=== PATIENT | female | born 1940 | race Caucasian/White ===

== ENCOUNTER 2023-08-12 09:37 | Inpatient (IN) | payer OTHER, SELFPAY ==
[2023-08-12] VITALS (11 sets, daily range): BP systolic 95–120; BP diastolic 51–85; BMI 28.0
[2023-08-12 05:21] LABS: % Basophils 0.3 % (0-2); % Eosinophils 0.6 % (0-6); % Immature Granulocytes 0.4 % (0-0.5); % Lymphocytes 7.9 % (20.5-51.1); % Monocytes 5.4 % (1.7-9.3); % Neutrophils 85.4 % (42.2-75.2); Absolute Lymphocytes 0.6 10^3/uL (1.2-3.4); Absolute Monocytes 0.4 10^3/uL (0.1-0.6); Hematocrit 39.5 % (37.0-47.0); Hemoglobin 13.2 g/dL (12.0-16.0); Mean Corp Hgb Conc. 33.4 g/dL (33.0-37.0); Mean Corpuscular Hgb 29.5 pg (27.0-31.0); Mean Corpuscular Volume 88.4 fL (81.0-99.0); Mean Platelet Volume 10.6 fL (7.4-10.4); Nucleated Red Blood Cells % 0 %; Platelet Count 197 10^3/uL (130-400); Red Blood Cell Count 4.47 10^6/uL (4.20-5.40)
[2023-08-12 05:33] LABS: ALT (SGPT) 15 U/L (0-35); AST (SGOT) 23 U/L (14-36); Albumin 3.2 g/dl (3.5-5.0); Alkaline Phosphatase 61 U/L (38-126); Blood Urea Nitrogen 14 mg/dl (7-17); Calcium 8.9 mg/dl (8.4-10.2); Carbon Dioxide 35 mmol/L (22-30); Chloride 97 mmol/L (98-107); Glucose 101 mg/dl (70-99); Lipase 63 U/L (23-300); Sodium 134 mmol/L (135-145); Total Protein 6.4 g/dl (6.3-8.2); eGFR > 60.00
--- NOTE | 2023-08-12 06:23 | ED.GENMED ---
History of Present Illness
General
Chief Complaint: Abdominal Pain
Time Seen by Provider: 08/12/23 06:23
Travel History
Have you had any contact with someone who has COVID-19?: No
Do you have any symptoms of coronavirus? Fever > 100 degrees, chills, cough, shortness of breath, sore throat, loss of taste or smell, muscle aches, or headache?: No
History of Present Illness
History of Present Illness:
HPI: Patient presents due to abdominal pain over the last 18 hours associated with nausea. She currently has no appetite. This feels similar to the time that she was admitted here with a Crohn's exacerbation. She is known to GI at [facility]. She chronically has loose stool. Her abdominal pain is diffuse. She has had no fevers.
EXAM:
GENERAL: Patient appears uncomfortable
HEENT: Moist oral mucosa
CARDIOVASCULAR: No murmurs, normal heart rate, regular rhythm, No chest wall tenderness
PULMONARY: No respiratory distress, breath sounds are clear and equal
ABDOMEN: Soft with no peritoneal signs, moderate diffuse tenderness
NEUROLOGIC: Good strength all extremities, no coordination deficits
PSYCHIATRIC: Appropriate mental status, normal insight and judgement
EXTREMITIES: Nontender, no edema, moves all extremities equally
SKIN: No rash, no lesions
TIME OF INITIAL ENCOUNTER: 6:30 AM
NUMBER AND COMPLEXITY OF PROBLEMS ADDRESSED AT THE ENCOUNTER
� Chronic conditions affecting care: A-fib, high blood pressure, hyperlipidemia, has had bowel obstruction, Crohn's disease, GERD
� Acute Exacerbation and/or Progression of Chronic Illness: Likely acute exacerbation of Crohn's disease
� Differential Diagnosis includes: Exacerbation of Crohn's disease, bowel obstruction, IBS, diverticulitis
AMOUNT AND/OR COMPLEXITY OF DATA TO BE REVIEWED AND ANALYZED
� I performed an independent evaluation of and my interpretation is:
EKG:
CT: I personally reviewed CT imaging and agree with radiologist interpretation of SBO
X-rays:
Laboratory Studies: White count is normal at 7.0, hemoglobin normal, bicarb noted to be elevated 35 otherwise chemistries relatively unremarkable
Other:
� Review of other/old records: The patient was seen here last October with CHF and was admitted here last September with abdominal pain�discharge summary suggest that this was related to an acute Crohn's flare
� Clinical information was obtained by an independent historian: Spoke to the daughter at bedside; I also spoke to granddaughter over the phone
� Prescriptions/Medications Considered but not given:
� Further testing considered but not performed:
RISK OF COMPLICATIONS AND/OR MORBIDITY OR MORTALITY OF PATIENT MANAGEMENT
� Social determinants of health affecting care: Lives at home
� Discussion with other providers: Notified general surgery; hospitalist for admission at about 9 AM, Dr. Wood
� Escalation of care including admission/observation vs risk of discharge considered: The patient appeared very uncomfortable on arrival, will give narcotic analgesia and obtain CT imaging. Labs are unremarkable. SBO was found
on CT. Patient refuses NG tube citing prior altered anatomy. Will hold off on NG tube placement as she has not been vomiting here. She was given IV fluids.
Past History
Past History
ED Past Medical History: Arrthythmia, CVA and Other (Crohn's disease)
ED Past Surgical History: Orthopedic and Other (Nose, left hip replacement left breast surgery)
Social History
Tobacco: Non-smoker
Alcohol: None
Drug: None
Personal:
Living: with family
Employment: Retired
Family History
Family History: Other (Noncontributory)
Phy Exam
Physical Exam
Physical Exam:
See HPI
Course
Orders/Labs/Results
Orders:
Orders
08/12/23 04:57
IV Insert/Care/Rem.- Treatment PRN
Urinalysis Reflex To Culture Urgent
Date Specimen was Collected: 08/12/23
Time Specimen was Collected: 04:57
03/18/24 05:03
C-Reactive Protein Urgent
Comment: ADD ON
Complete Blood Count/With Diff Urgent
Comprehensive Metabolic Panel Urgent
Lipase Urgent
08/12/23 06:26
Add On- LAB Urgent
Tests Added?: cRP
08/12/23 06:29
CT Abd/pelvis W Iv Cont Urgent
Comment:
Reason For Exam: diffuse abd pain h/o crohn's cannot davide po
08/12/23 06:30
0.9% Sodium Chloride 500 ml [Nss] 500 ml IV BOLUS
HYDROmorphone [Dilaudid] 0.5 mg IV NOW STA
Ondansetron Injectable [Zofran] 4 mg IV NOW STA
Abnormal Lab Results
08/12/23
05:03
MPV 10.6 H fL
(7.4-10.4)
Absolute Lymphs (auto) 0.6 L 10^3/uL
(1.2-3.4)
Neutrophils % 85.4 H %
(42.2-75.2)
Lymphocytes % 7.9 L %
(20.5-51.1)
Sodium 134 L mmol/L
(135-145)
Chloride 97 L mmol/L
(98-107)
Carbon Dioxide 35 H mmol/L
(22-30)
Creatinine 0.5 L mg/dL
(0.6-1.0)
Glucose 101 H mg/dl
(70-99)
Albumin 3.2 L g/dl
(3.5-5.0)
08/12/23 05:03
08/12/23 05:03
Vital Signs
Initial and Last Documented VS:
Initial Vital Signs
Pulse Resp BP Pulse Ox
108 24 120/85 94
08/12/23 04:15 08/12/23 04:15 08/12/23 04:15 08/12/23 04:15
Last Documented Vital Signs
Temp Pulse Resp BP Pulse Ox
97.8 F 108 24 105/62 100
08/12/23 07:28 08/12/23 04:15 08/12/23 04:15 08/12/23 08:00 08/12/23 08:30
*Critical Care Note
Total Time (30-74mins, 75-104mins- exclusive of procedures): Not Applicable
ED Attending Note
-
Portions of this chart may have been created with voice recognition software.� Occasional wrong word or��sound alike� substitutions may have occurred due to the inherent limitations of voice recognition software.
Discharge Plan
Departure
Patient Disposition: Admit
Date of Disposition: 08/12/23
Time of Disposition: 08:53
Presentation/result/management discussed w/ accepting MD/DO: Hospitalist
Discharge Problem:
Small bowel obstruction
Prescriptions:
No Action
pantoprazole 40 MG tablet,delayed release (DR/EC)
40 mg PO DAILY
multivitamin with folic acid [Tab-A-Varinder] 1 TABLET tablet
1 tab PO DAILY
Prolia 60 MG/ML syringe
60 mg SC [id number]
atorvastatin 40 mg Tablet
40 mg PO HS
furosemide [Lasix] 20 mg Tablet
20 mg PO DAILYPRN PRN (Reason: fluid )
Eliquis 5 mg Tablet
5 mg PO BID
metoprolol succinate 50 MG tablet extended release 24 hr
50 mg PO DAILY
alprazolam 1 mg tablet
1 mg PO HS
omega-3 acid ethyl esters 1 gram capsule
1 g PO DAILY
Visbiome 112.5 billion cell Capsule
1 cap PO DAILY
Entyvio 300 mg Recon Soln
300 mg IV Q4W
Referrals:
Johan Cunningham DO [Family Provider] -
Interventions
Interventions:
*Risk Screen - Suicide Last Done: 08/12/23 05:39
*Neglect/Abuse Screening Last Done: 08/12/23 05:39
*ED COVID-19 Vaccine History Last Done: 08/12/23 05:39
VS-Htrxxj-Cddzoweufk Assessment Last Done: 08/12/23 05:09
[2023-08-12] MEDS: NSS 500 IV (06:38)
[2023-08-12] MEDS: ZOFRAN 4 MG IV (06:40)
[2023-08-12] MEDS: DILAUDID 0.5 MG IV ×3 (06:40→12:55)
--- NOTE | 2023-08-12 09:18 | HPS.HSE ---
Family Physician
-
Family Physician: Johan Cunningham
Chief Complaint
-
Abdominal pain for 1 day
History of Present Illness
History taken from the patient and ER physician. 83 years old female with history of Crohn's disease presented with abdominal pain and for around 1 day duration. Patient reported she had bowel movement yesterday. She tells me she has not passed
gas today. In the emergency room, she did not have leukocytosis or fever. Scan of the abdomen pelvis showed distal small bowel obstruction with transition point. Patient reported nausea but no vomiting. Patient takes Skyrizi for Crohn's disease
treatment.
Medical History
Past Medical History
Past Medical History: Reports Other ( Paroxysmal atrial fibrillation, Crohn's disease, normocytic anemia, diverticulosis, history of breast cancer, skin cancer, hyperlipidemia, GERD.)
Past Surgical History: Reports Other (No recent major surgery)
Social History
Tobacco: Former Smoker
Alcohol: Occasional
Drug: None
Family History
Family History: Other (Grandson with IBD. Mother of bladder cancer.)
Allergies / Home Medications
Allergies reflects when Allergies were last updated in [employer].
Home Medications with original date entered in [employer]
Allergy/Medication List:
Allergies
Allergy/AdvReac Type Severity Reaction Status Date / Time
No Known Allergies Allergy Verified 08/12/23 04:18
Home Medications
multivitamin with folic acid 400 mcg tablet (Tab-A-Varinder) 1 tab PO DAILY Supplement 03/13/20
pantoprazole 40 mg tablet,delayed release 40 mg PO DAILY Gastrointestinal issue 03/13/20
alprazolam 1 mg tablet 1 mg PO HS Mental Health/Anxiety 09/05/22
apixaban 5 mg tablet (Eliquis) 5 mg PO BID Blood clot prevention/tx 09/05/22
atorvastatin 40 mg tablet 40 mg PO HS High cholesterol 09/05/22
metoprolol succinate 50 mg tablet,extended release 24 hr 50 mg PO HS Blood pressure 09/05/22
omega-3 acid ethyl esters 1 gram capsule 1 g PO BID Supplement 09/05/22
cyanocobalamin (vitamin B-12) 1,000 mcg tablet (Vitamin B-12) 1,000 mcg PO DAILY Supplement 08/12/23
ergocalciferol (vitamin D2) 1,250 mcg (50,000 unit) capsule 1,250 mcg PO FR Supplement 08/12/23
furosemide 40 mg tablet 40 mg PO DAILYPRN PRN foot swelling 08/12/23
risankizumab-rzaa 360 mg/2.4 mL (150 mg/mL) subcut wearable injector (Skyrizi) 2.4 mg SC MONTHLY Crohn's disease 08/12/23
Review of Systems
-
History Source: Patient
A 12 point ROS was completed and negative except as noted: Yes
Constitutional: Denies Fever or Chills
EENT: Denies Sore Throat
Respiratory: Denies Cough
Cardiac: Denies Chest Pain
Abdomen/GI: Reports Abdominal Pain and Nausea
: Denies Dysuria
Musculoskeletal: Denies Joint Pain
Skin: Denies Itching
Neurological: Denies Numbness
Endocrine: Denies Temp Intolerance
Hematologic/Lymphatic: Denies Bruising
Psych: Denies Panic Disorder
Physical Exam
Vital Signs
Vital Signs
Temp Pulse Resp BP Pulse Ox
97.8 F 108 24 105/62 100
08/12/23 07:28 08/12/23 04:15 08/12/23 04:15 08/12/23 08:00 08/12/23 08:30
Physical Exam
General: No Apparent Distress and Comfortable
HEENT: Moist mucous membranes and Atraumatic
Respiratory: Clear
Cardiac: S1/S2
GI: Soft, Tender (left side) and Distended
Genito-urinary: No costovertebral tender
Musculoskeletal: No Clubbing, No Cyanosis and No Edema
Skin: Warm
Neuro: Oriented; No Slurred Speech, Facial Droop or Tremors
Psych: Calm
Laboratory Results
-
08/12/23 05:03
08/12/23 05:03
Laboratory Results
Total Bilirubin 1.0 mg/dl (0.2-1.3) 08/12/23 05:03
AST 23 U/L (14-36) 08/12/23 05:03
ALT 15 U/L (0-35) 08/12/23 05:03
Alkaline Phosphatase 61 U/L (38-126) 08/12/23 05:03
Lipase 63 U/L (23-300) 08/12/23 05:03
Impression/Plan
-
Patient is an 83y F with PMH significant for A-Fib and Crohn's Disease who presents to ED complaining of abdominal pain.
# Small bowel obstruction
History of Crohn's Disease
Admit the patient to the hospital.
Start the patient on bowel rest regimen with IV fluid, n.p.o., IV PPI, IV pain medicine, IV nausea medicine
�- CT scan shows Distal small bowel obstruction with transition point in the anterior right para midline lower abdomen related to long segment terminal ileal loop of bowel wall thickening extending to the ileocecal junction.
Follow-up with surgery recommendation
Appreciate surgery help
#Paroxysmal atrial fibrillation
Heart rate is stable. Patient denies palpitation or chest pain
Will get EKG as baseline
She is NPO. Will hold Eliquis.
Monitor on telemetry.
The patient on IV metoprolol
�- prior diagnosis of CVA -
#Anxiety / Depression
Mood is cooperative
# Hyponatremia, monitor. Repeat BMP. Continue with IV fluid
#DVT Prophylaxis:�Subcu heparin
Code Status:� Full
Total time spent to see the patient, examine the patient on the floor, review data and lab results, discuss treatment plan with the patient, nursing staff and ER doctor around 75 minutes
[2023-08-12 09:44] LABS: Urine Albumin Trace (Neg - Trace); Urine Bilirubin Negative (Negative); Urine Character Clear (Clear); Urine Color Yellow; Urine Glucose Negative (Negative); Urine Ketone Negative (Negative); Urine Leukocyte Trace (Negative); Urine Nitrite Negative (Negative); Urine Occult Blood Negative (Negative); Urine Urobilinogen Negative (Neg - 1+)
[2023-08-12 09:56] LABS: Urine Red Blood Cell 0-2 /HPF (0-2)
[2023-08-12] MEDS: D5/0.9% SODIUM CHLORIDE 1000 IV (10:44)
--- NOTE | 2023-08-12 14:08 | CON.GS ---
Addendum entered and electronically signed by Oral Gil MD 08/12/23 15:55:
I saw and examined the patient independently.
The Patternmaker Grader's note was reviewed and I agree with the note, assessment and plan except where noted below.
Comment: This is an 83-year-old female with a known large hiatal hernia and Crohn's disease with periodic admissions for small bowel obstruction secondary to flare and a long segment stricture that has to date been managed nonoperatively. She is
also on Eliquis for paroxysmal A-fib her last dose was 08/11/2023 PM. Abdominal exam fairly benign, mildly distended. CT scan reviewed significant terminal ileal stricture spanning over 10 cm. On review of previous CT scans this appears to be
fairly chronic. Of note patient is not interested in surgery, though family states that if needed they would move forward with that.
No acute general surgery intervention warranted at this time.
Small bowel obstruction secondary to active Crohn's flare.
Recommend GI consult for management of IBD flare.
General surgery will continue to follow but hopefully this can be managed nonoperatively. Will defer to GI regarding diet advancement but would keep n.p.o. for now given distention and nausea.
I spent roughly 65 minutes in total for the care of this patient today including direct patient care and counseling, reviewing labs, imaging, coordination of care, as well as documentation.
Original Note:
Consultation
-
Date/Time Consultation Requested: 08/12/23 1234
Requesting Provider: Patrick
Reason for Consultation: sbo
Medical History
-
Chief Complaint: Abdominal pain
History of Present Illness:
This is an 83 yo female with a h/o large hiatal hernia (evaluated by Dr. Christianson in the past and being followed nonoperatively), CVA, Breast CA, PAF on Eliquis (LD 08/11/23 in the evening) and Crohn's for which she takes Skyrizi and follows with
Do as an OP. Her last Crohn's flare requiring hospitalization was about one year ago with terminal ileal involvement at that time. She presented through this ED today as she developed abdominal pain about 36 hours ago and has been unable to pass
stool or flatus since onset of pain. She denies active nausea or vomiting. Pain is improved with analgesics but still with right sided tenderness and abdominal distention on exam.
Past Medical History
Past Medical History: Arrhythmias (PAF on Eliquis (LD evening of 08/10)), Cancer (Skin tx MOHs, Breast tx with lumpectomy and XRT), CVA, GERD (known large hiatal hernia), HTN, Hypercholesterolemia and Other (Crohn's of large and small bowel on
skyrizi, anemia)
Past Surgical History: Orthopedic (L THR) and Other (left lumpectomy, MOHs)
Social History
Tobacco: Former Smoker
Alcohol: Occasional
Family History
Family History: Other (Crohn's)
Allergies / Home Medications
Allergy/AdvReac Type Severity Reaction Status Date / Time
No Known Allergies Allergy Verified 08/12/23 04:18
Medication Instructions Recorded Confirmed Type
multivitamin with folic acid 400 1 tab PO DAILY Supplement 03/13/20 08/12/23 History
mcg tablet (Tab-A-Varinder)
pantoprazole 40 mg tablet,delayed 40 mg PO DAILY Gastrointestinal 03/13/20 08/12/23 History
release issue
alprazolam 1 mg tablet 1 mg PO HS Mental Health/Anxiety 09/05/22 08/12/23 History
apixaban 5 mg tablet (Eliquis) 5 mg PO BID Blood clot 09/05/22 08/12/23 History
prevention/tx
atorvastatin 40 mg tablet 40 mg PO HS High cholesterol 09/05/22 08/12/23 History
metoprolol succinate 50 mg 50 mg PO HS Blood pressure 09/05/22 08/12/23 History
tablet,extended release 24 hr
omega-3 acid ethyl esters 1 gram 1 g PO BID Supplement 09/05/22 08/12/23 History
capsule
cyanocobalamin (vitamin B-12) 1,000 mcg PO DAILY Supplement 08/12/23 08/12/23 History
1,000 mcg tablet (Vitamin B-12)
ergocalciferol (vitamin D2) 1,250 1,250 mcg PO FR Supplement 08/12/23 08/12/23 History
mcg (50,000 unit) capsule
furosemide 40 mg tablet 40 mg PO DAILYPRN PRN foot swelling 08/12/23 08/12/23 History
risankizumab-rzaa 360 mg/2.4 mL 2.4 mg SC MONTHLY Crohn's disease 08/12/23 08/12/23 History
(150 mg/mL) subcut wearable
injector (Skyrizi)
Review of Systems
-
Unable to obtain full review of systems at this time due to: Language Barrier (Family notes patient's primary language is Amharic. She was able to answer questions/converse in Uzbek. Family assisted with history.)
History Source: Patient and Family
All other systems: Negative unless noted
A 10 point review of systems was completed, and was negative except as per HPI.
Physical Exam
Vital Signs
Temp Pulse Resp BP Pulse Ox
97.3 F 93 16 117/72 95
08/12/23 13:04 08/12/23 13:04 08/12/23 13:04 08/12/23 13:04 08/12/23 13:17
08/11/23 08/12/23 08/13/23
06:59 06:59 06:59
Actual Weight 70 kg 69.485 kg
Body Mass Index (BMI) 28.0
Lab Results
08/12/23 05:03
08/12/23 05:03
WBC 7.0 10^3/uL (4.8-10.8) 08/12/23 05:03
Hgb 13.2 g/dL (12.0-16.0) 08/12/23 05:03
Hct 39.5 % (37.0-47.0) 08/12/23 05:03
Plt Count 197 10^3/uL (130-400) 08/12/23 05:03
Abs Immat Gran (auto) 0.0 10^3/uL (0-0.05) 08/12/23 05:03
Neutrophils % 85.4 % (42.2-75.2) H 08/12/23 05:03
Physical Exam
General: Well Developed and No Apparent Distress
HEENT: Negative Moist Mucous Membranes
Respiratory: Non Labored Respirations
GI: Soft, Tender (right side) and Distended
Neuro: Awake, Alert and AO x 3
Psych: Calm
Data Reviewed
-
CT Scan: Image Personally Visualized and interpreted, Report Reviewed by me, Discussed with Physician, Discussed with Patient and Discussed with Family
Labs: Labs Reviewed by me, Discussed with Physician, Discussed with Patient and Discussed with Family
Old Records: Reviewed
Assessment / Plan
-
This is an 83 yo female with a h/o large hiatal hernia (managed nonoperatively), CVA, Breast CA, PAF on Eliquis (LD 08/11/23 in the evening) and Crohn's for which she takes Skyrizi and follows with Dr. Baig as an OP. She presented through this ED today
as she developed abdominal pain about 36 hours ago and has been unable to pass stool or flatus since onset of pain. She denies active nausea or vomiting. CT imaging reviewed with small bowel obstruction with transition point near terminal ileum
where there is a long segment of bowel wall that is thickened/strictured, suspect secondary to Crohn's flare.
--Discussed with Hospitalist, Dr. Nguyen, will consult GI to follow for medical management of Crohn's
--Hold Eliquis (LD 08/10 in the evening)
--No plans for emergent surgery today, will follow with medical management/bowel rest at this time
--- NOTE | 2023-08-12 15:22 | CON.GI ---
Addendum entered and electronically signed by Doc Rodriguez MD 08/12/23 16:08:
I saw and examined the patient.
The ASSOCIATE FINANCIAL REPRESENTATIVE or PA's note was reviewed and I agree with the note.
Comment: 83yo female with history of Crohn's disease currently on Skyrizi every 8 weeks presents with abd pain, nausea and no BMs. She usually has diarrhea that does not resolve, but weeks before her next Skyrizi dose has abd pain. She has failed
Stelara and Entyvio in the past. Her last colonoscopy in 2019 showed normal colon and small bowel. CT this admission shows long 60cm segement of wall thickening in the distal ileum extending to IC valve with proximal SB dilation.
REC:
NPO
Will start IV steroids, solumedrol 40mg IV daily, and abx zosyn
Hopefully responds to medical therapy
Surgery following if refractory to meds
Will follow
NGT if vomiting
Original Note:
Consultation
-
Date/Time Consultation Requested: 08/10/23 1407
Date/Time Consultation Performed: 08/12/23 1430
Requesting Provider: TREASURE Avila
Performing Provider: Dr. Rodriguez/TREASURE Falcon
Reason for Consultation: crohns disease /bowel obstruction
Medical History
Chief Complaint / HPI
Chief Complaint: abdominal pain
History of Present Illness:
83 yo female with a PMH significant for longstanding small/large bowel Crohn's who has failed Sterlara and Entyvio who was started on Skyrizi in September 2022 who has a hx small bowel obstruction, GERD, large paraesophageal hernia, chronic abdominal
pain, paroxysmal atrial fibrillation on Eliquis, CVA, hyperlipidemia, hypertension, iron deficiency anemia, history of breast cancer, who presented to the emergency room with complaints of worsening abdominal pain and no BM since 12 pm on 08/11/23
where she usually has 10-12 daily. The patient's daughter and granddaughter assisted with translation as she is primarily French speaking although does speak some Kazakh. Patient's granddaughter states that she is currently on maintenance dose
Skyrizi every 8 weeks. States that the patient usually feels well the first 4 to 5 weeks and then afterwards has abdominal pain and cramping. She states that she always has at least 10-12 loose bowel movements daily. This has never changed. It
has always been abdominal discomfort that has been her main complaint. The patient spends a couple months out of the year in [place] she returned back in February earlier this year. She states that the patient is due for her next dose of Skyrizi on
August 24. And that she been having intermittent abdominal discomfort for the past 2 weeks. She states that yesterday she ate breakfast and lunch and then she abruptly stopped having bowel movements around noon. She had nausea however did not have
any vomiting. She tried to induce vomiting without any success. She denies any fevers, chills, melena, hematochezia, dysphagia or odynophagia. No early satiety or unintentional weight loss. She has had no sick contacts, no recent travel. She
did have a recent antibiotic for a UTI a couple weeks back. They believe this was Cipro.WBC 7.0, hemoglobin 13.2, hematocrit 39.5, platelets 197, sodium 134, potassium 4.0, chloride 97, CO2 35, BUN 14, creatinine 0.5, glucose 101, total bilirubin
1.0, AST 23, ALT 15, alk phos 61, CRP 8.50, lipase 63. CT of the abdomen pelvis with IV contrast shows distal small bowel obstruction with transition point in the anterior right paramidline lower abdomen related to long segment of terminal ileal
loop of bowel wall thickening extending to the ileocecal junction.
Past Medical History
Past Medical History: Arrhythmias (atrial fibrillation on eliquis), Cancer (breast cancer s/p lumpectomy and XRT), CVA, GERD (large hiatal hernia), HTN, Hypercholesterolemia and Other (Crohn's disease of large/small bowel on entyvio, Iron deficiency
anemia)
Past Surgical History: Orthopedic (left total hip replacement december 2021 s/p fall) and Other (left lumpectomy, Mohs procedure)
Social History
Tobacco: Former Smoker
Alcohol: None
Drug: None
Living: Alone
Family History
Family History: Reviewed & Not Pertinent
Allergies / Home Medications
Allergy/AdvReac Type Severity Reaction Status Date / Time
No Known Allergies Allergy Verified 08/12/23 04:18
Medication Instructions Recorded
multivitamin with folic acid 400 1 tab PO DAILY Supplement 03/13/20
mcg tablet (Tab-A-Varinder)
pantoprazole 40 mg tablet,delayed 40 mg PO DAILY Gastrointestinal 03/13/20
release issue
alprazolam 1 mg tablet 1 mg PO HS Mental Health/Anxiety 09/05/22
apixaban 5 mg tablet (Eliquis) 5 mg PO BID Blood clot 09/05/22
prevention/tx
atorvastatin 40 mg tablet 40 mg PO HS High cholesterol 09/05/22
metoprolol succinate 50 mg 50 mg PO HS Blood pressure 09/05/22
tablet,extended release 24 hr
omega-3 acid ethyl esters 1 gram 1 g PO BID Supplement 09/05/22
capsule
cyanocobalamin (vitamin B-12) 1,000 mcg PO DAILY Supplement 08/12/23
1,000 mcg tablet (Vitamin B-12)
ergocalciferol (vitamin D2) 1,250 1,250 mcg PO FR Supplement 08/12/23
mcg (50,000 unit) capsule
furosemide 40 mg tablet 40 mg PO DAILYPRN PRN foot swelling 08/12/23
risankizumab-rzaa 360 mg/2.4 mL 2.4 mg SC MONTHLY Crohn's disease 08/12/23
(150 mg/mL) subcut wearable
injector (Skyrizi)
Review of Systems
-
All other systems: A 12 pt ROS was Negative except as stated above in HPI
Vital Signs
Temp Pulse Resp BP Pulse Ox
97.3 F 93 16 117/72 95
08/12/23 13:04 08/12/23 13:04 08/12/23 13:04 08/12/23 13:04 08/12/23 13:17
Physical Exam
Exam
General: No Apparent Distress
HEENT: Anicteric
Respiratory: Clear (anterior)
Cardiac: Regular Rhythm
GI: Soft, Non Distended, Normal Bowel Sounds and Tender (mild lower abd)
Skin: Warm and Dry
Psych: Calm
Results
WBC 7.0 10^3/uL (4.8-10.8) 08/12/23 05:03
Hgb 13.2 g/dL (12.0-16.0) 08/12/23 05:03
Hct 39.5 % (37.0-47.0) 08/12/23 05:03
MCV 88.4 fL (81.0-99.0) 08/12/23 05:03
Plt Count 197 10^3/uL (130-400) 08/12/23 05:03
Absolute Neuts (auto) 6.0 10^3/uL (1.4-6.5) 08/12/23 05:03
Sodium 134 mmol/L (135-145) L 08/12/23 05:03
Potassium 4.0 mmol/L (3.5-5.1) 08/12/23 05:03
Chloride 97 mmol/L (98-107) L 08/12/23 05:03
Carbon Dioxide 35 mmol/L (22-30) H 08/12/23 05:03
BUN 14 mg/dl (7-17) 08/12/23 05:03
Creatinine 0.5 mg/dL (0.6-1.0) L 08/12/23 05:03
Calcium 8.9 mg/dl (8.4-10.2) 08/12/23 05:03
Total Bilirubin 1.0 mg/dl (0.2-1.3) 08/12/23 05:03
AST 23 U/L (14-36) 08/12/23 05:03
ALT 15 U/L (0-35) 08/12/23 05:03
Alkaline Phosphatase 61 U/L (38-126) 08/12/23 05:03
Lipase 63 U/L (23-300) 08/12/23 05:03
Diagnostic Image Results:
CT Abd/Pelvis with IV contrast:
1. Distal small bowel obstruction with transition point in the anterior right para midline lower abdomen related to long segment terminal ileal loop of bowel wall thickening extending to the ileocecal junction.
11/08/21 MR enterography: IMPRESSION: Since the recent CT, the small bowel obstruction has resolved. There are multiple thick-walled, hyperenhancing small bowel loops in the lower anterior abdomen bilaterally. Findings worrisome for active Crohn's
disease. This has worsened compared with the previous MRI. Inflammation of these bowel loops is likely responsible for the prior obstruction that was shown by the CT. Redemonstration of mesenteric inflammation/scarring and mild mesenteric
adenopathy. Small amount of ascites. Cholelithiasis. Fat and fluid-containing right inguinal hernia. Multiple uterine fibroids. Large paraesophageal hernia. This is incompletely imaged on this exam. Probable hemangioma in the right hepatic lobe.
This is stable dating back to 02/28/2021. Follow-up MRI abdomen in 6 months recommended to reevaluate this finding.
Prior GI Procedures:
EGD:� 03/14/2020, Dr. Baig: Normal esophagus. Erythematous mucosa in the antrum. 6 cm hiatal hernia. Normal duodenal bulb, first portion of the duodenum and second portion of the duodenum. No specimens collected.
Colonoscopy:� 03/15/2020, Dr. Baig: The examined portion of the ileum was normal. Biopsied. Diverticulosis in the sigmoid colon and in the descending colon. Non-bleeding internal hemorrhoids. Four biopsies were obtained in the rectum, in the sigmoid
colon, in the descending colon, in the transverse colon, in the ascending colon and in the cecum. Random bx negative.
Assessment / Plan
-
83 yo female with a PMH significant for longstanding small/large bowel Crohn's who has failed Sterlara and Entyvio who was started on Skyrizi in September 2022 who has a hx small bowel obstruction, GERD, large paraesophageal hernia, chronic abdominal
pain, paroxysmal atrial fibrillation on Eliquis, CVA, hyperlipidemia, hypertension, iron deficiency anemia, history of breast cancer, who presented to the emergency room with complaints of worsening abdominal pain and no BM since 12 pm on 08/11/23
where she usually has 10-12 daily. WBC 7.0, hemoglobin 13.2, hematocrit 39.5, platelets 197, sodium 134, potassium 4.0, chloride 97, CO2 35, BUN 14, creatinine 0.5, glucose 101, total bilirubin 1.0, AST 23, ALT 15, alk phos 61, CRP 8.50, lipase 63.
CT of the abdomen pelvis with IV contrast shows distal small bowel obstruction with transition point in the anterior right paramidline lower abdomen related to long segment of terminal ileal loop of bowel wall thickening extending to the ileocecal
junction.
Impression:
Distal SBO
Crohns disease
Plan:
-Start Zosyn 3.375 mg q 6 hr
-Start IV Solumedrol 40 mg IV
-Continue Pantoprazole
-NPO
-IVF
-Surgery following
-
-
Thank you for consultation and allowing me to participate in the patient's care. Please call the regional psychiatric director GI physician during the after hours with any questions or concerns.
[2023-08-12] MEDS: ZOSYN 50 IV ×2 (15:30→21:29)
[2023-08-12] MEDS: SOLU-MEDROL PF 40 MG IV (15:30)
[2023-08-12] MEDS: HEPARIN 5000 UNITS SC (21:27)
[2023-08-13] VITALS (7 sets, daily range): BP systolic 95–135; BP diastolic 56–80; BMI 28.0
[2023-08-13] MEDS: D5/0.9% SODIUM CHLORIDE 1000 IV ×2 (02:19→14:55)
[2023-08-13] MEDS: ZOSYN 50 IV ×4 (05:09→22:53)
--- NOTE | 2023-08-13 07:15 | PTCARENOTE ---
c/o Lt shoulder pain extending to Lt axilla @ 0640. Monitor shows SR 60's. 109/65 POX 100% on 2L.Did not want pain med. States that pain is currently improved.
[2023-08-13] MEDS: SOLU-MEDROL PF 20 MG IV ×2 (08:59→16:01)
[2023-08-13] MEDS: PROTONIX IV 40 MG IV (09:00)
[2023-08-13] MEDS: NSS (PRESERVATIVE FREE) 10 ML IV (09:00)
--- NOTE | 2023-08-13 09:00 | W.PN.HOSP.TC ---
Today's Communication/Plan
-
.
Assessment / Plan
Assessment / Plan
Physical Exam
General: No Apparent Distress and Comfortable
HEENT: Moist mucous membranes and Atraumatic
Respiratory: Clear
Cardiac: S1/S2
GI: Soft, non Tender.
Genito-urinary: No costovertebral tender
Musculoskeletal: No Clubbing, No Cyanosis and No Edema
Skin: Warm
Neuro: Oriented; No Slurred Speech, Facial Droop or Tremors
Psych: Calm
Patient is an 83y F with PMH significant for A-Fib and Crohn's Disease who presents to ED complaining of abdominal pain.
# Small bowel obstruction likely due to stricture/ inflammation from Crohn's Disease
she is better today. Had BM( normal looking/loose), passing gas. No abd pain over night. No nausea.
Can advance to liquid
c/w IV Steroid, IV ABx, IV PPI, IV pain medicine, IV nausea medicine
�- CT scan shows Distal small bowel obstruction with transition point in the anterior right para midline lower abdomen related to long segment terminal ileal loop of bowel wall thickening extending to the ileocecal junction.
Appreciate surgery & GI help
#Paroxysmal atrial fibrillation
Heart rate is stable.� Patient denies palpitation or chest pain
She seems to improve with medical TX, we can restart Eliquis if she continues to improve and less likely to need surgical intervention.
Monitor on telemetry.
The patient on IV metoprolol, can change to oral TX.
�- prior diagnosis of CVA -
#Anxiety / Depression
Mood is cooperative
# Hyponatremia, monitor.� Repeat BMP in am .� Continue with IV fluid
#DVT Prophylaxis:�Subcu heparin
Code Status:� Full
�Total time spent to see the patient, examine the patient on the floor, review data and lab results, discuss treatment plan with the patient, nursing staff around 55 minutes
Anticipated Discharge: 24 - 48 hours
Subjective/Interval History
-
Date of Service: August 13, 2023
She passed gas and BM
No abd pain
Wants to eat, denies nausea
Objective Data
-
Vital Signs:
Vital Signs
Temp Pulse Resp BP Pulse Ox
97.6 F 68 18 109/65 100
08/13/23 07:00 08/13/23 07:00 08/13/23 07:00 08/13/23 07:00 08/13/23 07:00
I&O
08/12/23 08/13/23 08/14/23
06:59 06:59 06:59
Intake Total 980 / 980
Balance 980 / 980
[2023-08-13] MEDS: HEPARIN 5000 UNITS SC ×2 (09:01→20:07)
--- NOTE | 2023-08-13 11:00 | W.PN.GI.CBS2 ---
Addendum entered and electronically signed by Goyo Hackett MD 08/13/23 18:47:
I saw and examined the patient.
The WIND UP OPERATOR or PA's note was reviewed and I agree with the note.
Comment: 83-year-old female past medical history of longstanding small large bowel Crohn's who failed Stelara and Entyvio and been on Skyrizi since September 2022 overall doing well until came in with a small bowel obstruction. Improving with steroids
and antibiotics. Will start clear liquid diet as having bowel movements. Can advance diet tomorrow to low residue if continues to do well for possible discharge.
When she is discharged on oral meds, I would do prednisone 40 x 1 week, 30 x 1 week, 20 x 1 week, 10 x 1 week, 5 x 1 week. Patient to take vitamin D and calcium with prednisone [id number]. Additionally, can do a 7-day course (total
antibiotic course) of Levaquin and Flagyl. Upon discharge, she will need close follow-up with Dr. Ramirez regarding her medications. I discussed with her son at bedside. He prefers that her Skyrizi interval is increased. We discussed that this is
off label use of there is 1 study of 12 patients it does show improvement. We discussed there are other options for biologic such as anti-TNF's, Rinvoq although typically need to fail anti-TNF . Courtney s/w Dr. Baig to alert her of patient's
hospitalization and msg sent to front facer to schedule close outpatient follow up.
Original Note:
Today's Communication / Plan
-
Continue current plan
Assessment / Plan
-
83 yo female with a PMH significant for longstanding small/large bowel Crohn's who has failed Sterlara and Entyvio who was started on Skyrizi in September 2022 who has a hx small bowel obstruction, GERD, large paraesophageal hernia, chronic abdominal
pain, paroxysmal atrial fibrillation on Eliquis, CVA, hyperlipidemia, hypertension, iron deficiency anemia, history of breast cancer, who presented to the emergency room with complaints of worsening abdominal pain and no BM since 12 pm on 08/11/23
where she usually has 10-12 daily. WBC 7.0, hemoglobin 13.2, hematocrit 39.5, platelets 197, sodium 134, potassium 4.0, chloride 97, CO2 35, BUN 14, creatinine 0.5, glucose 101, total bilirubin 1.0, AST 23, ALT 15, alk phos 61, CRP 8.50, lipase 63.
CT of the abdomen pelvis with IV contrast shows distal small bowel obstruction with transition point in the anterior right paramidline lower abdomen related to long segment of terminal ileal loop of bowel wall thickening extending to the ileocecal
junction.
Impression:
Distal SBO
Crohns disease
Plan:
-Continue Zosyn 3.375 mg q 6 hr for now
-Continue Solumedrol 20 mg IV every 8 hours
-Continue Pantoprazole
-NPO until more movement with bowel movements and flatus
-IVF
-Surgery following
Subjective
Subjective
Date of Service: August 13, 2023
Patient had small loose bowel movement brown in color this morning. Patient showed me a picture which confirms. Passed small amount of flatus as well this morning. Patient states she feels less bloated and less abdominal discomfort.
Objective
Data Reviewed
Laboratory Data:
Laboratory Results
08/12/23 05:03
08/12/23 05:03
Laboratory Results
Total Bilirubin 1.0 mg/dl (0.2-1.3) 08/12/23 05:03
AST 23 U/L (14-36) 08/12/23 05:03
ALT 15 U/L (0-35) 08/12/23 05:03
Alkaline Phosphatase 61 U/L (38-126) 08/12/23 05:03
Lipase 63 U/L (23-300) 08/12/23 05:03
Vital Signs and I&O:
Vital Signs
Temp Pulse Resp BP Pulse Ox
97.6 F 68 18 109/65 100
08/13/23 07:00 08/13/23 07:00 08/13/23 07:00 08/13/23 07:00 08/13/23 07:00
I&O
08/12/23 08/13/23 08/14/23
06:59 06:59 06:59
Intake Total 980 / 980
Balance 980 / 980
Physical Exam
Physical Exam
HEENT: Anicteric
Cardiology: Normal Sinus Rhythm
Pulmonary: Clear
GI: Soft, Distended (Mildly distended, less than yesterday, soft), Non Tender and Normal Bowel Sounds
Neuro: Non Focal
--- NOTE | 2023-08-13 15:15 | W.PN.GS2 ---
Addendum entered and electronically signed by Jonny Christianson MD 08/13/23 17:08:
Patient seen and examined independently.
Feels improved, less abdominal pain. No nausea or vomiting. Passing loose stools and flatus. No fevers.
Gen: NAD
Abd: soft, mild tenderness and distension, non-peritoneal
Patient is an 83 yo F p/w SBO secondary to stricturing Crohn's
Clinical improvement. Patient does not wish to proceed with surgical intervention. Defer management to GI.
-- No plans for surgical intervention given non-operative improvement and patients wishes
-- Medical management of Crohn's and diet per GI
-- Call with any questions or concerns
Original Note:
Today's Communication / Plan
-
- Continue non-operative management
- Defer to GI to advance diet
Assessment / Plan
-
83 year old female with small bowel obstruction secondary to crohn's disease exacerbation.
- Improvement of symptoms with evidence of return of bowel function
- Defer to GI to advance diet
- IV steroids, PPI, abx
- Antiemetic and pain control PRN
- Marked improvement without surgical intervention. Will continue to follow
- Heparin for DVT prophylaxis
Subjective Data
-
Date of Service: August 13, 2023
Pt feels better today. Nausea resolved, abdominal pain improved. Loose, non-bloody bowel movement today similar to her usual bowel habits, passing flatus. Pt is NPO, appetite has returned and patient requests food.
Objective Data
-
Intake and Output
08/12/23 08/13/23 08/14/23
06:59 06:59 06:59
Intake Total 980 / 980
Balance 980 / 980
Intake:
IV fluids (Total) 880 / 880
IV piggybacks 100 / 100
Other:
Number of approximated SMALL 1
amounts of urine
Number of approximated MODERATE 3
amounts of urine
Vital Signs
Temp Pulse Resp BP Pulse Ox
98 F 69 18 124/63 93
08/13/23 11:00 08/13/23 11:00 08/13/23 11:00 08/13/23 11:00 08/13/23 11:00
Lab Results
08/12/23 05:03
08/12/23 05:03
Calcium 8.9 mg/dl (8.4-10.2) 08/12/23 05:03
Total Bilirubin 1.0 mg/dl (0.2-1.3) 08/12/23 05:03
AST 23 U/L (14-36) 08/12/23 05:03
ALT 15 U/L (0-35) 08/12/23 05:03
Alkaline Phosphatase 61 U/L (38-126) 08/12/23 05:03
Total Protein 6.4 g/dl (6.3-8.2) 08/12/23 05:03
Albumin 3.2 g/dl (3.5-5.0) L 08/12/23 05:03
Physical Exam
-
General: Well-appearing, in no acute distress
Heart: Regular rate and rhythm, S1-S2 normal
Lungs: Clear to auscultation bilaterally
Abdomen: Normal bowel sounds in all quadrants, mild tympany, mild distention, soft, tender to deep palpation, no guarding or rebound
Extremities: Bilateral LE 1+ edema
--- NOTE | 2023-08-13 16:10 | CM ---
CM following re: d/c planning
Chart reviewed
CM met with the patient at bedside; IA completed
Pt resides alone in a 1st floor apartment with no JILL there is elevator
TOWEL SORTER patient reports independence at baseline
Pt reports no previous SNF/VN hx however she does have a walker for use as needed
Pt has prescription coverage and [facility]
Pt PCP-Johan Cunningham
Per PT eval patient has no skilled needs
CM will continue to monitor patient progress and assist with any needs at d/c as indicated
PLAN; d/c home no needs anticipated
[2023-08-14] MEDS: SOLU-MEDROL PF 20 MG IV ×2 (00:07→09:01)
[2023-08-14] MEDS: MELATONIN 5 MG PO (00:33)
[2023-08-14] MEDS: D5/0.9% SODIUM CHLORIDE 1000 IV (03:38)
[2023-08-14] MEDS: ZOSYN 50 IV ×2 (03:39→09:02)
[2023-08-14 03:50] VITALS: BP 118/63
[2023-08-14 06:00] VITALS: BMI 28.5
[2023-08-14 07:00] VITALS: BP 122/57
[2023-08-14 08:04] LABS: Hematocrit 36.7 % (37.0-47.0); Hemoglobin 11.7 g/dL (12.0-16.0); Mean Corp Hgb Conc. 31.9 g/dL (33.0-37.0); Mean Corpuscular Hgb 29.5 pg (27.0-31.0); Mean Corpuscular Volume 92.4 fL (81.0-99.0); Mean Platelet Volume 11.3 fL (7.4-10.4); Platelet Count 201 10^3/uL (130-400); Red Blood Cell Count 3.97 10^6/uL (4.20-5.40); Red Cell Dist. Width 13.2 % (11.5-14.5); White Blood Cell Count 3.3 10^3/uL (4.8-10.8)
[2023-08-14 08:08] LABS: Blood Urea Nitrogen 10 mg/dl (7-17); Calcium 8.8 mg/dl (8.4-10.2); Carbon Dioxide 33 mmol/L (22-30); Chloride 99 mmol/L (98-107); Estimated Creatinine Clearance 63 ml/min; Glucose 121 mg/dl (70-99); Potassium 3.5 mmol/L (3.5-5.1); Sodium 138 mmol/L (135-145); eGFR > 60.00
[2023-08-14] MEDS: HEPARIN 5000 UNITS SC (09:00)
[2023-08-14] MEDS: NSS (PRESERVATIVE FREE) 10 ML IV (09:01)
[2023-08-14] MEDS: PROTONIX IV 40 MG IV (09:01)
--- NOTE | 2023-08-14 09:22 | W.PN.GI.CBS2 ---
Addendum entered and electronically signed by Goyo Hackett MD 08/14/23 12:10:
I saw and examined the patient.
The TUTOR or PA's note was reviewed and I agree with the note.
Comment: 83-year-old female past medical history of longstanding small large bowel Crohn's who failed Stelara and Entyvio and been on Skyrizi since September 2022 overall doing well until came in with a small bowel obstruction.� Improving with steroids
and antibiotics.� Patient states doing better today. Will advance to low residue diet. C/o palpitations I d/w hospitalist.
When she is discharged on oral meds, I would do prednisone 40 x 1 week, 30 x 1 week, 20 x 1 week, 10 x 1 week, 5 x 1 week.� Patient to take vitamin D and calcium with prednisone [id number].� Additionally, can do a 7-day course (total
antibiotic course) of Levaquin and Flagyl.� Upon discharge, she will need close follow-up with Dr. Baig regarding her medications.� I discussed with her granddaughter on the phone. Close follow up has been scheduled 08/29 at [address] Baig. I d/w
Dr. Baig as well.
On d/w Dr. Nguyen likely discharge today.
Original Note:
Today's Communication / Plan
-
Advance diet
Assessment / Plan
-
83 yo female with a PMH significant for longstanding small/large bowel Crohn's who has failed Sterlara and Entyvio who was started on Skyrizi in September 2022 who has a hx small bowel obstruction, GERD, large paraesophageal hernia, chronic abdominal
pain, paroxysmal atrial fibrillation on Eliquis, CVA, hyperlipidemia, hypertension, iron deficiency anemia, history of breast cancer, who presented to the emergency room with complaints of worsening abdominal pain and no BM since 12 pm on 08/11/23
where she usually has 10-12 daily. WBC 7.0, hemoglobin 13.2, hematocrit 39.5, platelets 197, sodium 134, potassium 4.0, chloride 97, CO2 35, BUN 14, creatinine 0.5, glucose 101, total bilirubin 1.0, AST 23, ALT 15, alk phos 61, CRP 8.50, lipase 63.
CT of the abdomen pelvis with IV contrast shows distal small bowel obstruction with transition point in the anterior right paramidline lower abdomen related to long segment of terminal ileal loop of bowel wall thickening extending to the ileocecal
junction.
Impression:
Distal SBO
Crohns disease
Plan:
-Continue Zosyn 3.375 mg q 6 hr for now
-Continue Solumedrol 20 mg IV every 8 hours
-Continue Pantoprazole
-Advance to full liquid for lunch, if tolerates then low residue.
-Outpatient follow up appt with Dr. Baig arranged for 08/30/23 at 7:30
When she is discharged on oral meds, I would do prednisone 40 x 1 week, 30 x 1 week, 20 x 1 week, 10 x 1 week, 5 x 1 week.� Patient to take vitamin D and calcium with prednisone [id number].� Additionally, can do a 7-day course (total
antibiotic course) of Levaquin and Flagyl.� Upon discharge, she will need close follow-up with Dr. Baig regarding her medications.� I discussed with her son at bedside.� He prefers that her Skyrizi interval is increased.� We discussed that this is off
label use of there is 1 study of 12 patients it does show improvement.� We discussed there are other options for biologic such as anti-TNF's, Rinvoq although typically need to fail anti-TNF
Subjective
Subjective
Date of Service: August 14, 2023
Patient states that she had 3 bowel movements yesterday and 1 this morning. She tolerated clear liquid diet last evening and had a coffee this morning for breakfast. She felt that the coffee was enough for her and did not proceed to any other
liquids. She feels as if she will be able to have full liquids for lunch. She denies any abdominal pain. She is passing flatus.
Objective
Data Reviewed
Laboratory Data:
Laboratory Results
08/14/23 07:01
03/20/24 07:01
Laboratory Results
Total Bilirubin 1.0 mg/dl (0.2-1.3) 08/12/23 05:03
AST 23 U/L (14-36) 08/12/23 05:03
ALT 15 U/L (0-35) 08/12/23 05:03
Alkaline Phosphatase 61 U/L (38-126) 08/12/23 05:03
Lipase 63 U/L (23-300) 08/12/23 05:03
Vital Signs and I&O:
Vital Signs
Temp Pulse Resp BP Pulse Ox
97.6 F 82 18 122/57 94
08/14/23 07:00 08/14/23 07:00 08/14/23 07:00 08/14/23 07:00 08/14/23 07:00
I&O
08/13/23 08/14/23 08/15/23
06:59 06:59 06:59
Intake Total 980 / 980 1460 / 1460
Balance 980 / 980 1460 / 1460
Physical Exam
Physical Exam
HEENT: Anicteric
Cardiology: Normal Sinus Rhythm
Pulmonary: Clear
GI: Soft, Non Distended, Non Tender and Normal Bowel Sounds
Neuro: Non Focal
--- NOTE | 2023-08-14 10:23 | W.PN.HOSP.TC ---
Addendum entered and electronically signed by Kristyn Nguyen MD 08/14/23 13:48:
Addendum
Patient seen again. No abdominal pain after low residue diet. She insisted on going home.
I called her son and discussed discharge instructions. Advised regarding potential side effects of Flagyl and Levaquin. Given Compazine prescription for nausea as needed.
Discussed with director case management
Total discharge time spent to see the patient, examine the patient on the floor, review data and lab results, discuss discharge plan with the patient, nursing staff around 65 minutes
Original Note:
Today's Communication/Plan
-
Patient is asking to go home , hopefully she can stay another night
likely dc in am after advancing diet
Start Eliquis
c/w IV Abx and IV steroid for now
Assessment / Plan
Assessment / Plan
Physical Exam
General: No Apparent Distress and Comfortable
HEENT: Moist mucous membranes and Atraumatic
Respiratory: Clear
Cardiac: S1/S2
GI: Soft, non Tender.
Genito-urinary: No costovertebral tender
Musculoskeletal: No Clubbing, No Cyanosis and No Edema
Skin: Warm
Neuro: Oriented; No Slurred Speech, Facial Droop or Tremors
Psych: Calm
Patient is an 83y F with PMH significant for A-Fib and Crohn's Disease who presents to ED complaining of abdominal pain.
# Small bowel obstruction likely due to stricture/ inflammation from Crohn's Disease
she is better today. Pt denies abd pain, wants to go home.
She tolerated clear liquids, we can advance slowly
c/w IV Steroid, IV ABx, IV PPI, IV pain medicine, IV nausea medicine
�- CT scan shows Distal small bowel obstruction with transition point in the anterior right para midline lower abdomen related to long segment terminal ileal loop of bowel wall thickening extending to the ileocecal junction.
Appreciate surgery & GI help
#Paroxysmal atrial fibrillation
Heart rate is stable.� Patient denies palpitation or chest pain
She seems to improve with medical TX, will start Eliquis
change to oral BB
�- prior diagnosis of CVA -
#Anxiety / Depression
Mood is cooperative
# Hyponatremia, resolved with IVF.
#DVT Prophylaxis: dc �Subcu heparin while back on Eliquis.
Code Status:� Full
�Total time spent to see the patient, examine the patient on the floor, review data and lab results, discuss treatment plan with the patient, nursing staff around 55 minutes
Anticipated Discharge: Within 24 hours
Subjective/Interval History
-
Date of Service: August 14, 2023
She wants to go home
Denies pain or nausea
Objective Data
-
Labs:
Laboratory Results
08/14/23
07:01
WBC 3.3 L
Hgb 11.7 L
Hct 36.7 L
Plt Count 201
Sodium 138
Potassium 3.5
Chloride 99
Carbon Dioxide 33 H
BUN 10
Creatinine 0.6
Glucose 121 H
Calcium 8.8
Vital Signs:
Vital Signs
Temp Pulse Resp BP Pulse Ox
97.6 F 82 18 122/57 94
08/14/23 07:00 08/14/23 07:00 08/14/23 07:00 08/14/23 07:00 08/14/23 07:00
I&O
08/13/23 08/14/23 08/15/23
06:59 06:59 06:59
Intake Total 980 / 980 1460 / 1460
Balance 980 / 980 1460 / 1460
[2023-08-14] MEDS: ELIQUIS 5 MG PO (10:54)
[2023-08-14] MEDS: TOPROL XL 50 MG PO (10:54)
--- NOTE | 2023-08-14 13:42 | W.DCSUMMARY ---
Discharge Summary
Discharge Data
Date of Admission: 08/12/23
Date of Discharge: 08/14/23
-
Pending Results: No
Hospital Course
83 years old female presented with abdominal pain. Patient had history of longstanding Crohn's disease. She did not have leukocytosis or fever. She had nausea. Scan of the abdomen and pelvis showed distal small bowel obstruction with transition
point in the anterior right para midline lower abdomen related to long segment terminal ileal loop of bowel wall thickening extending to the ileocecal junction. Patient was evaluated by surgery and gastroenterology doctors. Obstruction was likely
related to Crohn's disease flare-up. Patient received intravenous steroids and intravenous antibiotics. Patient started to improve with resolution of abdominal pain. Diet was advanced slowly. Patient expressed her wishes to go home and continue
modified diet at home. Patient also expressed her wishes to not pursue surgical option if needed. Patient did not have fevers. She started to have her regular normal bowel movements which were loose frequent stools. Patient was on biologic
treatment with Skyrizi. Gastroenterology doctor recommended prolonged course of tapering prednisone at home. She was given prescription for antibiotic including Flagyl and Levaquin to finish the course at home. Potential side effects of Flagyl
and Levaquin were discussed with the patient and her family. She verbalized understanding. Patient remained hemodynamically stable and was discharged in a stable condition.
Discharge Plan
-
Patient Disposition: Home with Home Care
Discharge Diagnosis/Procedures: Small bowel obstruction. Improving with steroids and antibiotics. History of longstanding small large bowel Crohn's.
You were seen by gastroenterology and surgery doctors. You had bowel rest and diet advanced to slowly. You started to feel better and you wanted to go home. Please follow with diet recommendation and follow-up with your primary shoe parts caser
for further management.
You will need to finish the course of steroids. Finish the course of antibiotic. Recommendation to use Levaquin which is a quinolone antibiotic One of Levaquin side effects include tendinitis. If you start to have joint pain/muscle pain, you will
need to stop taking Levaquin and call your primary care doctor or shoe parts caser.
Flagyl can cause nausea.
Condition: Fair
Diet: Low Residue
Referrals:
Elva Baig MD [Active] - 08/30/23 7:30 am (Please call to reschedule if you can not keep this appointment. If your insurance requires a referral please contact your primary care physician prior to your appointment. )
Johan Cunningham DO [Family Provider] - in one to two weeks
Prescriptions:
New
metronidazole 500 mg tablet
500 mg PO TID Qty: 12 0RF
levofloxacin 750 mg tablet
750 mg PO DAILY Qty: 4 0RF
prednisone 10 mg tablet
40 mg PO DAILY Qty: 74 0RF
Rx Instructions:
40 mg daily X 1 wk,30 mg daily X 1 wk, then 20 mg daily for 1 wk, 10 mg daily X 1 wk, 5 mg daily X1 week.
prochlorperazine maleate [Compazine] 10 mg tablet
10 mg PO Q8H PRN (Reason: nausea and vomiting) Qty: 10 0RF
Continued
pantoprazole 40 MG tablet,delayed release (DR/EC)
40 mg PO DAILY
multivitamin with folic acid [Tab-A-Varinder] 1 TABLET tablet
1 tab PO DAILY
atorvastatin 40 mg Tablet
40 mg PO HS
Eliquis 5 mg Tablet
5 mg PO BID
metoprolol succinate 50 MG tablet extended release 24 hr
50 mg PO HS
alprazolam 1 mg tablet
1 mg PO HS
omega-3 acid ethyl esters 1 gram capsule
1 g PO BID
furosemide 40 mg tablet
40 mg PO DAILYPRN PRN (Reason: foot swelling)
cyanocobalamin (vitamin B-12) [Vitamin B-12] 1,000 mcg Tablet
1,000 mcg PO DAILY
ergocalciferol (vitamin D2) 1,250 mcg (50,000 unit) capsule
1,250 mcg PO FR
Skyrizi 360 mg/2.4 mL (150 mg/mL) wearable injector
2.4 mg SC MONTHLY
Discharge Orders:
Discharge Patient (As Directed); Ordered 08/14/23
Ordered By: Kristyn Nguyen
[2023-08-14 13:43] VITALS: BP 130/80
--- NOTE | 2023-08-14 14:33 | CM ---
CM reviewed chart and noted dc order
Bedside meeting with pt- no dc needs noted
IMM completed verbally- copy provided
Son will transport home
Discharge Disposition- home, no needs
== END 2023-08-14 14:24 | disposition home or self-care (01) | DRG 386 ==
LOC: 4 EAST ACU 09:37
PROVIDERS: Student in an Organized Health Care Education/Training Program; ADMITTING PHYSICIAN Internal Medicine; CONSULT PHYSICIAN Specialist; CONSULT PHYSICIAN Surgery; EMERGENCY PHYSICIAN Emergency Medicine; FAMILY PHYSICIAN Family Medicine
DX: K50.112 Crohn's disease of large intestine with intestinal obstruction (principal); E87.1 Hypo-osmolality and hyponatremia; Z87.891 Personal history of nicotine dependence; I48.0 Paroxysmal atrial fibrillation; Z86.73 Personal history of transient ischemic attack (TIA), and cerebral infarction without residual deficits; F32.A Depression, unspecified; F41.9 Anxiety disorder, unspecified; Z79.01 Long term (current) use of anticoagulants; K44.9 Diaphragmatic hernia without obstruction or gangrene
CPT/HCPCS: 74177; 80048; 80053; 81003; 81015; 83690; 85025; 85027; 86140; 93005; 96361; 96374; 96375; 99285; Q9967

== ENCOUNTER → 2023-09-26 14:14 | Outpatient (REF) | payer OTHER, SELFPAY ==
[2023-09-26 08:45] LABS: % Basophils 0.5 % (0-2); % Eosinophils 0.5 % (0-6); % Immature Granulocytes 0.3 % (0-0.5); % Lymphocytes 20.4 % (20.5-51.1); % Monocytes 6.9 % (1.7-9.3); % Neutrophils 71.4 % (42.2-75.2); Absolute Lymphocytes 0.8 10^3/uL (1.2-3.4); Absolute Monocytes 0.3 10^3/uL (0.1-0.6); Absolute Neutrophils 2.8 10^3/uL (1.4-6.5); Hematocrit 34.7 % (37.0-47.0); Hemoglobin 10.8 g/dL (12.0-16.0); Mean Corp Hgb Conc. 31.1 g/dL (33.0-37.0); Mean Corpuscular Hgb 28.7 pg (27.0-31.0); Mean Corpuscular Volume 92.3 fL (81.0-99.0); Mean Platelet Volume 10.5 fL (7.4-10.4); Platelet Count 265 10^3/uL (130-400); Red Blood Cell Count 3.76 10^6/uL (4.20-5.40); Red Cell Dist. Width 14.6 % (11.5-14.5); White Blood Cell Count 3.9 10^3/uL (4.8-10.8)
== END ==
LOC: OIDL 14:14
PROVIDERS: ATTENDING PHYSICIAN Internal Medicine Hematology & Oncology
DX: D50.0 Iron deficiency anemia secondary to blood loss (chronic) (principal)
CPT/HCPCS: 85025

== ENCOUNTER → 2023-09-30 13:47 | Outpatient (REF) | payer OTHER, SELFPAY ==
[2023-09-30 09:35] LABS: % Basophils 0.6 % (0-2); % Eosinophils 0.8 % (0-6); % Immature Granulocytes 0.3 % (0-0.5); % Lymphocytes 23.3 % (20.5-51.1); % Monocytes 7.3 % (1.7-9.3); % Neutrophils 67.7 % (42.2-75.2); Absolute Lymphocytes 0.8 10^3/uL (1.2-3.4); Absolute Monocytes 0.3 10^3/uL (0.1-0.6); Absolute Neutrophils 2.4 10^3/uL (1.4-6.5); Hematocrit 32.3 % (37.0-47.0); Hemoglobin 10.3 g/dL (12.0-16.0); Mean Corp Hgb Conc. 31.9 g/dL (33.0-37.0); Mean Corpuscular Hgb 29.3 pg (27.0-31.0); Mean Platelet Volume 11.5 fL (7.4-10.4); Nucleated Red Blood Cells % 0 %; Platelet Count 261 10^3/uL (130-400); Red Blood Cell Count 3.51 10^6/uL (4.20-5.40); Red Cell Dist. Width 14.9 % (11.5-14.5); White Blood Cell Count 3.6 10^3/uL (4.8-10.8)
== END ==
LOC: OIDL 13:47
PROVIDERS: ATTENDING PHYSICIAN Internal Medicine Hematology & Oncology
DX: D50.0 Iron deficiency anemia secondary to blood loss (chronic) (principal)
CPT/HCPCS: 85025

== ENCOUNTER → 2023-10-10 08:44 | Outpatient (REF) | payer OTHER, SELFPAY ==
[2023-10-10 08:57] LABS: % Basophils 0.7 % (0-2); % Immature Granulocytes 0.2 % (0-0.5); % Lymphocytes 23.7 % (20.5-51.1); % Neutrophils 68.4 % (42.2-75.2); Absolute Monocytes 0.2 10^3/uL (0.1-0.6); Absolute Neutrophils 2.7 10^3/uL (1.4-6.5); Hematocrit 36.6 % (37.0-47.0); Hemoglobin 11.4 g/dL (12.0-16.0); Mean Corp Hgb Conc. 31.1 g/dL (33.0-37.0); Mean Corpuscular Hgb 29.5 pg (27.0-31.0); Mean Corpuscular Volume 94.8 fL (81.0-99.0); Mean Platelet Volume 11.3 fL (7.4-10.4); Platelet Count 194 10^3/uL (130-400); Red Blood Cell Count 3.86 10^6/uL (4.20-5.40); Red Cell Dist. Width 15.4 % (11.5-14.5)
== END ==
LOC: OIDL 08:44
PROVIDERS: ATTENDING PHYSICIAN Internal Medicine Hematology & Oncology
DX: D50.0 Iron deficiency anemia secondary to blood loss (chronic) (principal)
CPT/HCPCS: 85025

== ENCOUNTER → 2023-10-18 13:26 | Outpatient (REF) | payer OTHER, SELFPAY ==
[2023-10-18 09:21] LABS: % Basophils 0.6 % (0-2); % Eosinophils 1.4 % (0-6); % Immature Granulocytes 0.3 % (0-0.5); % Lymphocytes 23.2 % (20.5-51.1); % Monocytes 6.7 % (1.7-9.3); % Neutrophils 67.8 % (42.2-75.2); Absolute Eosinophils 0.1 10^3/uL (0-0.7); Absolute Lymphocytes 0.8 10^3/uL (1.2-3.4); Absolute Monocytes 0.2 10^3/uL (0.1-0.6); Absolute Neutrophils 2.4 10^3/uL (1.4-6.5); Hematocrit 37.8 % (37.0-47.0); Hemoglobin 11.8 g/dL (12.0-16.0); Mean Corp Hgb Conc. 31.2 g/dL (33.0-37.0); Mean Corpuscular Hgb 29.3 pg (27.0-31.0); Mean Corpuscular Volume 93.8 fL (81.0-99.0); Mean Platelet Volume 11.8 fL (7.4-10.4); Nucleated Red Blood Cells % 0 %; Platelet Count 170 10^3/uL (130-400); Red Blood Cell Count 4.03 10^6/uL (4.20-5.40); Red Cell Dist. Width 14.9 % (11.5-14.5); White Blood Cell Count 3.6 10^3/uL (4.8-10.8)
== END ==
LOC: OIDL 13:26
PROVIDERS: ATTENDING PHYSICIAN Internal Medicine Hematology & Oncology
DX: D50.0 Iron deficiency anemia secondary to blood loss (chronic) (principal)
CPT/HCPCS: 85025

== ENCOUNTER 2024-02-22 16:51 | Emergency (ER) | payer OTHER, SELFPAY ==
[2024-02-22 16:55] VITALS: BP 130/82
--- NOTE | 2024-02-22 18:24 | ED.MUSCINJ ---
HPI-Injury
General
Chief Complaint: Extremity Pain (non-traumatic)
Source: patient
Exam Limitations: none
Time Seen by Provider: 02/22/24 18:12
History of Present Illness-Injury
Initial Injury comments:
83-year-old female presents with 2 weeks worth of progressively worsening right knee pain. The pain is along the medial aspect of the knee and is giving her trouble bearing weight. No known injury. She takes Eliquis. She uses a walker typically
but has been able to walk secondary to the pain. No other complaints at this time. No fever
Past History
Past History
ED Past Medical History: Arrthythmia, CVA and Other (Crohn's disease)
ED Past Surgical History: Orthopedic and Other (Nose, left hip replacement left breast surgery)
Social History
Tobacco: Non-smoker
Alcohol: None
Drug: None
Personal:
Living: with family
Employment: Retired
Family History
Family History: Other (Noncontributory)
Phy Exam
Physical Exam
Physical Exam:
General: Well-appearing female in no acute respiratory distress
HEENT: Normocephalic musculoskeletal exam:
Right knee without obvious effusion. There is tenderness along the medial aspect of the knee she has flexion to 90 degrees and is able to fully extend the knee. Posterior joint line is nontender
Extremities: No cyanosis or edema
Vascular: 2+ dorsalis pedis pulse bilateral feet
Injury Course
Orders/Labs/Results
Orders:
Orders
02/22/24 18:24
CR Knee- Right 4 Or More View* Urgent
Comment:
Reason For Exam: knee pain
02/22/24 19:44
Acetaminophen [Tylenol] 1,000 mg PO NOW STA
02/22/24 19:58
Oxycodone [Roxicodone] 5 mg PO NOW STA
MDM/Problems Addressed
Differential Diagnosis Includes:
X-rays of the right knee will be ordered to evaluate source of pain consider degenerative change versus fracture which is unlikely given no injury. Do not suspect septic arthritis with lack of fever or skin change
*Critical Care Note
Total Time (30-74mins, 75-104mins- exclusive of procedures): Not Applicable
Update Note
Update Note:
X-ray of the knee demonstrates arthritis in the knee with a moderate effusion. Clinically no signs of septic arthritis. Patient is on Eliquis and cannot tolerate or should not take NSAIDs. She refused Tylenol as it does not help. Offered her
knee immobilizer which states was too limiting. We applied an Lamont bandage and will prescribe a short supply of pain medicine and refer her to orthopedics.
ED Attending Note
-
Portions of this chart may have been created with voice recognition software.� Occasional wrong word or��sound alike� substitutions may have occurred due to the inherent limitations of voice recognition software.
Discharge Plan
Departure
Patient Disposition: Home (Routine Discharge)
Date of Disposition: 02/22/24
Time of Disposition: 20:36
Patient with high blood pressure during this ER visit?: No
Discharge Problem:
DJD (degenerative joint disease)
Instructions: Muscle and Bone Pain (DC)
Prescriptions:
New
oxycodone 5 mg tablet
5 mg PO Q8H PRN (Reason: Pain) Qty: 10 0RF
No Action
pantoprazole 40 MG tablet,delayed release (DR/EC)
40 mg PO DAILY
multivitamin with folic acid [Tab-A-Varinder] 1 TABLET tablet
1 tab PO DAILY
atorvastatin 40 mg Tablet
40 mg PO HS
Eliquis 5 mg Tablet
5 mg PO BID
metoprolol succinate 50 MG tablet extended release 24 hr
50 mg PO HS
alprazolam 1 mg tablet
1 mg PO HS
omega-3 acid ethyl esters 1 gram capsule
1 g PO BID
furosemide 40 mg tablet
40 mg PO DAILYPRN PRN (Reason: foot swelling)
cyanocobalamin (vitamin B-12) [Vitamin B-12] 1,000 mcg Tablet
1,000 mcg PO DAILY
ergocalciferol (vitamin D2) 1,250 mcg (50,000 unit) capsule
1,250 mcg PO FR
Skyrizi 360 mg/2.4 mL (150 mg/mL) wearable injector
2.4 mg SC MONTHLY
metronidazole 500 mg tablet
500 mg PO TID Qty: 12 0RF
levofloxacin 750 mg tablet
750 mg PO DAILY Qty: 4 0RF
prednisone 10 mg tablet
40 mg PO DAILY Qty: 74 0RF
Rx Instructions:
40 mg daily X 1 wk,30 mg daily X 1 wk, then 20 mg daily for 1 wk, 10 mg daily X 1 wk, 5 mg daily X1 week.
prochlorperazine maleate [Compazine] 10 mg tablet
10 mg PO Q8H PRN (Reason: nausea and vomiting) Qty: 10 0RF
Referrals:
Jonny Briscoe MD [Active] -
Activity Restrictions/Additional Instructions:
Use Lamont bandage for support. Take pain medicine as needed for severe pain. Follow-up with orthopedics
Interventions
Interventions:
*General Assessment Last Done: 02/22/24 16:55
*Neglect/Abuse Screening Last Done: 02/22/24 16:55
*ED COVID-19 Vaccine History Last Done: 02/22/24 16:55
ED-Musculoskeletal Assessment Last Done: 02/22/24 19:42
ED-Peripheral Vascular Assessment Last Done: 02/22/24 19:42
ED-Skin Assessment Last Done: 02/22/24 19:42
Discharge Date and Time
Print Language: ROMANIAN
[2024-02-22 19:39] VITALS: BMI 31.1
[2024-02-22 19:40] VITALS: BP 137/89
[2024-02-22] MEDS: ROXICODONE PO (20:09)
[2024-02-22] MEDS: ROXICODONE 5 MG PO (20:42)
== END 2024-02-22 20:36 | disposition home or self-care (01) ==
LOC: EMR 16:51
PROVIDERS: EMERGENCY PHYSICIAN Physician Assistant
DX: M25.561 Pain in right knee (principal); M25.461 Effusion, right knee; M17.11 Unilateral primary osteoarthritis, right knee; K50.90 Crohn's disease, unspecified, without complications; Z79.01 Long term (current) use of anticoagulants; Z96.642 Presence of left artificial hip joint; Z86.73 Personal history of transient ischemic attack (TIA), and cerebral infarction without residual deficits
CPT/HCPCS: 99283; 73564

== ENCOUNTER → 2024-04-21 07:07 | Outpatient (REF) | payer OTHER, SELFPAY | LOC: HWRCS 07:07 | PROVIDERS: ATTENDING PHYSICIAN Physician Assistant; FAMILY PHYSICIAN Family Medicine | DX: I48.0 Paroxysmal atrial fibrillation (principal); R60.0 Localized edema; Q21.12 Patent foramen ovale; R06.01 Orthopnea | CPT/HCPCS: 93306 ==

== ENCOUNTER 2024-10-08 12:59 | Inpatient (IN) | payer OTHER, SELFPAY ==
[2024-10-08] VITALS (10 sets, daily range): BP systolic 94–119; BP diastolic 51–74; BMI 28.9; BMI 29.2
[2024-10-08 08:33] LABS: % Basophils 0.3 % (0-2); % Eosinophils 1.5 % (0-6); % Immature Granulocytes 0.3 % (0-0.5); % Lymphocytes 9.1 % (20.5-51.1); % Monocytes 5.9 % (1.7-9.3); % Neutrophils 82.9 % (42.2-75.2); Absolute Eosinophils 0.1 10^3/uL (0-0.7); Absolute Lymphocytes 0.6 10^3/uL (1.2-3.4); Absolute Monocytes 0.4 10^3/uL (0.1-0.6); Absolute Neutrophils 5.6 10^3/uL (1.4-6.5); Hematocrit 37.8 % (37.0-47.0); Mean Corp Hgb Conc. 31.7 g/dL (33.0-37.0); Mean Corpuscular Hgb 28.2 pg (27.0-31.0); Mean Corpuscular Volume 88.9 fL (81.0-99.0); Mean Platelet Volume 10.2 fL (7.4-10.4); Nucleated Red Blood Cells % 0 %; Platelet Count 364 10^3/uL (130-400); Red Blood Cell Count 4.25 10^6/uL (4.20-5.40); White Blood Cell Count 6.7 10^3/uL (4.8-10.8)
[2024-10-08 08:48] LABS: ALT (SGPT) 11 U/L (0-35); AST (SGOT) 16 U/L (14-36); Albumin 2.8 g/dl (3.5-5.0); Alkaline Phosphatase 85 U/L (38-126); Blood Urea Nitrogen 20 mg/dl (7-17); Carbon Dioxide 34 mmol/L (22-30); Chloride 99 mmol/L (98-107); Estimated Creatinine Clearance 53 ml/min; Glucose 115 mg/dl (70-99); Potassium 3.9 mmol/L (3.5-5.1); Sodium 135 mmol/L (135-145); Total Bilirubin 0.5 mg/dl (0.2-1.3); Total Protein 6.6 g/dl (6.3-8.2); eGFR > 60.00
[2024-10-08 08:59] LABS: NT-proBNP 1390 pg/ml; Troponin I < 0.012 ng/ml
--- NOTE | 2024-10-08 09:37 | ED.GENMED ---
History of Present Illness
General
Chief Complaint: Swelling
Source: patient and family (son)
Time Seen by Provider: 10/08/24 08:23
History of Present Illness
History of Present Illness:
84-year-old female presents the emergency complaining of peripheral edema. Patient has been experiencing leg edema over the past 4 to 5 days. She does have a history of this for which she takes Lasix as on an as-needed basis. She has been
hospitalized before for edema. Patient has been taking her Lasix for the past 4 days without improvement. She does not feel like she is urinating the way she should with taking the Lasix. She denies any real shortness of breath but her ability to
ambulate is affected by the severe discomfort in her legs. No fever, chills, nausea or vomiting. Patient does take Eliquis.
Past History
Past History
ED Past Medical History: Arrthythmia, CVA and Other (Crohn's disease)
ED Past Surgical History: Orthopedic and Other (Nose, left hip replacement left breast surgery)
Social History
Tobacco: Non-smoker
Alcohol: None
Drug: None
Personal:
Living: with family
Employment: Retired
Family History
Family History: Other (Noncontributory)
Phy Exam
Physical Exam
Physical Exam:
General: Awake, Alert, Oriented X3. No acute distress. Appears stated age
Vitals: unremarkable
Head: Atraumatic
Eyes: Pupils equal, EOMI
Throat: Airway intact, no exudates
Neck: Trachea midline
Lungs: Decreased breath sounds right lower lung, few crackles bilaterally
Heart: Regular rate, no murmurs
Abd: Soft, Nontender, No pulsatile mass
Neuro: Nonfocal
Skin: Warm, dry, no rash
Extremities: pulses equal b/l, 3+ edema
Scores
Heart Failure Risk
Heart Failure Risk Score: Yes
History of Stroke or TIA: Yes
History of intubation for respiratory distress: No
Heart rate on ED arrival >/= 110: Yes
SaO2 <90% on arrival on room air: No
HR >/=110 during 3min walk test (or too ill to perform test): Yes
ECG has acute ischemic changes: No
Urea >/=12mmol/L (BUN 33.6mg/dL): No
Serum CO2>/=35mmol/L: No
Troponin I or T elevated to HI Level (0.4mg/dL): No
NT-proBNP >/=5,000ng/L (5,000pg/ml): No
HF Risk Score: 3
Admission Status: HIGH RISK 15.9% Consider SNF treatment or admission to hospital
Course
Orders/Labs/Results
Orders:
Orders
10/08/24 08:21
Electrocardiogram (*1) Urgent
Reason for Study: Shortness of Breath
10/08/24 08:22
Complete Blood Count/With Diff Urgent
Comprehensive Metabolic Panel Urgent
NT-proBNP Urgent
Troponin I Urgent
10/08/24 09:35
Furosemide [Lasix] 40 mg IV NOW STA
CR Chest - 2 Views Urgent
Comment:
Reason For Exam: sob, edema
10/08/24 10:52
CARDIOLOGY CONSULT Routine
Consulting Provider: Deshawn Escalante
Was physician already notified: Yes
Reason for consult: CHF Exac
10/08/24 12:42
Admit/Transfer Patient As Directed
Co-Sign Provider:
Level of Care: Inpatient admission
Assign to:: Telemetry
Physician / Group: josé miguel
Diagnosis: chf exacerbation
Reason for Telemetry: Pulmonary Edema
Date to Stop Telemetry: 10/11/24
Time to Stop Telemetry: 11:00
Reason for Hospitalization: chf exacerbation
Expected length of stay greater than two midnights?: Yes
ELOS- Estimated Length of Stay in days: 2
I certify the patient meets the requirements for IP care: Yes
PRN Pain Medication Management As Directed
May give lesser potent ordered pain med per pt: Yes
preference::
Protocol:: Medication orders for pain may be administered in a
manner that supports deferring to patient preference
when the pt is:
- Requesting an ordered lesser potent pain medication.
Least to most potent pain medications are defined
as: acetaminophen < NSAID < tramadol < opioids
(morphine, oxycodone, hydromorphone).
- Requesting a lesser dose of the same medication IF
ORDERED.
- Requesting a less intrusive route of administration
if both routes are prescribed by the provider (PO <
IV).
10/08/24 12:43
Code Status As Directed
Resuscitation Status: Full Code
10/08/24 12:46
Venous Doppler Lwr Ext Bilat [US Periph Venous LOWER Ext Mele] Urgent
Comment:
Reason For Exam: leg swelling pain
10/08/24 Dinner
Cholesterol Lowering
At Your Request: Limited Participation
Cholesterol Lowering: Sodium, 2 Gram
10/08/24 15:08
Activity As Directed
Activity Level: As Tolerated
Intake/ Output As Directed
Frequency: q12h
Vital Signs As Directed
Frequency: Other
Additional Instructions:: Q12 or per unit guidelines if more frequent.
Weight As Directed
Frequency: Daily
Type of Scale: Standing Scale
Comment: Daily morning weight. If unable to stand, use balanced bed scale.
Weight As Directed
Frequency: Once
Type of Scale: Standing Scale
Comment: Upon Admission. If unable to stand, use balanced bed scale.
Pulse Ox/cont/shift [RESP] Routine
Quantity: 1
Special Instructions: Daily pulse oximetry at rest. If greater than 92% at rest also obtain pulse oximetry
while ambulating as tolerated.
DX Deep Vein Thrombosis Video Routine
10/08/24 20:00
Apixaban [Eliquis] 5 mg PO BID
Heparin 5,000 units SC Q12
omega-3 acid ethyl esters 2 grams PO BID
10/08/24 22:00
Alprazolam [Xanax] 1 mg PO HS
Metoprolol Xl [Toprol Xl] 50 mg PO HS
10/09/24 06:00
Basic Metabolic Panel IN AM
Complete Blood Count/No Diff IN AM
10/09/24 08:00
Atorvastatin [Lipitor] 40 mg PO DAILY
Cyanocobalamin [Vitamin B-12] 1,000 mcg PO DAILY
Ergocalciferol [Drisdol (Vitamin D2)] 50,000 units PO FR
Furosemide [Lasix] 40 mg IV DAILY
Multivitamin [Theragran] 1 tablet PO DAILY
Pantoprazole [Protonix] 40 mg PO DAILY
10/10/24 06:00
Basic Metabolic Panel IN AM
10/11/24 06:00
Basic Metabolic Panel IN AM
10/11/24 11:00
DC Protocol for Telemetry ONCE
Abnormal Lab Results
10/08/24
08:22
MCHC 31.7 L g/dL
(33.0-37.0)
RDW 15.0 H %
(11.5-14.5)
Absolute Lymphs (auto) 0.6 L 10^3/uL
(1.2-3.4)
Neutrophils % 82.9 H %
(42.2-75.2)
Lymphocytes % 9.1 L %
(20.5-51.1)
Carbon Dioxide 34 H mmol/L
(22-30)
BUN 20 H mg/dl
(7-17)
Glucose 115 H mg/dl
(70-99)
Albumin 2.8 L g/dl
(3.5-5.0)
10/08/24 08:22
10/08/24 08:22
Vital Signs
Initial and Last Documented VS:
Initial Vital Signs
Temp Pulse Resp BP Pulse Ox
98.8 F 114 20 116/74 93
10/08/24 08:04 10/08/24 08:04 10/08/24 08:04 10/08/24 08:04 10/08/24 08:04
Last Documented Vital Signs
Temp Pulse Resp BP Pulse Ox
98.8 F 115 37 94/63 92
10/08/24 08:04 10/08/24 14:30 10/08/24 14:30 10/08/24 14:27 10/08/24 13:30
MDM/Problems Addressed
Differential Diagnosis Includes:
Venous stasis, congestive heart failure, peripheral edema
MDM/Problems Addressed:
Patient presents with significant lower extremity edema. She appears to be fluid overloaded. Her white count, hemoglobin and platelet count are normal. Renal function is unremarkable. Chest x-ray does not show pulmonary edema. Given the extent
of her fluid retention I believe the patient will require hospitalization for IV diuresis. I discussed the patient's presentation with Dr. Barrett. Based upon office records her weight appears to be up by about 10 pounds.
*Radiology
Radiology exam reviewed: preliminary read by ED provider (No pulmonary edema or other acute pulmonary finding noted on my review of the x-ray. Patient does have a hiatal hernia.)
*Pulse Oximetry
Patient hypoxic: no
*EKG
Interpretation: abnormal
Heart Rate: 114
Rate: tachycardiac
Rhythm: sinus tachycardia
[place]: normal axis
Interval: normal interval
QRS Pattern: normal QRS
Ischemia: non-specific ST changes
*Surgical Services Manager Interpretation
Rate: tachycardiac
Interpretation: abnormal
Heart Rate: 114
Rhythm: sinus tachycardia
*Critical Care Note
Total Time (30-74mins, 75-104mins- exclusive of procedures): Not Applicable
Data Reviewed
Review of Other/Old Records Reveals: Testing (previous echo 04/21/24...LVH, EF 55-60)
ED Attending Note
-
Portions of this chart may have been created with voice recognition software.� Occasional wrong word or��sound alike� substitutions may have occurred due to the inherent limitations of voice recognition software.
Discharge Plan
Departure
Patient Disposition: Admit
Date of Disposition: 10/08/24
Time of Disposition: 10:34
Admit to: Med/Surg
Presentation/result/management discussed w/ accepting MD/DO: Hospitalist
Condition: Fair
Discharge Problem:
CHF (congestive heart failure)
Interventions
Interventions:
*Risk Screen - Suicide Last Done: 10/08/24 08:04
*General Assessment Last Done: 10/08/24 08:04
*Neglect/Abuse Screening Last Done: 10/08/24 08:59
*ED- Fall Risk Assessment Last Done: 10/08/24 15:12
*ED COVID-19 Vaccine History Last Done: 10/08/24 08:15
*Nursing Disposition Last Done: 10/08/24 15:12
ED- Cardiac Assessment Last Done: 10/08/24 08:53
ED- Pulmonary Assessment Last Done: 10/08/24 08:53
ED-Skin Assessment Last Done: 10/08/24 08:53
Discharge Date and Time
Discharge Date/Time: 10/08/24 15:00
[2024-10-08] MEDS: LASIX 40 MG IV ×2 (10:29→17:39)
--- NOTE | 2024-10-08 12:45 | HPS.HSE ---
Family Physician
-
Family Physician: Maris Hernandez, DO
Chief Complaint
-
leg swelling
History of Present Illness
84-year-old female past medical history of paroxysmal atrial fibrillation on Eliquis, Crohn's disease, normocytic anemia, diverticulosis, breast cancer, skin cancer, hyperlipidemia, GERD, presenting with lower extremity edema for the past 4 to 5
days. She does not feel she is urinating adequately. She denies shortness of breath. Denies chest pain. She is having decreased ambulation due to discomfort in her legs. No fevers or chills or nausea or vomiting. No weight gain. She has been
taking Lasix 40 mg intermittently for the past few days.
She does not smoke or drink alcohol.
Medical History
Past Medical History
Past Medical History: Reports Other (paroxysmal atrial fibrillation on Eliquis, Crohn's disease, normocytic anemia, diverticulosis, breast cancer, skin cancer, hyperlipidemia, GERD)
Past Surgical History: Reports Other (Orthopedic and Other (Nose, left hip replacement left breast surgery))
Social History
Tobacco: Non-smoker
Alcohol: None
Drug: None
Family History
Family History: Not pertinent
Allergies / Home Medications
Allergies reflects when Allergies were last updated in Answer.To.
Home Medications with original date entered in Answer.To
Allergy/Medication List:
Allergies
Allergy/AdvReac Type Severity Reaction Status Date / Time
No Known Allergies Allergy Verified 10/08/24 08:07
Home Medications
multivitamin with folic acid 400 mcg tablet (Tab-A-Varinder) 1 tab PO DAILY Supplement 03/13/20
pantoprazole 40 mg tablet,delayed release 40 mg PO DAILY Gastrointestinal issue 03/13/20
alprazolam 1 mg tablet 1 mg PO HS Mental Health/Anxiety 09/05/22
apixaban 5 mg tablet (Eliquis) 5 mg PO BID Blood clot prevention/tx 09/05/22
atorvastatin 40 mg tablet 40 mg PO DAILY High cholesterol 09/05/22
metoprolol succinate 50 mg tablet,extended release 24 hr 50 mg PO HS Blood pressure 09/05/22
omega-3 acid ethyl esters 1 gram capsule 2 g PO BID Supplement 09/05/22
cyanocobalamin (vitamin B-12) 1,000 mcg tablet (Vitamin B-12) 1,000 mcg PO DAILY Supplement 08/12/23
ergocalciferol (vitamin D2) 1,250 mcg (50,000 unit) capsule 1,250 mcg PO FR Supplement 08/12/23
furosemide 40 mg tablet 40 mg PO DAILYPRN PRN foot swelling 08/12/23
risankizumab-rzaa 360 mg/2.4 mL (150 mg/mL) subcut wearable injector (Skyrizi) 360 mg SC Q6W Crohn's disease 08/12/23
denosumab 60 mg/mL subcutaneous syringe (Prolia) 60 mg SC [id number] 10/08/24
Review of Systems
-
History Source: Patient
A 12 point ROS was completed and negative except as noted: Yes
Constitutional: Reports No Symptoms
EENT: Reports No Symptoms
Respiratory: Reports See HPI
Cardiac: Reports See HPI
Abdomen/GI: Reports No Symptoms
: Reports No Symptoms
Musculoskeletal: Reports No Symptoms
Skin: Reports No Symptoms
Neurological: Reports No Symptoms
Endocrine: Reports No Symptoms
Hematologic/Lymphatic: Reports No Symptoms
Psych: Reports No Symptoms
Physical Exam
Vital Signs
Vital Signs
Temp Pulse Resp BP Pulse Ox
98.8 F 106 20 103/69 97
10/08/24 08:04 10/08/24 10:29 10/08/24 08:30 10/08/24 10:29 10/08/24 08:53
Physical Exam
General: Well Developed, Well Nourished and No Apparent Distress
HEENT: NormoCephalic, Moist mucous membranes and Atraumatic
Respiratory: Clear
Cardiac: S1/S2, Regular Rhythm and Peripheral Edema; No Murmur or Rub
GI: Soft, Non Tender, Non Distended and Normal Bowel Sounds; No Organomegaly
Rectal: Deferred by Provider
Musculoskeletal: No Clubbing, No Cyanosis and No Edema
Skin: No Rash
Neuro: Nonfocal/grossly intact
Laboratory Results
-
10/08/24 08:22
10/08/24 08:22
Laboratory Results
Total Bilirubin 0.5 mg/dl (0.2-1.3) 10/08/24 08:22
AST 16 U/L (14-36) 10/08/24 08:22
ALT 11 U/L (0-35) 10/08/24 08:22
Alkaline Phosphatase 85 U/L (38-126) 10/08/24 08:22
Troponin I < 0.012 ng/ml 10/08/24 08:22
Data Reviewed
-
Lab Data: Labs Reviewed by me
Old Records: Reviewed
Impression/Plan
-
IMPRESSION:
PLAN:
# Bilateral lower extremity wound secondary to acute CHF exacerbation
-EKG shows sinus tachycardia with PACs
- Check I's and O's, daily weights
- Chest x-ray shows large hiatal hernia seen previously, left basilar atelectasis,
- Cardiac BNP 1400
-Recent echo in March showed LVH, EF 55 to 60%
- 40 IV Lasix daily
-Check venous ultrasound to rule out DVT
- Cardiology consulted
Paroxysmal atrial fibrillation
- Continue Eliquis
- Continue metoprolol
Crohn's disease
- On Skyrizi
Normocytic anemia
- Hemoglobin stable
History of diverticulosis
Breast cancer
Skin cancer
Hyperlipidemia
- Continue statin
GERD
- Continue Protonix
Hiatal hernia
Anxiety
- Continue alprazolam
Full code
DVT prophylaxis�heparin
Cardiac diet
--- NOTE | 2024-10-08 14:02 | CON.CAR ---
Addendum entered and electronically signed by Emily Tirado DO 10/08/24 18:29:
I saw and examined the patient.
The [facility] note was reviewed and I agree with the note.
Comment: Patient was seen and examined with daughter at bedside; son was present over the phone to provide additional information. Madina is a 84-year-old female who presented to [facility] ED directly from the airport after she arrived
following a 12-hour flight from [place] reporting worsening lower extremity edema over the preceding week. Patient had been in [place] with family and admits to consuming salt rich foods. Patient does have chronic lower extremity edema which
markedly increased bilaterally over the last week. She does not take diuretics on a regular basis but does use Lasix as needed. She started Lasix 40 mg once daily 4 days ago with no significant improvement. She does also report bilateral leg
pain; no falls or injuries. She denies chest pain or pressure. She denies shortness of breath, dizziness syncope or near syncope. She has had no GI or respiratory illnesses. She denies interruption of Eliquis anticoagulation. A lower extremity
Doppler showed no evidence of right lower extremity DVT however she did not allow her left lower extremity to be imaged. Chest x-ray showed a large hiatal hernia with atelectasis with lungs otherwise clear. Twelve-lead EKG was sinus tachycardia
with PACs; telemetry also sinus tachycardia with PACs. Pertinent lab work: BUN and creatinine 20/0.7. Sodium 135, potassium 3.9, LFTs within normal limits. Cardiac troponin less than 0.012. proBNP 1390. Hemoglobin 12. WBC 6.7, platelets
364,000. She received Lasix 40 mg IV in the ER at 930 and received another 40 mg IV dose at 1643.
General: Awake alert and oriented x 3 with no acute respiratory distress on room air
Heart: Regular, Tachycardic, positive S1/S2, 2/6 SM
Lungs: Bronchovesicular breath sounds decreased on the left but clear
Abd: Obese, mildly distended. Positive bowel sound
Ext: +++ edema from feet to thighs bilaterally with mild pretibial erythema and calf pain left greater than right
Plan:
Acute heart failure with preserved ejection fraction with significant bilateral lower extremity edema following prolonged international flight from [place] in addition to dietary salt indiscretion
-Lower extremity Doppler negative for right lower extremity DVT however she declined having left leg imaged. Although she is on Eliquis which she states was uninterrupted preceding this admission given recent prolonged international flight and calf
pain we will check a D-dimer.If D-dimer is positive, we will proceed with CTA of the chest and encourage imaging of left lower extremity
-Continue Eliquis anticoagulation
-No chest pain suggestive of angina with undetectable troponin
-IV Lasix 40 mg twice daily
-I/O, daily weights. Will discuss with nursing placement of a purewick catheter given limited mobility
-Will add B/L LE tubigrips in AM if patient can tolerate.
-Repeat echocardiogram; EF was 55% by last echo 04/21/24
-Optimize goal-directed medical therapy as able
History of paroxysmal atrial fibrillation currently sinus tachycardia with PACs
-Outpatient dose of Toprol XL 50 mg HS has been continued.
-Continue Eliquis anticoagulation
-Check TSH
Original Note:
Consultation
Consultation Request
Date/Time Consultation Requested: 10/08/24
Date/Time Consultation Performed: 10/08/24
Requesting Provider: Dr. Lagunas
Performing Provider: Dr. Tirado
Reason for Consultation: Acute HF
Medical History
-
History of Present Illness:
Patient comes to the ER today with increased LE edema and is being admitted with acute HF and cardiology has been consulted. Patient reports at least 2 weeks of increased LE edema. Patient takes Lasix 40 mg daily PRN weight gain or edema and took
Lasix at home for 5 days in a row without improvement in edema. Patient denies orthopnea, but has LANE. No chest pain. Patient has a h/o orthopnea and edema, but says this is the worst edema she has had. No recent changes.
PMH:
Paroxysmal Afib
Chronic Eliquis OAC
h/o CVA by MRI in [place] 2021
Hyperlipidemia
Crohn's disease
Anemia
Past Medical History
Past Medical History: Other (in HPI)
Past Surgical History: Gynecological (lumpectomy) and Orthopedic
Social History
Tobacco: Former Smoker
Alcohol: None
Drug: None
Living: With Family
Family History
Family History: Cancer
Allergies / Home Medications
Allergy/AdvReac Type Severity Reaction Status Date / Time
No Known Allergies Allergy Verified 10/08/24 08:07
�Medication �Instructions �Recorded �Confirmed �Type
multivitamin with folic acid 400 1 tab PO DAILY Supplement 03/13/20 10/08/24 History
mcg tablet (Tab-A-Varinder)
pantoprazole 40 mg tablet,delayed 40 mg PO DAILY Gastrointestinal 03/13/20 10/08/24 History
release issue
alprazolam 1 mg tablet 1 mg PO HS Mental Health/Anxiety 09/05/22 10/08/24 History
apixaban 5 mg tablet (Eliquis) 5 mg PO BID Blood clot 09/05/22 10/08/24 History
prevention/tx
atorvastatin 40 mg tablet 40 mg PO DAILY High cholesterol 09/05/22 10/08/24 History
metoprolol succinate 50 mg 50 mg PO HS Blood pressure 09/05/22 10/08/24 History
tablet,extended release 24 hr
omega-3 acid ethyl esters 1 gram 2 g PO BID Supplement 09/05/22 10/08/24 History
capsule
cyanocobalamin (vitamin B-12) 1,000 mcg PO DAILY Supplement 08/12/23 10/08/24 History
1,000 mcg tablet (Vitamin B-12)
ergocalciferol (vitamin D2) 1,250 1,250 mcg PO FR Supplement 08/12/23 10/08/24 History
mcg (50,000 unit) capsule
furosemide 40 mg tablet 40 mg PO DAILYPRN PRN foot swelling 08/12/23 10/08/24 History
risankizumab-rzaa 360 mg/2.4 mL 360 mg SC Q6W Crohn's disease 08/12/23 10/08/24 History
(150 mg/mL) subcut wearable
injector (Skyrizi)
denosumab 60 mg/mL subcutaneous 60 mg SC [id number] 10/08/24 10/08/24 History
syringe (Prolia)
Review of Systems
-
History Source: Patient and Family (son sitting bedside and helping with HPI)
All other systems: Negative unless noted
Physical Exam
Vital Signs
Temp Pulse Resp BP Pulse Ox
98.8 F 108 23 106/69 79
10/08/24 08:04 10/08/24 12:15 10/08/24 12:15 10/08/24 12:00 10/08/24 11:32
GEN: NAD. AAOx3
HEENT: EOMI, MMM
LUNGS: RA. CTA B/L, no wheeze
CV: Sinus tachycardia on tele. Reg, S1/S2, no murmur
ABD: soft, BS+, NT, ND
EXT: +3 B/L LE edema, tender to touch, erythema
NEURO: Gross non-focal
SKIN: No rash
Lab Results
10/08/24 08:22
10/08/24 08:22
Troponin I < 0.012 ng/ml 10/08/24 08:22
Kak-M-Onzqlumceiq Pept 1390 pg/ml 10/08/24 08:22
Impression / Plan
-
PCP: Dr. Johan Cunningham
Card: Dr. Erica Barrett
Impression:
Admitted with acute HF 10/08/24
Acute HFpEF
B/L LE edema
Paroxysmal Afib
Chronic Eliquis OAC
h/o CVA by MRI in [place] 2021
Hyperlipidemia
Crohn's disease
Anemia
Echo 04/21/24: EF 55-60%, mild MR, thickened aortic valve leaflets with normal excursion
Plan:
-Patient comes to the ER today with increased LE edema and is being admitted with acute HF and cardiology has been consulted. Patient reports at least 2 weeks of increased LE edema. Patient takes Lasix 40 mg daily PRN weight gain or edema and took
Lasix at home for 5 days in a row without improvement in edema. Patient denies orthopnea, but has LANE. No chest pain. Patient has a h/o orthopnea and edema, but says this is the worst edema she has had. No recent changes.
-ECG looks like sinus tachycardia, but patient has a h/o paroxysmal Afib. Will review with cardiology attending, might also be Atach.
-Patient with increased LE edema, weight gain and pro-BNP 1390 which is her highest level ever. Will manage as acute HFpEF.
-Increase Lasix to 40 mg IV BID.
-Will add B/L LE tubigrips in AM if patient can tolerate.
-Check echo, EF was 55% by last echo 04/21/24.
-Outpatient dose of Toprol XL 50 mg HS has been continued.
-Will try adding losartan 25 mg daily in AM, follow BP due to intermittent hypotension.
-Consider adding spironolactone pending labs and BP.
-Will not add SGLT-2 inhibitor with h/o Crohn's disease and intermittent diarrhea.
-Troponin undetectable and no chest pain.
--- NOTE | 2024-10-08 15:15 | PTCARENOTE ---
Received pt from the ED at this time, pt AAOx3, tenderness of bilateral legs with edema, weak pedal pulses, Sinus Tach (low 100s) on telemetry. Oriented pt and daughter to , call bautista, using collection container for urinary output with IV Lasix,
fall risk, pressure ulcer prevention etc- both verbalized understanding, call bautista within reach.
[2024-10-08] MEDS: FLUSH (NSS) 2 FLUSH IV (17:39)
[2024-10-08 18:35] LABS: D-Dimer 0.72 ug/mlFEU (0.00-0.50)
[2024-10-08] MEDS: ELIQUIS 5 MG PO (21:16)
[2024-10-08] MEDS: XANAX 1 MG PO (21:26)
[2024-10-08] MEDS: TOPROL XL 25 MG PO (21:46)
[2024-10-09] VITALS (7 sets, daily range): BP systolic 91–114; BP diastolic 57–74; PULSE 121–122; O2SAT 93–94; BMI 27.7
--- NOTE | 2024-10-09 06:31 | W.PN.UPDATE ---
Update Note
Progress Note Update
2100 pt due for 50mg metoprolol po. BP on soft side but also tachy 100-teens. Will try 1/2 dose tonight to avoid hypotension.
[2024-10-09 07:55] LABS: TSH Reflex To Free T4 2.86 uIU/ml (0.47-4.68)
--- NOTE | 2024-10-09 08:41 | W.PN.CARDCBS ---
Addendum entered and electronically signed by Emily Tirado DO 10/09/24 10:40:
I saw and examined the patient.
The Supervisory Historian's note was reviewed and I agree with the note.
Comment: Patient was seen and examined with multiple family members at bedside including a grandson who just completed medical school. Overall she had an uneventful night and is still complaining leg pain. No chest pain or shortness of breath.
She denies tachycardia.
General: Awake alert and oriented x 3 with no acute respiratory distress on room air
Heart: Regular, Tachycardic, positive S1/S2, 2/6 SM
Lungs: Bronchovesicular breath sounds decreased on the left but clear
Abd: Obese, mildly distended. Positive bowel sound
Ext: ++ edema, improved
Plan:
Acute heart failure with preserved ejection fraction with significant bilateral lower extremity edema following prolonged international flight from [place] in addition to dietary salt indiscretion
-Initial proBNP 1390
-Lower extremity Doppler negative for right lower extremity DVT however she declined having left leg imaged.
- D-dimer mildly increased at 0.72. Family stated today that they believe she has missed some Eliquis dosing in the preceding weeks. I discussed with patient and family reattempting left lower extremity duplex however she has declined. Given
recent prolonged flight and questionable compliance of Eliquis with presentation will check CTA, PE study
-Continue Eliquis anticoagulation for now at 5 mg twice daily
-No chest pain suggestive of angina with undetectable troponin
-She is still volume overloaded however volume status is starting to improve�continue IV Lasix 40 mg twice daily
-I/O, daily weights.
-Keep K greater than 4, mag greater than 2. Agree with magnesium supplementation.
-Repeat echocardiogram today completed and will be reviewed; EF was 55% by last echo 04/21/24
-Optimize goal-directed medical therapy as able
History of paroxysmal atrial fibrillation currently sinus tachycardia with PACs
-Outpatient dose of Toprol XL 50 mg nightly; titration will be limited by lower blood pressure trends
-Continue Eliquis anticoagulation
-TSH 2.86
Borderline blood pressures which appear to be chronic and asymptomatic
-Monitor blood pressure trends closely.
PT/OT
Will follow with you
Hyperglycemia with hemoglobin A1c 5%
Original Note:
Today's Communication / Plan
-
Continue IV lasix 40mg BID
CT chest PE study
Follow HR on current dose of Toprol
Impression / Plan
-
PCP: Dr. Johan Cunningham
Card: Dr. Erica Barrett
Impression:
Admitted with acute HF 10/08/24
Acute HFpEF
B/L LE edema
Paroxysmal Afib
Chronic Eliquis OAC
h/o CVA by MRI in [place] 2021
Hyperlipidemia
Crohn's disease
Anemia
Echo 04/21/2024: EF 55-60%, mild MR, thickened aortic valve leaflets with normal excursion
Echo 10/09/2024: Study pending
Plan:
-Presented with increased LE edema. Admitted with acute HF exacerbation.
-Diuresing with IV lasix 40mg BID.
-Weight down 8lbs overnight if accurate, down to 151 lbs on 10/09.
-Creat stable at 0.7. Continue daily weights, I&Os.
-Prior echo from 03/2024 noted preserved EF with mild MR as noted above. Will repeat today.
-Continue Toprol 50mg daily. BP remains on lower side, so holding off on INGRID/ARB/aldosterone antagonist.
-No SGLT2 inhibitor due to h/o Crohn's disease and intermittent diarrhea
-Troponin undetectable. No chest pain.
-She has h/o paroxysmal atrial fibrillation. Sinus tach on tele w/ PACs.
-HR remains somewhat elevated on current dose of Toprol. Uptitration limited by hypotension.
-Continue Eliquis for anticoagulation
-TSH 2.86. K 3.8 w/ mag 1.6. Agree w/ repletion.
-LE US negative for DVT of RLE, however patient declined L sided imaging. D-dimer elevated slightly at 0.72. Will check CT PE study given recent prolonged flight and question of compliance w/ Eliquis.
HPI: Patient comes to the ER today with increased LE edema and is being admitted with acute HF and cardiology has been consulted. Patient reports at least 2 weeks of increased LE edema. Patient takes Lasix 40 mg daily PRN weight gain or edema and
took Lasix at home for 5 days in a row without improvement in edema. Patient denies orthopnea, but has LANE. No chest pain. Patient has a h/o orthopnea and edema, but says this is the worst edema she has had. No recent changes.
Progress Note - Wet [employer]isher [employer]
Subjective
Date of Service: October 09, 2024
Objective
Labs:
10/09/24 07:46
Labs
Hgb 12.0 g/dL (12.0-16.0) 10/08/24 08:22
Hct 37.8 % (37.0-47.0) 10/08/24 08:22
Plt Count 364 10^3/uL (130-400) 10/08/24 08:22
Sodium Cancelled 10/09/24 07:46
Potassium Cancelled 10/09/24 07:46
BUN Cancelled 10/09/24 07:46
Creatinine Cancelled 10/09/24 07:46
Glucose Cancelled 10/09/24 07:46
Troponins
10/08/24
08:22
Troponin I < 0.012
Vital Signs and I&O:
Vital Signs
Temp Pulse Resp BP Pulse Ox
97.5 F 100 20 91/58 92
10/09/24 07:55 10/09/24 07:55 10/09/24 07:55 10/09/24 07:55 10/09/24 07:55
Vital Signs
Temp Pulse Resp BP Pulse Ox
97.5 F 100 20 91/58 92
10/09/24 07:55 10/09/24 07:55 10/09/24 07:55 10/09/24 07:55 10/09/24 07:55
Intake & Output
10/07/24 10/08/24 10/09/24 10/10/24
06:59 06:59 06:59 06:59
Output Total 400 / 400 455 / 455
Balance -400 / -400 -455 / -455
--- NOTE | 2024-10-09 08:54 | W.PN.HOSP.TC ---
Today's Communication/Plan
-
IV Lasix
Low SBP ( seems chronic)
Mg Oxide
KCl
Assessment / Plan
Assessment / Plan
Physical Exam
General: No Apparent Distress
HEENT: NormoCephalic, Moist mucous membranes and Atraumatic
Respiratory: Limited, no wheezes
Cardiac: S1/S2
GI: Soft, Non Tender, Non Distended and Normal Bowel Sounds; No Organomegaly
Rectal: No bleeding
Musculoskeletal: b/l ++ Edema
Neuro: Nonfocal/grossly intact
Psych: calm
A/P:
# Acute heart failure with preserved ejection fraction with significant bilateral lower extremity edema following prolonged international flight in addition to dietary salt indiscretion
-EKG shows sinus tachycardia with PACs
- Check I's and O's, daily weights
- Chest x-ray shows large hiatal hernia seen previously, left basilar atelectasis,
- Cardiac BNP 1400
-Recent echo in March showed LVH, EF 55 to 60%
- 40 IV Lasix daily to BID
Add Oral KCl
- Cardiology consulted, input appreciated
# hypomagnesemia
Replace
# Hypotension
From reviewing prior admissions. SBP runs low
Paroxysmal atrial fibrillation
- Continue Eliquis
- Continue metoprolol
Crohn's disease
- On Skyrizi
Normocytic anemia
- Hemoglobin stable
History of diverticulosis
Breast cancer
Skin cancer
Hyperlipidemia
- Continue statin
GERD
- Continue Protonix
Hiatal hernia
Anxiety
- Continue alprazolam
Full code
DVT prophylaxis�Eliquis
Cardiac diet
Total time spent to see the patient, examine the patient, review data and lab results, discuss treatment plan with patient, nursing staff around 55 minutes
Anticipated Discharge: > 48 hours
Subjective/Interval History
-
Date of Service: October 09, 2024
Feels better
Less sob
No chest pain
Objective Data
-
Labs:
Laboratory Results
10/09/24 10/09/24 10/09/24
06:32 06:32 06:32
WBC Pending
Hgb Pending
Hct Pending
Plt Count Pending
Sodium Cancelled Pending
Potassium Cancelled Pending
Chloride Cancelled
Carbon Dioxide
BUN
Creatinine
Glucose
Calcium
10/09/24 10/09/24 10/09/24
06:32 06:32 06:32
WBC
Hgb
Hct
Plt Count
Sodium
Potassium
Chloride Pending
Carbon Dioxide Cancelled Pending
BUN Cancelled Pending
Creatinine Cancelled
Glucose
Calcium
10/09/24 10/09/24 10/09/24
06:32 06:32 06:32
WBC
Hgb
Hct
Plt Count
Sodium
Potassium
Chloride
Carbon Dioxide
BUN
Creatinine Pending
Glucose Cancelled Pending
Calcium Cancelled Pending
10/09/24 10/09/24
07:43 07:46
WBC
Hgb
Hct
Plt Count
Sodium Cancelled Cancelled
Potassium Cancelled Cancelled
Chloride Cancelled Cancelled
Carbon Dioxide Cancelled Cancelled
BUN Cancelled Cancelled
Creatinine Cancelled Cancelled
Glucose Cancelled Cancelled
Calcium Cancelled Cancelled
Vital Signs:
Vital Signs
Temp Pulse Resp BP Pulse Ox
97.5 F 100 20 91/58 92
10/09/24 07:55 10/09/24 07:55 10/09/24 07:55 10/09/24 07:55 10/09/24 07:55
I&O
10/08/24 10/09/24 10/10/24
06:59 06:59 06:59
Output Total 400 / 400 455 / 455
Balance -400 / -400 -455 / -455
[2024-10-09 09:40] LABS: Blood Urea Nitrogen 22 mg/dl (7-17); Calcium 8.9 mg/dl (8.4-10.2); Carbon Dioxide 29 mmol/L (22-30); Chloride 101 mmol/L (98-107); Estimated Creatinine Clearance 52 ml/min; Glucose 101 mg/dl (70-99); Magnesium 1.6 mg/dl (1.6-2.3); Potassium 3.8 mmol/L (3.5-5.1); Sodium 135 mmol/L (135-145); eGFR > 60.00
[2024-10-09] MEDS: LASIX IV (10:01)
[2024-10-09] MEDS: LIPITOR 40 MG PO (10:02)
[2024-10-09] MEDS: ELIQUIS 5 MG PO ×2 (10:02→20:52)
[2024-10-09] MEDS: PROTONIX 40 MG PO (10:02)
[2024-10-09 10:25] LABS: Hematocrit 34.2 % (37.0-47.0); Mean Corp Hgb Conc. 32.2 g/dL (33.0-37.0); Mean Corpuscular Hgb 28.1 pg (27.0-31.0); Mean Corpuscular Volume 87.5 fL (81.0-99.0); Platelet Count 304 10^3/uL (130-400); Red Blood Cell Count 3.91 10^6/uL (4.20-5.40); Red Cell Dist. Width 15.2 % (11.5-14.5); White Blood Cell Count 4.4 10^3/uL (4.8-10.8)
--- NOTE | 2024-10-09 14:21 | CM ---
Spoke with patient bedside with her son Jose simms.
BRENDAN compelted.
Patient llives alone in a 1 story home with no steps to enter.
Patient does need assistance with stairs.
patient ambulates with a Rollator since her hip surgery.
Patient has private care givers 5 days a week M-F 8 hours per day per son, he could not recall name of agency.
Patient went to outpatient therapy after surgery.
Patient interested in VN when she goes home so maybe she can stop using rollator.
Patient also requested home oxygen for bedtime only, TT to MD.
Per patient she is currently not on oxygen, but had it on last night to sleep and feels she needs it.
PT/OT kerri (P)
PCP: Dr Hernandez
Pharmacy: [facility]
Plan: home with possible oxygen needs and VN (agreeable to [facility])
[2024-10-09] MEDS: LASIX 40 MG IV (15:02)
[2024-10-09] MEDS: KCL 20 MEQ PO (20:52)
[2024-10-09] MEDS: XANAX 1 MG PO (20:52)
[2024-10-09] MEDS: MAGNESIUM OXIDE 500 MG PO (20:52)
[2024-10-09] MEDS: TOPROL XL 50 MG PO (20:53)
[2024-10-10 03:30] VITALS: BP 86/55
[2024-10-10 06:00] VITALS: BMI 27.7
[2024-10-10 07:23] VITALS: BP 94/64
[2024-10-10] MEDS: LASIX 40 MG IV ×2 (08:20→15:40)
[2024-10-10] MEDS: ELIQUIS 5 MG PO ×2 (08:21→21:38)
[2024-10-10] MEDS: KCL 20 MEQ PO ×2 (08:21→21:38)
[2024-10-10] MEDS: PROTONIX 40 MG PO (08:21)
[2024-10-10] MEDS: MAGNESIUM OXIDE 500 MG PO ×2 (08:21→21:38)
[2024-10-10] MEDS: LIPITOR 40 MG PO (08:22)
[2024-10-10 08:59] LABS: Blood Urea Nitrogen 20 mg/dl (7-17); Calcium 9.1 mg/dl (8.4-10.2); Chloride 96 mmol/L (98-107); Estimated Creatinine Clearance 61 ml/min; Glucose 81 mg/dl (70-99); Potassium 4.5 mmol/L (3.5-5.1); Sodium 138 mmol/L (135-145); eGFR > 60.00
[2024-10-10 09:10] LABS: Carbon Dioxide 36 mmol/L (22-30)
--- NOTE | 2024-10-10 09:13 | W.PN.HOSP.TC ---
Today's Communication/Plan
-
Continue IV Lasix. Added midodrine. Follow-up with cardiology recommendations
Assessment / Plan
Assessment / Plan
Physical Exam
General: No Apparent Distress
HEENT: Normocephalic, Moist mucous membranes and Atraumatic
Respiratory: Limited, no wheezes
Cardiac: S1/S2
GI: Soft, Non Tender, Non Distended and Normal Bowel Sounds; No Organomegaly
Rectal: No bleeding
Musculoskeletal: b/l less Edema
Neuro: Nonfocal/grossly intact
Psych: calm
A/P:
# Acute heart failure with preserved ejection fraction with significant bilateral lower extremity edema following prolonged international flight in addition to dietary salt indiscretion. Also treated with IV antibiotic for 2 days hospital stay
broad for presumed pneumonia.
-EKG shows sinus tachycardia with PACs
-
c/ w IV Lasix 40 mg BID
Started on Midodrine, will give one time dose now as 2.5 mg
- Echo 10/09/24 showed LVEF 60 to 65%, normal RV. Mild TR, estimated PAP 42 to 45 mmHg.
Add prophylactic oral KCl
-Normal TSH
- Cardiology consulted, input appreciated
# Hypoxia only during sleep. Could be persistent or temporarily because of CHF.
# hypomagnesemia
Replaced
# Hypotension
From reviewing prior admissions. SBP runs low
Paroxysmal atrial fibrillation
- Continue Eliquis
- Continue metoprolol
Crohn's disease
- On Skyrizi
Normocytic anemia
- Hemoglobin stable
History of diverticulosis
Breast cancer
Skin cancer
Hyperlipidemia
- Continue statin
GERD
- Continue Protonix
Hiatal hernia
Anxiety
- Continue alprazolam
Full code
DVT prophylaxis�Eliquis
Cardiac diet
Total time spent to see the patient, examine the patient, review data and lab results, discuss treatment plan with patient, nursing staff around 55 minutes
Anticipated Discharge: Within 24 hours
Subjective/Interval History
-
Date of Service: October 10, 2024
No chest pain
No sob
She wants to go home
Objective Data
-
Labs:
Laboratory Results
10/10/24
07:22
Sodium 138
Potassium 4.5
Chloride 96 L
Carbon Dioxide 36 H
BUN 20 H
Creatinine 0.6
Glucose 81
Calcium 9.1
Vital Signs:
Vital Signs
Temp Pulse Resp BP Pulse Ox
97.6 F 112 18 94/64 97
10/10/24 07:23 10/10/24 08:20 10/10/24 07:23 10/10/24 08:20 10/10/24 07:23
I&O
10/09/24 10/10/24 10/11/24
06:59 06:59 06:59
Intake Total 1080 / 1080
Output Total 400 / 400 1005 / 1005
Balance -400 / -400 75 / 75
[2024-10-10] MEDS: ProAmatine 2.5 MG PO ×3 (10:10→18:07)
[2024-10-10 11:26] VITALS: BP 104/65
[2024-10-10 15:10] VITALS: BP 110/65
--- NOTE | 2024-10-10 18:03 | W.PN.CARDCBS ---
Today's Communication / Plan
-
Add midodrine to support blood pressure and allow further diuresis
Change Toprol succinate to 25 mg twice daily
Continue IV Lasix
Impression / Plan
-
PCP: Dr. Johan Cunningham
Card: Dr. Erica Barrett
Impression:
Admitted with acute HF 10/08/24
Acute HFpEF
B/L LE edema
Paroxysmal Afib
Chronic Eliquis OAC
h/o CVA by MRI in [place] 2021
Hyperlipidemia
Crohn's disease
Anemia
Echo 04/21/2024: EF 55-60%, mild MR, thickened aortic valve leaflets with normal excursion
Echo 10/09/2024: Study pending
Plan:
Acute heart failure with preserved ejection fraction with significant bilateral lower extremity edema following prolonged international flight from [place] in addition to dietary salt indiscretion
-Initial proBNP 1390
-Lower extremity Doppler negative for right lower extremity DVT however she declined having left leg imaged.
-CTA Chest negative for PE
-UA with trace albumin July 2023
-Continue Eliquis anticoagulation for now at 5 mg twice daily
-No chest pain suggestive of angina with undetectable troponin
-She is still volume overloaded however volume status�Up titration of Lasix limited by lower blood pressure trends
-Tubigrip stockings
-I/O, daily weights.
-Keep K greater than 4, mag greater than 2. Agree with magnesium supplementation.
-Repeat echocardiogram today completed and will be reviewed; EF was 55% by last echo 04/21/24
-Optimize goal-directed medical therapy as able
History of paroxysmal atrial fibrillation currently sinus tachycardia with PACs
-Toprol-XL changed from 50 mg nightly due to low blood pressure trends in the morning to 25 mg twice daily.
-Per family, patient may not reliably take medications at home
-Continue Eliquis anticoagulation
-TSH 2.86
Suspect sleep apnea and recommend outpatient testing. Hypoxia during sleep; O2 supplementation
Borderline blood pressures which appear to be chronic and asymptomatic
-Monitor blood pressure trends closely.
-Metoprolol succinate changed from 50 mg nightly to 25 mg twice daily
-Will add midodrine with the hopes of being able to increase diuresis
Hyperglycemia with hemoglobin A1c 5%
Will follow with you
Discussed with son over the phone in patient's room
HPI: Patient comes to the ER today with increased LE edema and is being admitted with acute HF and cardiology has been consulted. Patient reports at least 2 weeks of increased LE edema. Patient takes Lasix 40 mg daily PRN weight gain or edema and
took Lasix at home for 5 days in a row without improvement in edema. Patient denies orthopnea, but has LANE. No chest pain. Patient has a h/o orthopnea and edema, but says this is the worst edema she has had. No recent changes.
Progress Note - Laryngologist
Subjective
Date of Service: October 10, 2024
Seen and examined sitting out of bed to chair. No new complaint
Objective
Labs:
10/09/24 06:32
10/10/24 07:22
Labs
Hgb 11.0 g/dL (12.0-16.0) L 10/09/24 06:32
Hct 34.2 % (37.0-47.0) L 10/09/24 06:32
Plt Count 304 10^3/uL (130-400) 10/09/24 06:32
Sodium 138 mmol/L (135-145) 10/10/24 07:22
Potassium 4.5 mmol/L (3.5-5.1) 10/10/24 07:22
BUN 20 mg/dl (7-17) H 10/10/24 07:22
Creatinine 0.6 mg/dL (0.6-1.0) 10/10/24 07:22
Glucose 81 mg/dl (70-99) 10/10/24 07:22
Troponins
10/08/24
08:22
Troponin I < 0.012
Vital Signs and I&O:
Vital Signs
Temp Pulse Resp BP Pulse Ox
97.1 F 101 18 110/65 96
10/10/24 15:10 10/10/24 15:10 10/10/24 15:10 10/10/24 15:44 10/10/24 17:17
Vital Signs
Temp Pulse Resp BP Pulse Ox
97.1 F 101 18 110/65 96
10/10/24 15:10 10/10/24 15:10 10/10/24 15:10 10/10/24 15:44 10/10/24 17:17
Intake & Output
10/08/24 10/09/24 10/10/24 10/11/24
06:59 06:59 06:59 06:59
Intake Total 1080 / 1080
Output Total 400 / 400 1005 / 1005
Balance -400 / -400 75 / 75
Physical Exam
Physical Exam
General: Awake alert and oriented x 3, nc O2
Heart: Regular, Tachycardic, positive S1/S2, 2/6 SM
Lungs: Bronchovesicular breath sounds decreased on the left but clear
Abd: Obese, mildly distended. Positive bowel sound
Ext: ++ edema
[2024-10-10 19:47] VITALS: BP 121/79
[2024-10-10] MEDS: XANAX 1 MG PO (21:38)
[2024-10-10 23:14] VITALS: BP 99/61
[2024-10-11 03:31] VITALS: BP 96/55
[2024-10-11 06:00] VITALS: BMI 27.3
[2024-10-11 07:45] VITALS: BP 107/64
[2024-10-11] MEDS: KCL 20 MEQ PO ×2 (08:25→20:05)
[2024-10-11] MEDS: ELIQUIS 5 MG PO ×2 (08:25→20:05)
[2024-10-11] MEDS: LASIX 60 MG IV ×2 (08:25→16:35)
[2024-10-11] MEDS: TOPROL XL 25 MG PO ×2 (08:27→20:05)
[2024-10-11] MEDS: ProAmatine 2.5 MG PO (08:27)
[2024-10-11] MEDS: MAGNESIUM OXIDE 500 MG PO ×2 (08:27→20:05)
[2024-10-11] MEDS: PROTONIX 40 MG PO (08:27)
[2024-10-11] MEDS: LIPITOR 40 MG PO (08:27)
[2024-10-11 08:38] LABS: Blood Urea Nitrogen 23 mg/dl (7-17); Calcium 8.4 mg/dl (8.4-10.2); Carbon Dioxide 39 mmol/L (22-30); Chloride 94 mmol/L (98-107); Estimated Creatinine Clearance 52 ml/min; Glucose 75 mg/dl (70-99); Potassium 4.7 mmol/L (3.5-5.1); Sodium 136 mmol/L (135-145); eGFR > 60.00
[2024-10-11] MEDS: REFRESH EYE DROPS (PF) 1 DROPS OPHTH ×4 (10:22→20:05)
[2024-10-11 11:36] VITALS: BP 98/61
[2024-10-11] MEDS: ProAmatine PO (13:19)
[2024-10-11 13:21] LABS: Magnesium 1.6 mg/dl (1.6-2.3)
[2024-10-11] MEDS: ProAmatine 5 MG PO ×2 (13:22→17:26)
[2024-10-11] MEDS: ZADITOR 1 DROP OPHTH ×2 (14:47→21:52)
--- NOTE | 2024-10-11 15:00 | PTCARENOTE ---
Per MD, concern for pink eye so patient should be moved to private room. Pt placed on contact precautions and transferred to room 430 with all belongings. Report given to YESI Biswas.
--- NOTE | 2024-10-11 15:02 | W.PN.CARDCBS ---
Today's Communication / Plan
-
Continue diuresis efforts
Increase midodrine to 5 mg 3 times daily to allow further diuresis
O2 supplementation
Impression / Plan
-
PCP: Dr. Johan Cunningham
Card: Dr. Erica Barrett
Impression:
Admitted with acute HF 10/08/24
Acute HFpEF
B/L LE edema
Paroxysmal Afib
Chronic Eliquis OAC
h/o CVA by MRI in [place] 2021
Hyperlipidemia
Crohn's disease
Anemia
Echo 04/21/2024: EF 55-60%, mild MR, thickened aortic valve leaflets with normal excursion
Echo 10/09/2024: Study pending
Plan:
Acute heart failure with preserved ejection fraction with significant bilateral lower extremity edema following prolonged international flight from [place] in addition to dietary salt indiscretion
-Initial proBNP 1390
-Lower extremity Doppler negative for right lower extremity DVT however she declined having left leg imaged.
-CTA Chest negative for PE
-UA with trace albumin July 2023
-No chest pain suggestive of angina with undetectable troponin
-She is still volume overloaded however With titration of diuretics limited by lower blood pressures
-Lasix increased to 60 mg IV twice daily on 10/10/2024. If blood pressure this afternoon is acceptable we will add metolazone 2.5 mg prior to evening dose.
-Tubigrip stockings to be placed by nursing
-I/O, daily weights.
-Keep K greater than 4, mag greater than 2. replete as needed
-Optimize goal-directed medical therapy as able
History of paroxysmal atrial fibrillation currently sinus tachycardia with PACs
-Toprol-XL changed from 50 mg nightly due to low blood pressure trends in the morning to 25 mg twice daily.
-Per family, patient may not reliably take medications at home
-Continue Eliquis anticoagulation
-TSH 2.86
Suspect sleep apnea and recommend outpatient testing. Hypoxia during sleep; O2 supplementation
Borderline blood pressures which appear to be chronic and asymptomatic
-Monitor blood pressure trends closely.
-Metoprolol succinate changed from 50 mg nightly to 25 mg twice daily
-Will add midodrine with the hopes of being able to increase diuresis
Large hiatal hernia/intrathoracic stomach. Portion of colon and pancreas extend through the hiatal hernia into the lower hemithorax. Compressive atelectasis adjacent to hiatal hernia.� Family aware
Right lobe thyroid nodule noted on CT imaging�TSH within normal limits. Family aware
Hyperglycemia with hemoglobin A1c 5%
Will follow with you
PT eval on Saturday
Discussed with son over the phone in patient's room
HPI: Patient comes to the ER today with increased LE edema and is being admitted with acute HF and cardiology has been consulted. Patient reports at least 2 weeks of increased LE edema. Patient takes Lasix 40 mg daily PRN weight gain or edema and
took Lasix at home for 5 days in a row without improvement in edema. Patient denies orthopnea, but has LANE. No chest pain. Patient has a h/o orthopnea and edema, but says this is the worst edema she has had. No recent changes.
Progress Note - Yoga Coordinator
Subjective
Date of Service: October 11, 2024
Seen and examined with family at bedside. Slow improvement with continued lower extremity edema above baseline
Objective
Labs:
10/09/24 06:32
10/11/24 06:53
Labs
Hgb 11.0 g/dL (12.0-16.0) L 10/09/24 06:32
Hct 34.2 % (37.0-47.0) L 10/09/24 06:32
Plt Count 304 10^3/uL (130-400) 10/09/24 06:32
Sodium 136 mmol/L (135-145) 10/11/24 06:53
Potassium 4.7 mmol/L (3.5-5.1) 10/11/24 06:53
BUN 23 mg/dl (7-17) H 10/11/24 06:53
Creatinine 0.7 mg/dL (0.6-1.0) 10/11/24 06:53
Glucose 75 mg/dl (70-99) 10/11/24 06:53
Vital Signs and I&O:
Vital Signs
Temp Pulse Resp BP Pulse Ox
97.8 F 114 18 98/61 94
10/11/24 11:36 10/11/24 11:36 10/11/24 11:36 10/11/24 11:36 10/11/24 11:36
Vital Signs
Temp Pulse Resp BP Pulse Ox
97.8 F 114 18 98/61 94
10/11/24 11:36 10/11/24 11:36 10/11/24 11:36 10/11/24 11:36 10/11/24 11:36
Intake & Output
10/09/24 10/10/24 10/11/24 10/12/24
06:59 06:59 06:59 06:59
Intake Total 1080 / 1080 400 / 400 480 / 480
Output Total 400 / 400 1005 / 1005 1450 / 1450 500 / 500
Balance -400 / -400 75 / 75 -1050 / -1050 -20 / -20
Physical Exam
Physical Exam
General: Awake alert and oriented x 3, nc O2
Heart: Regular, Tachycardic, positive S1/S2, 2/6 SM
Lungs: Bronchovesicular breath sounds decreased on the left but clear
Abd: Obese, mildly distended. Positive bowel sound
Ext: ++ edema
[2024-10-11 15:32] VITALS: BP 111/67
[2024-10-11] MEDS: MAGNESIUM SULFATE 50 IV (15:34)
[2024-10-11] MEDS: ZAROXOLYN 2.5 MG PO (15:55)
--- NOTE | 2024-10-11 16:45 | PTCARENOTE ---
Patient unable to tolerate IV magnesium, complaining of pain at IV site even while running at a slower rate. No pain when IV is flushed. Provider made aware, OK to d/c infusion. MD to increase frequency of PO Mg. 8.5ml infused before d/c.
[2024-10-11 19:00] VITALS: BP 98/64
[2024-10-11] MEDS: XANAX 1 MG PO (21:51)
[2024-10-11 22:55] VITALS: BP 96/64
[2024-10-11] MEDS: REFRESH EYE DROPS (PF) OPHTH (23:48)
[2024-10-12 03:00] VITALS: BP 97/53
[2024-10-12] MEDS: REFRESH EYE DROPS (PF) OPHTH ×4 (04:03→16:19)
[2024-10-12 05:19] VITALS: BMI 27.6
[2024-10-12 07:00] VITALS: BP 110/61
[2024-10-12] MEDS: PROTONIX 40 MG PO (08:16)
[2024-10-12] MEDS: ELIQUIS 5 MG PO ×2 (08:16→19:39)
[2024-10-12] MEDS: KCL 20 MEQ PO ×2 (08:16→19:39)
[2024-10-12] MEDS: MAGNESIUM OXIDE 500 MG PO ×2 (08:16→19:39)
[2024-10-12] MEDS: LIPITOR 40 MG PO (08:16)
[2024-10-12] MEDS: ZADITOR 1 DROP OPHTH ×2 (08:17→19:40)
[2024-10-12] MEDS: TOPROL XL 25 MG PO (08:21)
[2024-10-12] MEDS: LASIX 60 MG IV ×2 (08:22→16:20)
[2024-10-12] MEDS: ProAmatine 5 MG PO ×3 (08:22→17:38)
[2024-10-12 10:01] LABS: % Basophils 0.6 % (0-2); % Eosinophils 1.6 % (0-6); % Immature Granulocytes 0.4 % (0-0.5); % Lymphocytes 13.4 % (20.5-51.1); % Monocytes 7.1 % (1.7-9.3); % Neutrophils 76.9 % (42.2-75.2); Absolute Eosinophils 0.1 10^3/uL (0-0.7); Absolute Lymphocytes 0.7 10^3/uL (1.2-3.4); Absolute Monocytes 0.4 10^3/uL (0.1-0.6); Absolute Neutrophils 3.9 10^3/uL (1.4-6.5); Hematocrit 38.3 % (37.0-47.0); Hemoglobin 11.7 g/dL (12.0-16.0); Mean Corp Hgb Conc. 30.5 g/dL (33.0-37.0); Mean Corpuscular Volume 91.6 fL (81.0-99.0); Mean Platelet Volume 10.1 fL (7.4-10.4); Nucleated Red Blood Cells % 0 %; Platelet Count 354 10^3/uL (130-400); Red Blood Cell Count 4.18 10^6/uL (4.20-5.40); Red Cell Dist. Width 14.6 % (11.5-14.5); White Blood Cell Count 5.1 10^3/uL (4.8-10.8)
[2024-10-12 10:08] LABS: Blood Urea Nitrogen 28 mg/dl (7-17); Calcium 8.9 mg/dl (8.4-10.2); Chloride 86 mmol/L (98-107); Estimated Creatinine Clearance 37 ml/min; Glucose 130 mg/dl (70-99); Potassium 4.2 mmol/L (3.5-5.1); Sodium 134 mmol/L (135-145); eGFR 54.87
[2024-10-12 10:30] LABS: Carbon Dioxide 44 mmol/L (22-30)
--- NOTE | 2024-10-12 10:50 | W.PN.CARDCBS ---
Addendum entered and electronically signed by Eliecer Barrett MD 10/12/24 17:28:
During this hospital stay she has demonstrated persistent tachycardia.
Sinus tachycardia and occasional PACs by ECG.
She is asymptomatic at rest and with ambulation in her room.
TSH normal, Hgb at baseline.
Clinically HF is improved and continues to improve with diuresis but she remains tachycardic.
Pulse Ox 92-97%
BP is improved with midodrine so will attempt to up-titrate BB (Increase metoprolol succinate from 25 mg BID to 50 mg BID)
Continue diuresis
Addendum entered and electronically signed by Elgin Vicente MD 10/12/24 12:08:
I saw and examined the patient.
The BRIM POUNCER MACHINE OPERATOR or PA's note was reviewed and I agree with the note.
Comment: General: Well developed, well nourished in NAD.
Neck: Supple, no JVD, HJR, carotids +2 B/L, no bruits bilaterally.
Heart: Non displaced PMI, RRR, no murmurs, No S3, S4, no rubs.
Lungs: Scattered rhonchi
Extremities:Moderate edema bilaterally with left leg greater than right leg
Neuro: Grossly nonfocal, awake, alert and oriented x3.
She has continued edema. Will give 2.5 mg of metolazone and increase Lasix to 80 mg IV twice daily.
Original Note:
Today's Communication / Plan
-
Continue IV diuresis
t/c giving an additional metolazone 2.5 mg 30 minutes prior to afternoon Lasix
Monitor renal function or electrolytes
Sodium restriction
PT/OT
Impression / Plan
-
PCP: Dr. Johan Cunningham
Card: Dr. Erica Barrett
Impression:
Admitted with acute HF 10/08/24
Acute HFpEF
B/L LE edema
Paroxysmal Afib
Chronic Eliquis OAC
h/o CVA by MRI in [place] 2021
Hyperlipidemia
Crohn's disease
Anemia
Echo 04/21/2024: EF 55-60%, mild MR, thickened aortic valve leaflets with normal excursion
Echo 10/09/2024: EF 60 to 65%. Mild TR. PAP 42 to 45 mmHg
Plan:
Acute heart failure with preserved ejection fraction with significant bilateral lower extremity edema following prolonged international flight from [place] in addition to dietary salt indiscretion
-Initial proBNP 1390
-Lower extremity Doppler negative for right lower extremity DVT however she declined having left leg imaged.
-CTA Chest negative for PE
-Echo stable with preserved EF
-She is still volume overloaded however with titration of diuretics limited by lower blood pressures
-Lasix increased to 60 mg IV twice daily on 10/10/2024. Given dose of 2.5 mg metolazone 10/11/2024 without significant response. Consider giving an additional 2.5 mg this afternoon
-Tubigrip stockings to be placed by nursing
-I/O, daily weights.
-Keep K greater than 4, mag greater than 2. replete as needed
-Optimize goal-directed medical therapy as able
History of paroxysmal atrial fibrillation currently sinus tachycardia with PACs
-Toprol-XL changed from 50 mg nightly due to low blood pressure trends in the morning to 25 mg twice daily.
-Heart rates reasonably controlled.
-Per family, patient may not reliably take medications at home
-Continue Eliquis anticoagulation
-TSH 2.86
Suspect sleep apnea and recommend outpatient testing. Hypoxia during sleep; O2 supplementation
Borderline blood pressures which appear to be chronic and asymptomatic
-Monitor blood pressure trends closely.
-Metoprolol succinate changed from 50 mg nightly to 25 mg twice daily
-New to midodrine this admission, 5 mg 3 times daily
Large hiatal hernia/intrathoracic stomach. Portion of colon and pancreas extend through the hiatal hernia into the lower hemithorax. Compressive atelectasis adjacent to hiatal hernia.� Family aware
Right lobe thyroid nodule noted on CT imaging�TSH within normal limits. Family aware
Hyperglycemia with hemoglobin A1c 5%
Will follow with you
PT eval
Case was reviewed with the patient, patient's granddaughters 1 who was present in the room and other granddaughter Madina on speaker phone
HPI: Patient comes to the ER today with increased LE edema and is being admitted with acute HF and cardiology has been consulted. Patient reports at least 2 weeks of increased LE edema. Patient takes Lasix 40 mg daily PRN weight gain or edema and
took Lasix at home for 5 days in a row without improvement in edema. Patient denies orthopnea, but has LANE. No chest pain. Patient has a h/o orthopnea and edema, but says this is the worst edema she has had. No recent changes.
Progress Note - Joy Loading Machine Operator
Subjective
Date of Service: October 12, 2024
Patient seen and examined. Granddaughter in room and other granddaughter on speaker phone during visit. Patient notes some shortness of breath still mostly with activity.
Objective
Labs:
10/12/24 09:28
10/12/24 09:27
Labs
Hgb 11.7 g/dL (12.0-16.0) L 10/12/24 09:28
Hct 38.3 % (37.0-47.0) 10/12/24 09:28
Plt Count 354 10^3/uL (130-400) 10/12/24 09:28
Sodium 134 mmol/L (135-145) L 10/12/24 09:27
Potassium 4.2 mmol/L (3.5-5.1) 10/12/24 09:27
BUN 28 mg/dl (7-17) H 10/12/24 09:27
Creatinine 1.0 mg/dL (0.6-1.0) 10/12/24 09:27
Glucose 130 mg/dl (70-99) H 10/12/24 09:27
Vital Signs and I&O:
Vital Signs
Temp Pulse Resp BP Pulse Ox
98.1 F 115 20 100/64 92
10/12/24 07:00 10/12/24 08:22 10/12/24 07:00 10/12/24 08:22 10/12/24 07:00
Vital Signs
Temp Pulse Resp BP Pulse Ox
98.1 F 115 20 100/64 92
10/12/24 07:00 10/12/24 08:22 10/12/24 07:00 10/12/24 08:22 10/12/24 07:00
Intake & Output
10/10/24 10/11/24 10/12/24 10/13/24
06:59 06:59 06:59 06:59
Intake Total 1080 / 1080 400 / 400 880 / 880
Output Total 1005 / 1005 1450 / 1450 1600 / 1600
Balance 75 / 75 -1050 / -1050 -720 / -720
Physical Exam
Physical Exam
GEN: No distress, awake, Ox3, sitting in chair
HEENT: supple, anicteric, mmm
LUNGS: Decreased breath sounds at left base with faint crackles CTA, no wheezes/rales; on room air
CV: Reg with occasional ectopy, S1/S2, 1/6 syst LSB, no murmur
ABD: soft, BS+, NT/ND
EXT: +2-3 lower extremity edema
NEURO: Gross non-focal
SKIN: No rash, war, dry
[2024-10-12 11:00] VITALS: BP 102/66
--- NOTE | 2024-10-12 11:31 | CM ---
sales representative sales manager reviewed patient's chart and met with patient and daughter who was at bedside this am, and they have selected [facility], patient has caregivers in home 8 hours per day, 5 days per week, overnight oximetry report completed and will contact
oxygen company for possible nocturnal oxygen.
Plan; Home with [facility], caregivers and nocturnal oxygen.
--- NOTE | 2024-10-12 11:57 | VNURNOTE ---
Home Health Liaison met with patient and granddaughter at bedside to discuss [facility] nurse/therapy, visits, schedule and homebound status. Patient is agreeable and understands that visits at home will be 2-3 x per week to assess and teach medical
management. Patient is aware that [facility] will contact them for start of care in 1-2 days after discharge from .
[facility] referral completed in [facility].
[2024-10-12 12:44] LABS: Urine Albumin Negative (Neg - Trace); Urine Bilirubin Negative (Negative); Urine Character Clear (Clear); Urine Color Yellow; Urine Glucose Negative (Negative); Urine Ketone Negative (Negative); Urine Leukocyte Negative (Negative); Urine Nitrite Negative (Negative); Urine Occult Blood Negative (Negative); Urine Urobilinogen Negative (Neg - 1+)
--- NOTE | 2024-10-12 13:07 | W.PN.HOSP.TC ---
Today's Communication/Plan
-
monitor vitals
see plan
cw nocturnal O2
cw Iv diuresis; metolazone today
Assessment / Plan
Assessment / Plan
Physical Exam
General: No Apparent Distress
HEENT: Normocephalic, Moist mucous membranes and Atraumatic
Respiratory: Limited, no wheezes
Cardiac: S1/S2
GI: Soft, Non Tender, Non Distended and Normal Bowel Sounds
Rectal: No bleeding
Musculoskeletal: b/l less Edema
Neuro: Nonfocal/grossly intact
Psych: calm
A/P:
# Acute heart failure with preserved ejection fraction with significant bilateral lower extremity edema following prolonged international flight in addition to dietary salt indiscretion. Also treated with IV antibiotic for 2 days hospital stay
broad for presumed pneumonia.
-EKG shows sinus tachycardia with PACs
-
c/ w IV Lasix, change to 60 mg mg BID
Started on Midodrine to TID
- Echo 10/09/24 showed LVEF 60 to 65%, normal RV. Mild TR, estimated PAP 42 to 45 mmHg.
Add prophylactic oral KCl
-Normal TSH
- Cardiology consulted, input appreciated
Hematology on 10/11, 10/12
per nocturnal study 10/10, patient needs 2 L nocturnal O2.
# Suspect right conjunctivitis, possible viral. No eye injury history
She started to have redness around her right eye tearing, foreign body sensation but no burning or pain
Will give artificial tears, cool compresses
# Hypoxia only during sleep. Could be persistent or temporarily because of CHF.
Mild hyponatremia
Monitor
# hypomagnesemia
Replaced
# Hypotension
From reviewing prior admissions. SBP runs low
1.7 cm right lobe thyroid gland nodule. Patient to follow-up outpatient for thyroid ultrasound.
Paroxysmal atrial fibrillation
- Continue Eliquis
- Continue metoprolol
Crohn's disease
- On Skyrizi
Normocytic anemia
- Hemoglobin stable
History of diverticulosis
Breast cancer
Skin cancer
Hyperlipidemia
- Continue statin
GERD
- Continue Protonix
Hiatal hernia
Anxiety
- Continue alprazolam
Full code
DVT prophylaxis�Eliquis
Total time spent to see the patient, examine the patient, review data and lab results, discuss treatment plan with patient, nursing staff around 52 minutes
Anticipated Discharge: 24 - 48 hours
Subjective/Interval History
-
Date of Service: October 12, 2024
denies pain
Objective Data
-
Labs:
Laboratory Results
10/12/24 10/12/24
09:27 09:28
WBC 5.1
Hgb 11.7 L
Hct 38.3
Plt Count 354
Sodium 134 L
Potassium 4.2
Chloride 86 L
Carbon Dioxide 44 H
BUN 28 H
Creatinine 1.0
Glucose 130 H
Calcium 8.9
Vital Signs:
Vital Signs
Temp Pulse Resp BP Pulse Ox
97.8 F 112 20 93/61 95
10/12/24 11:00 10/12/24 12:47 10/12/24 11:00 10/12/24 12:47 10/12/24 11:00
I&O
10/11/24 10/12/24 10/13/24
06:59 06:59 06:59
Intake Total 400 / 400 880 / 880
Output Total 1450 / 1450 1600 / 1600
Balance -1050 / -1050 -720 / -720
[2024-10-12] MEDS: ZAROXOLYN 2.5 MG PO (15:40)
[2024-10-12 19:31] VITALS: BP 112/71
[2024-10-12] MEDS: REFRESH EYE DROPS (PF) 1 DROPS OPHTH (19:39)
[2024-10-12] MEDS: TOPROL XL 50 MG PO (19:39)
[2024-10-12] MEDS: XANAX 1 MG PO (21:24)
[2024-10-12 22:50] VITALS: BP 95/57
[2024-10-13] MEDS: REFRESH EYE DROPS (PF) OPHTH ×5 (00:09→23:48)
[2024-10-13 03:00] VITALS: BP 100/62
[2024-10-13 05:12] VITALS: BMI 27.0
[2024-10-13 07:05] VITALS: BP 86/57
[2024-10-13 07:11] LABS: % Basophils 0.5 % (0-2); % Eosinophils 2.3 % (0-6); % Immature Granulocytes 0.2 % (0-0.5); % Lymphocytes 14.5 % (20.5-51.1); % Monocytes 6.9 % (1.7-9.3); % Neutrophils 75.6 % (42.2-75.2); Absolute Eosinophils 0.1 10^3/uL (0-0.7); Absolute Lymphocytes 0.6 10^3/uL (1.2-3.4); Absolute Monocytes 0.3 10^3/uL (0.1-0.6); Absolute Neutrophils 3.3 10^3/uL (1.4-6.5); Hematocrit 36.7 % (37.0-47.0); Hemoglobin 11.4 g/dL (12.0-16.0); Mean Corp Hgb Conc. 31.1 g/dL (33.0-37.0); Mean Corpuscular Hgb 28.2 pg (27.0-31.0); Mean Corpuscular Volume 90.8 fL (81.0-99.0); Mean Platelet Volume 10.3 fL (7.4-10.4); Nucleated Red Blood Cells % 0 %; Platelet Count 320 10^3/uL (130-400); Red Blood Cell Count 4.04 10^6/uL (4.20-5.40); Red Cell Dist. Width 14.5 % (11.5-14.5); White Blood Cell Count 4.3 10^3/uL (4.8-10.8)
[2024-10-13 07:47] LABS: Blood Urea Nitrogen 36 mg/dl (7-17); Calcium 8.3 mg/dl (8.4-10.2); Chloride 86 mmol/L (98-107); Estimated Creatinine Clearance 36 ml/min; Glucose 84 mg/dl (70-99); Potassium 4.6 mmol/L (3.5-5.1); Sodium 134 mmol/L (135-145); eGFR 54.87
[2024-10-13] MEDS: MAGNESIUM OXIDE 500 MG PO ×2 (07:49→19:45)
[2024-10-13] MEDS: ProAmatine 5 MG PO ×3 (07:49→17:39)
[2024-10-13] MEDS: LIPITOR 40 MG PO (07:50)
[2024-10-13] MEDS: PROTONIX 40 MG PO (07:50)
[2024-10-13] MEDS: TOPROL XL PO (07:50)
[2024-10-13] MEDS: ELIQUIS 5 MG PO ×2 (07:50→19:46)
[2024-10-13] MEDS: KCL 20 MEQ PO ×2 (07:50→19:46)
[2024-10-13] MEDS: ZADITOR 1 DROP OPHTH ×2 (07:51→19:47)
[2024-10-13] MEDS: REFRESH EYE DROPS (PF) 1 DROPS OPHTH ×2 (07:51→11:45)
[2024-10-13 08:08] LABS: Carbon Dioxide 44 mmol/L (22-30)
--- NOTE | 2024-10-13 08:57 | CM ---
Chart reviewed and patient to return to home when stable, has supportive family, home with [facility], patient will require set up for nocturnal oxygen at discharge.
Plan; Home with [facility], nocturnal oxygen.
--- NOTE | 2024-10-13 10:52 | W.PN.CARDCBS ---
Addendum entered and electronically signed by Filomena Patterson PA-C 10/13/24 12:24:
With upward trending BUN may need to consider RHC to further help with volume assessment.
Albumin was low on admission possibly she is third spacing. Repeat Albumin level today. Consider GI consult for possible malabsorption from large gastric hernia. Also patient denies nausea
Addendum entered and electronically signed by Elgin Vicente MD 10/13/24 12:05:
I saw and examined the patient.
The BUTTON CLAMPER or PA's note was reviewed and I agree with the note.
Comment: General: Well developed, well nourished in NAD.
Neck: Supple, no JVD, HJR, carotids +2 B/L, no bruits bilaterally.
Heart: Non displaced PMI, RRR, no murmurs, No S3, S4, no rubs.
Lungs: Clear to auscultation bilaterally, no wheeze, rhonchi, rubs bilaterally,
normal expiratory phase.
Extremities: Moderate edema bilaterally.
Neuro: Grossly nonfocal, awake, alert and oriented x3.
She continues with edema but may be nearing euvolemia. Will try IV Lasix for another 24 hours and consider change to oral Lasix in a.m. Lasix was held due to low blood pressure will give Lasix now. Will decrease Toprol to 25 mg p.o. twice daily.
Recheck proBNP which was 1390 on admission
Original Note:
Today's Communication / Plan
-
Give AM Lasix now
Repeat proBNP
Reduce Toprol back to 25 mg BID
Impression / Plan
-
PCP: Dr. Johan Cunningham
Card: Dr. Erica Barrett
Impression:
Admitted with acute HF 10/08/24
Acute HFpEF
B/L LE edema
Paroxysmal Afib
Chronic Eliquis OAC
h/o CVA by MRI in [place] 2021
Hyperlipidemia
Crohn's disease
Anemia
Echo 04/21/2024: EF 55-60%, mild MR, thickened aortic valve leaflets with normal excursion
Echo 10/09/2024: EF 60 to 65%. Mild TR. PAP 42 to 45 mmHg
Plan:
Acute heart failure with preserved ejection fraction with significant bilateral lower extremity edema following prolonged international flight from [place] in addition to dietary salt indiscretion
-Initial proBNP 1390
-Lower extremity Doppler negative for right lower extremity DVT however she declined having left leg imaged.
-CTA Chest negative for PE
-Echo stable with preserved EF
-HF continues to improve with diuresis. However she is still with evidence of volume overloaded
-Lasix increased to 60 mg IV twice daily on 10/10/2024. Given dose of 2.5 mg metolazone 10/11/2024, 10/12/24. Weight is down 4 pounds overnight.
-Pulse Ox 92-97%
-Tubigrip stockings to be placed by nursing
-I/O, daily weights.
-Keep K greater than 4, mag greater than 2. replete as needed
-Optimize goal-directed medical therapy as able
History of paroxysmal atrial fibrillation currently sinus tachycardia with PACs on telemetry and EKG this admission
-She is asymptomatic at rest and with ambulation in her room.
-Toprol-XL changed from 50 mg nightly due to low blood pressure trends in the morning to 25 mg twice daily.
-Heart rates remain elevated. Attempted to up-titrate BB (Increase metoprolol succinate from 25 mg BID to 50 mg BID on 10/12/2024 in pm). Now hypotensive. A.M. Toprol held 10/13/2024
-Per family, patient may not reliably take medications at home
-Continue Eliquis anticoagulation
-TSH 2.86, Hgb at baseline.
Clinically
Suspect sleep apnea and recommend outpatient testing. Hypoxia during sleep; O2 supplementation
Borderline blood pressures which appear to be chronic and asymptomatic
-Monitor blood pressure trends closely.
-Metoprolol succinate changed from 50 mg nightly to 25 mg twice daily. Increased to 50 mg twice a day 10/12 2024 in the evening. Blood pressure hypotensive am of 10/13 and Toprol and Lasix held. Will reduce back to 25 mg twice a day with hold
parameters.
-New to midodrine this admission, 5 mg 3 times daily. If BP continues to remain low may need to consider increasing Midodrine
Large hiatal hernia/intrathoracic stomach. Portion of colon and pancreas extend through the hiatal hernia into the lower hemithorax. Compressive atelectasis adjacent to hiatal hernia.� Family aware
Right lobe thyroid nodule noted on CT imaging�TSH within normal limits. Family aware
Hyperglycemia with hemoglobin A1c 5%
Will follow with you
PT eval
HPI: Patient comes to the ER today with increased LE edema and is being admitted with acute HF and cardiology has been consulted. Patient reports at least 2 weeks of increased LE edema. Patient takes Lasix 40 mg daily PRN weight gain or edema and
took Lasix at home for 5 days in a row without improvement in edema. Patient denies orthopnea, but has LANE. No chest pain. Patient has a h/o orthopnea and edema, but says this is the worst edema she has had. No recent changes.
Progress Note - Fishing Vessel Mate
Subjective
Date of Service: October 13, 2024
Patient seen and examined. Resting comfortably in bed with HOB flat. Still notes LE edema but denies SOB at rest or CP
Objective
Labs:
10/13/24 06:40
10/13/24 06:40
Labs
Hgb 11.4 g/dL (12.0-16.0) L 10/13/24 06:40
Hct 36.7 % (37.0-47.0) L 10/13/24 06:40
Plt Count 320 10^3/uL (130-400) 10/13/24 06:40
Sodium 134 mmol/L (135-145) L 10/13/24 06:40
Potassium 4.6 mmol/L (3.5-5.1) 10/13/24 06:40
BUN 36 mg/dl (7-17) H 10/13/24 06:40
Creatinine 1.0 mg/dL (0.6-1.0) 10/13/24 06:40
Glucose 84 mg/dl (70-99) 10/13/24 06:40
Vital Signs and I&O:
Vital Signs
Temp Pulse Resp BP Pulse Ox
97.6 F 92 18 86/57 95
10/13/24 07:05 10/13/24 07:50 10/13/24 07:05 10/13/24 07:50 10/13/24 10:21
Vital Signs
Temp Pulse Resp BP Pulse Ox
97.6 F 92 18 86/57 95
10/13/24 07:05 10/13/24 07:50 10/13/24 07:05 10/13/24 07:50 10/13/24 10:21
Intake & Output
10/11/24 10/12/24 10/13/24 10/14/24
06:59 06:59 06:59 06:59
Intake Total 400 / 400 880 / 880 880 / 880
Output Total 1450 / 1450 1600 / 1600 1750 / 1750
Balance -1050 / -1050 -720 / -720 -870 / -870
Physical Exam
Physical Exam
GEN: No distress, awake, Ox3, sitting in chair
HEENT: supple, anicteric, mmm
LUNGS: Mildly decreased breath sounds bases orther CTA, no wheezes/rales; on room air
CV: Reg with occasional ectopy, S1/S2, 1/6 syst LSB murmur
ABD: soft, BS+, NT/ND
EXT: +2 lower extremity edema
NEURO: Gross non-focal
SKIN: No rash, warm, dry, pink
[2024-10-13 11:05] VITALS: BP 96/63
[2024-10-13] MEDS: LASIX 60 MG IV ×2 (11:44→16:43)
--- NOTE | 2024-10-13 12:30 | W.PN.HOSP.TC ---
Today's Communication/Plan
-
monitor vitals
see plan
cw diuresis per cardiology
PT
Assessment / Plan
Assessment / Plan
Physical Exam
General: No Apparent Distress
HEENT: Normocephalic, Moist mucous membranes and Atraumatic
Respiratory: Limited, no wheezes
Cardiac: S1/S2
GI: Soft, Non Tender, Non Distended and Normal Bowel Sounds
Rectal: No bleeding
Musculoskeletal: b/l less Edema
Neuro: Nonfocal/grossly intact
Psych: calm
A/P:
# Acute heart failure with preserved ejection fraction with significant bilateral lower extremity edema following prolonged international flight in addition to dietary salt indiscretion. Also treated with IV antibiotic for 2 days hospital stay
broad for presumed pneumonia.
-EKG shows sinus tachycardia with PACs
-
c/ w IV Lasix, change to 60 mg mg BID
Started on Midodrine to TID
- Echo 10/09/24 showed LVEF 60 to 65%, normal RV. Mild TR, estimated PAP 42 to 45 mmHg.
Add prophylactic oral KCl
-Normal TSH
- Cardiology consulted, input appreciated
Hematology on 10/11, 10/12
per nocturnal study 10/10, patient needs 2 L nocturnal O2.
per CM, appears need another study within 48hrs prior to dc
# Suspect right conjunctivitis, possible viral. No eye injury history
She started to have redness around her right eye tearing, foreign body sensation but no burning or pain
Will give artificial tears, cool compresses
# Hypoxia only during sleep. should see pulmonary outpatient for sleep study
Mild hyponatremia
Monitor
# hypomagnesemia
Replaced
# Hypotension
From reviewing prior admissions. SBP runs low
1.7 cm right lobe thyroid gland nodule. Patient to follow-up outpatient for thyroid ultrasound.
Paroxysmal atrial fibrillation
- Continue Eliquis
- Continue metoprolol
Crohn's disease
- On Skyrizi
Normocytic anemia
- Hemoglobin stable
History of diverticulosis
Breast cancer
Skin cancer
Hyperlipidemia
- Continue statin
GERD
- Continue Protonix
Hiatal hernia
Anxiety
- Continue alprazolam
Full code
DVT prophylaxis�Eliquis
Anticipated Discharge: 24 - 48 hours
Subjective/Interval History
-
Date of Service: October 13, 2024
denies pain
Objective Data
-
Labs:
Laboratory Results
10/13/24
06:40
WBC 4.3 L
Hgb 11.4 L
Hct 36.7 L
Plt Count 320
Sodium 134 L
Potassium 4.6
Chloride 86 L
Carbon Dioxide 44 H
BUN 36 H
Creatinine 1.0
Glucose 84
Calcium 8.3 L
Vital Signs:
Vital Signs
Temp Pulse Resp BP Pulse Ox
98.0 F 103 17 96/63 94
10/13/24 11:05 10/13/24 11:05 10/13/24 11:05 10/13/24 11:44 10/13/24 11:05
I&O
10/12/24 10/13/24 10/14/24
06:59 06:59 06:59
Intake Total 880 / 880 880 / 880
Output Total 1600 / 1600 1750 / 1750 400 / 400
Balance -720 / -720 -870 / -870 -400 / -400
[2024-10-13 13:02] LABS: NT-proBNP 486 pg/ml
[2024-10-13 15:05] VITALS: BP 96/61
[2024-10-13] MEDS: MIRALAX 17 GRAMS PO (15:51)
[2024-10-13] MEDS: TOPROL XL 25 MG PO (19:45)
[2024-10-13 19:52] VITALS: BP 101/64
[2024-10-13] MEDS: XANAX 1 MG PO (21:37)
[2024-10-13 23:47] VITALS: BP 102/67
[2024-10-14 03:00] VITALS: BP 94/62
[2024-10-14] MEDS: REFRESH EYE DROPS (PF) 1 DROPS OPHTH ×3 (04:56→12:25)
[2024-10-14 05:46] VITALS: BMI 26.9
[2024-10-14 07:13] VITALS: BP 103/67
[2024-10-14 08:06] LABS: % Basophils 0.4 % (0-2); % Eosinophils 1.3 % (0-6); % Immature Granulocytes 0.6 % (0-0.5); % Lymphocytes 11.2 % (20.5-51.1); % Monocytes 8.3 % (1.7-9.3); % Neutrophils 78.2 % (42.2-75.2); Absolute Eosinophils 0.1 10^3/uL (0-0.7); Absolute Lymphocytes 0.6 10^3/uL (1.2-3.4); Absolute Monocytes 0.4 10^3/uL (0.1-0.6); Absolute Neutrophils 4.1 10^3/uL (1.4-6.5); Hematocrit 37.5 % (37.0-47.0); Hemoglobin 11.5 g/dL (12.0-16.0); Mean Corp Hgb Conc. 30.7 g/dL (33.0-37.0); Mean Corpuscular Hgb 27.7 pg (27.0-31.0); Mean Corpuscular Volume 90.4 fL (81.0-99.0); Mean Platelet Volume 10.7 fL (7.4-10.4); Nucleated Red Blood Cells % 0 %; Platelet Count 331 10^3/uL (130-400); Red Blood Cell Count 4.15 10^6/uL (4.20-5.40); Red Cell Dist. Width 14.4 % (11.5-14.5); White Blood Cell Count 5.3 10^3/uL (4.8-10.8)
[2024-10-14] MEDS: KCL 20 MEQ PO (08:24)
[2024-10-14] MEDS: LIPITOR 40 MG PO (08:24)
[2024-10-14] MEDS: ZADITOR 1 DROP OPHTH (08:24)
[2024-10-14] MEDS: PROTONIX 40 MG PO (08:24)
[2024-10-14] MEDS: ProAmatine 5 MG PO ×2 (08:25→12:26)
[2024-10-14] MEDS: ELIQUIS 5 MG PO (08:26)
[2024-10-14] MEDS: MAGNESIUM OXIDE 500 MG PO (08:26)
[2024-10-14] MEDS: TOPROL XL PO (08:26)
[2024-10-14] MEDS: LASIX 60 MG IV (08:27)
[2024-10-14 08:47] LABS: Blood Urea Nitrogen 41 mg/dl (7-17); Calcium 8.5 mg/dl (8.4-10.2); Chloride 82 mmol/L (98-107); Estimated Creatinine Clearance 33 ml/min; Glucose 112 mg/dl (70-99); Potassium 4.3 mmol/L (3.5-5.1); Sodium 133 mmol/L (135-145); eGFR 48.94
[2024-10-14 09:09] LABS: Carbon Dioxide 43 mmol/L (22-30)
[2024-10-14] MEDS: CILOXAN 0.3% OPHTHALMIC SOLUTION 1 DROP OPHTH (10:26)
[2024-10-14 11:04] VITALS: BP 109/64
--- NOTE | 2024-10-14 11:32 | W.PN.HOSP.TC ---
Today's Communication/Plan
-
monitor vitals
see plan
meds titrate per cardiology
outpatient bmp with pcp or cardiology
nocturnal o2
cipro eye drops
f/u Ophtho soon outpatient
time of discharge 38 minutes
Assessment / Plan
Assessment / Plan
Physical Exam
General: No Apparent Distress
HEENT: Normocephalic, Moist mucous membranes and Atraumatic,mild eye redness
Respiratory: Limited, no wheezes
Cardiac: S1/S2
GI: Soft, Non Tender, Non Distended and Normal Bowel Sounds
Rectal: No bleeding
Musculoskeletal: b/l less Edema
Neuro: Nonfocal/grossly intact
Psych: calm
A/P:
# Acute heart failure with preserved ejection fraction with significant bilateral lower extremity edema following prolonged international flight in addition to dietary salt indiscretion. Also treated with IV antibiotic for 2 days hospital stay
broad for presumed pneumonia.
-EKG shows sinus tachycardia with PACs
-
c/ w IV Lasix, change to 60 mg mg BID; now on hold. Transition to p.o. diuretics per cardiology recommendation
Started on Midodrine to TID
- Echo 10/09/24 showed LVEF 60 to 65%, normal RV. Mild TR, estimated PAP 42 to 45 mmHg.
Add prophylactic oral KCl
-Normal TSH
- Cardiology consulted, input appreciated. Discussed with cardiology and they will follow-up with patient outpatient
Hematology
per nocturnal study 10/14, patient needs 2 L nocturnal O2.
# Suspect conjunctivitis, possible viral. No eye injury history
Could have dry eyes with possible abrasion. Spoke with son at bedside, patient to follow-up with ophthalmology soon
She started to have redness around her right eye tearing, foreign body sensation
Will give artificial tears, cool compresses, started Cipro. family aware for optho follow up
# Hypoxia only during sleep. should see pulmonary outpatient for sleep study
Mild hyponatremia
Monitor
# hypomagnesemia
Replaced
# Hypotension
From reviewing prior admissions. SBP runs low
1.7 cm right lobe thyroid gland nodule. Patient to follow-up outpatient for thyroid ultrasound.
Paroxysmal atrial fibrillation
- Continue Eliquis
- Continue metoprolol
Crohn's disease
- On Skyrizi
Normocytic anemia
- Hemoglobin stable
History of diverticulosis
Breast cancer
Skin cancer
Hyperlipidemia
- Continue statin
GERD
- Continue Protonix
Hiatal hernia
Anxiety
- Continue alprazolam
Full code
DVT prophylaxis�Eliquis
Anticipated Discharge: Today
Subjective/Interval History
-
Date of Service: October 14, 2024
has eye discomfort
Objective Data
-
Labs:
Laboratory Results
10/14/24
06:41
WBC 5.3
Hgb 11.5 L
Hct 37.5
Plt Count 331
Sodium 133 L
Potassium 4.3
Chloride 82 L
Carbon Dioxide 43 H
BUN 41 H
Creatinine 1.1 H
Glucose 112 H
Calcium 8.5
Vital Signs:
Vital Signs
Temp Pulse Resp BP Pulse Ox
97.6 F 100 17 109/64 92
10/14/24 11:04 10/14/24 11:04 10/14/24 11:04 10/14/24 11:04 10/14/24 11:04
I&O
10/13/24 10/14/24 10/15/24
06:59 06:59 06:59
Intake Total 880 / 880 1480 / 1480
Output Total 1750 / 1750 1685 / 1685
Balance -870 / -870 -205 / -205
--- NOTE | 2024-10-14 11:51 | W.DCSUMMARY ---
Discharge Summary
Discharge Data
Date of Admission: 10/08/24
Date of Discharge: 10/14/24
-
Pending Results: No
Hospital Course
84-year-old female with past medical history of proximal atrial fibrillation, Crohn's disease, normocytic anemia, diverticulosis, breast cancer, skin cancer, hyperlipidemia, GERD, hiatal hernia, anxiety came to the hospital with acute congestive
heart failure exacerbation. Echocardiogram was done which showed EF of 60 to 65%. Patient also had persistent sinus tachycardia with PACs which was being managed by cardiology. Initially she was treated with IV Lasix however her blood pressure
was also low so she was started on midodrine. On discharge she was transitioned to oral Lasix. She also had nocturnal shortness of breath and had nocturnal O2 study where she qualified for 2 L of nocturnal O2. She was instructed to follow-up with
pulmonary for sleep study outpatient. She also had suspected conjunctivitis for which she was instructed to see ophthalmology soon outpatient to check her eye pressures. In the meantime she was started on eyedrops including ciprofloxacin. On this
hospitalization she also had incidental finding of 1.7 cm right lobe thyroid gland nodule for which you instructed to get outpatient thyroid ultrasound with primary care provider. Once her symptoms continue to improve, she was then discharged home
with instructions to follow-up with all her physicians outpatient.
Discharge Plan
-
Patient Disposition: Home with Home Care
Discharge Diagnosis/Procedures: Acute heart failure with preserved ejection fraction with significant bilateral lower extremity edema
Suspect Conjunctivitis
Incidental 1.7 cm right lobe thyroid gland nodule
Diet: 2 Gram Sodium and Restrict fluids to 64 oz
Driving Restrictions: As prior to admission
Bathing Restrictions: None
Blood Work: -Check non-fasting blood work in 1 week.
Others Tests: Thyroid ultrasound outpatient with PCP
Other Services: VN
Specialty Instructions: Weigh Daily- Call MD for wt gain/loss 3 lbs overnight/5 lbs in 1 week
Activity Restrictions/Additional Instructions:
Please see ophthalmology soon as possible
Note to [facility] (if receiving home care through [facility]):
Initiate the Home Health Diuretic Protocol
Instructions: *DCA Heart Failure Instructions
Referrals:
Jonny Jean MD [Active] -
Maris Hernandez DO [Family Provider] -
Kelsey Duncan MD [Active] - Immediately
Erica Barrett MD [Active] - 10/26/24 11:20 am (You have an appt to see Dr. Erica Barrett at the [place] office on 10/26/24 at 11:20 AM. Please call [phone] if you need to reschedule.)
Additional Discharge Medication Instructions: -Start taking Lasix (furosemide) 40 mg once a day every day to control fluid retention.
-Start taking potassium chloride 20 meq once a day
-Start taking magnesium oxide 500 mg twice a day
-Change Toprol (metoprolol succinate) 25 mg (one 25 mg tablet or 1/2 of a 50 mg tablet) twice a day to help control your heart rate.
-Start taking midodrine 5 mg at 8 AM, 1 PM and 6 PM to help keep your blood pressure stable.
Prescriptions:
New
potassium chloride 20 mEq Tablet,Er Particles/Crystals
20 meq PO DAILY Qty: 30 0RF
magnesium oxide 500 mg magnesium Tablet
500 mg PO BID Qty: 60 11RF
midodrine 2.5 mg Tablet
5 mg PO TID@0800,1300,1800 Qty: 90 11RF
metoprolol succinate 25 mg Tablet Extended Release 24 Hr
25 mg PO BID Qty: 60 11RF
furosemide [Lasix] 40 mg tablet
40 mg PO DAILY Qty: 30 11RF
ciprofloxacin HCl 0.3 % Drops
1 drp ophthalmic (eye) Q4H Qty: 5 0RF
Refresh Classic (PF) 1.4-0.6 % Dropperette
1 drp ophthalmic (eye) Q4 Qty: 50 0RF
Continued
pantoprazole 40 MG tablet,delayed release (DR/EC)
40 mg PO DAILY
multivitamin with folic acid [Tab-A-Varinder] 1 TABLET tablet
1 tab PO DAILY
atorvastatin 40 mg Tablet
40 mg PO DAILY
Eliquis 5 mg Tablet
5 mg PO BID
alprazolam 1 mg tablet
1 mg PO HS
omega-3 acid ethyl esters 1 gram capsule
2 g PO BID
cyanocobalamin (vitamin B-12) [Vitamin B-12] 1,000 mcg Tablet
1,000 mcg PO DAILY
ergocalciferol (vitamin D2) 1,250 mcg (50,000 unit) capsule
1,250 mcg PO FR
Skyrizi 360 mg/2.4 mL (150 mg/mL) wearable injector
360 mg SC Q6W
Prolia 60 mg/mL Syringe
60 mg SC [id number]
Discontinued
metoprolol succinate 50 MG tablet extended release 24 hr
50 mg PO HS
furosemide 40 mg tablet
40 mg PO DAILYPRN PRN (Reason: foot swelling)
Discharge Orders:
Discharge Patient (As Directed); Ordered 10/14/24
Ordered By: Abilio Chavez
Discharge Date and Time
Discharge Date/Time: 10/14/24 13:25
Print Language: [place]LAND[place]
--- NOTE | 2024-10-14 11:55 | W.PN.CARDCBS ---
Today's Communication / Plan
-
Discharge on Lasix 40 mg daily
Pending blood pressure and blood work as an outpatient consider SGLT2 inhibitor.
Outpatient blood work ordered.
Stable for discharge.
Impression / Plan
-
PCP: Dr. Johan Cunningham
Card: Dr. Erica Barrett
Impression:
Admitted with acute HF 10/08/24
Acute HFpEF
B/L LE edema
Hypoalbuminemia
Paroxysmal Afib
Chronic Eliquis OAC
h/o CVA by MRI in [place] 2021
Hyperlipidemia
Crohn's disease
Anemia
Bilateral eye discomfort and itching
Significant hiatal hernia left chest
Echo 04/21/2024: EF 55-60%, mild MR, thickened aortic valve leaflets with normal excursion
Echo 10/09/2024: EF 60 to 65%. Mild TR. PAP 42 to 45 mmHg
Plan:
I evaluated the patient today with her granddaughter at the bedside and second granddaughter who is a physician assistant softball coach on the phone.
Her eyes have been itchy and uncomfortable which she feels was from an eye mask she used last night. She is going to have outpatient ophthalmology visit. Hospitalist physician has assessed and I will defer to them.
She continues to improve from a heart failure point of view with slow diuresis in the setting of hypotension (now requiring midodrine), volume overload and hypoalbuminemia. Labs remain fairly stable overall with improved proBNP. I have reviewed
labs. BUN/creatinine slightly increased 41/1.1. She is likely euvolemic despite lower extremity edema/slightly dry. Oxygenation status is stable.
Stable for discharge home from a cardiac point of view.
Acute heart failure with preserved ejection fraction with significant bilateral lower extremity edema following prolonged international flight from [place] in addition to dietary salt indiscretion
-Initial proBNP 1390---now 486
-Change IV Lasix to oral 40 mg daily
-Labs ordered for next week.
-Pending blood pressure and blood work as an outpatient consider SGLT2 inhibitor.
-Call if she gains 3 pounds in 1 day or 5 pounds in 1 week. She will be followed by [facility].
-Sodium and fluid restricted diet. She does admit she was having increased sodium in her diet on her recent trip which may have been part of her trigger in addition to travel and recent pneumonia.
-Lower extremity Doppler negative for right lower extremity DVT however she declined having left leg imaged.
-CTA Chest negative for PE
-Echo stable with preserved EF
-Tubigrip stockings to be used at home with leg elevation.
-Keep K greater than 4, mag greater than 2. replete as needed
-Optimize goal-directed medical therapy as able
History of paroxysmal atrial fibrillation currently sinus tachycardia with PACs on telemetry and EKG this admission. Sinus tachycardia may also be in part related to large hiatal hernia and autonomic dysfunction
-She is asymptomatic at rest and with ambulation in her room.
-Toprol-XL changed from 50 mg nightly due to low blood pressure trends in the morning to 25 mg twice daily.
-Heart rates acceptable. Attempted to up-titrate BB (Increase metoprolol succinate from 25 mg BID to 50 mg BID on 10/12/2024 in pm).
-Continue Eliquis anticoagulation
-TSH 2.86, Hgb at baseline.
Suspect sleep apnea and recommend outpatient testing. Hypoxia during sleep; O2 supplementation
Borderline/low blood pressures which appear to be chronic and asymptomatic and in part related to diuresis in the setting of hypoalbuminemia and third spacing.
-Midodrine added and blood pressures are stable. Continue.
-Monitor blood pressure trends closely.
Large hiatal hernia/intrathoracic stomach. Portion of colon and pancreas extend through the hiatal hernia into the lower hemithorax. Compressive atelectasis adjacent to hiatal hernia.� Family aware
Right lobe thyroid nodule noted on CT imaging�TSH within normal limits. Family aware
Hyperglycemia with hemoglobin A1c 5%
She will have ophthalmology assessment as an outpatient
Spoke with family at great length.
Follow-up with cardiology arranged. Cardiology service has E scribed all of the cardiovascular medications. We have also added cardiac restrictions on discharge paperwork. We also have printed and sent lab slips.
HPI: Patient comes to the ER today with increased LE edema and is being admitted with acute HF and cardiology has been consulted. Patient reports at least 2 weeks of increased LE edema. Patient takes Lasix 40 mg daily PRN weight gain or edema and
took Lasix at home for 5 days in a row without improvement in edema. Patient denies orthopnea, but has LANE. No chest pain. Patient has a h/o orthopnea and edema, but says this is the worst edema she has had. No recent changes.
Progress Note - Big Data Software Engineer
Subjective
Date of Service: October 14, 2024
Her eyes are bothering her. Otherwise she remains stable.
Objective
Labs:
10/14/24 06:41
10/14/24 06:41
Labs
Hgb 11.5 g/dL (12.0-16.0) L 10/14/24 06:41
Hct 37.5 % (37.0-47.0) 10/14/24 06:41
Plt Count 331 10^3/uL (130-400) 10/14/24 06:41
Sodium 133 mmol/L (135-145) L 10/14/24 06:41
Potassium 4.3 mmol/L (3.5-5.1) 10/14/24 06:41
BUN 41 mg/dl (7-17) H 10/14/24 06:41
Creatinine 1.1 mg/dL (0.6-1.0) H 10/14/24 06:41
Glucose 112 mg/dl (70-99) H 10/14/24 06:41
Vital Signs and I&O:
Vital Signs
Temp Pulse Resp BP Pulse Ox
97.6 F 100 17 109/64 92
10/14/24 11:04 10/14/24 11:04 10/14/24 11:04 10/14/24 11:04 10/14/24 11:04
Vital Signs
Temp Pulse Resp BP Pulse Ox
97.6 F 100 17 109/64 92
10/14/24 11:04 10/14/24 11:04 10/14/24 11:04 10/14/24 11:04 10/14/24 11:04
Intake & Output
10/12/24 10/13/24 10/14/24 10/15/24
06:59 06:59 06:59 06:59
Intake Total 880 / 880 880 / 880 1480 / 1480 660 / 660
Output Total 1600 / 1600 1750 / 1750 1685 / 1685
Balance -720 / -720 -870 / -870 -205 / -205 660 / 660
Physical Exam
Physical Exam
General: Well developed, well nourished in NAD.
Heart: Non displaced PMI, RRR, no murmurs, No S3, S4, no rubs.
Lungs: Coarse anterior breath sounds
Extremities: No clubbing, cyanosis or +1 to +2 edema
Neuro: Grossly nonfocal, awake, alert and oriented x3.
--- NOTE | 2024-10-14 12:17 | VNURNOTE ---
Chart reviewed. Faxed Rx, clinicals for home nocturnal 02 to Renata at [facility]. Informed her of DC today. Faxed to [phone]
--- NOTE | 2024-10-14 12:31 | CM ---
manager disaster recovery reviewed patient's chart and met with patient and patient has been cleared for discharge to home, plan is to home with [facility], and nocturnal oxygen from [facility]. IMM completed and placed on chart.
Plan; Home with [facility] and nocturnal oxygen.
--- NOTE | 2024-10-15 09:53 | W.HF.CON ---
Heart Failure
- LV Function
Left ventricular function study result: LV Ejection fraction >/= 50%
Ejection Fraction Percentage: 60-65
- ARNI
Patient already on ARNI: No
Heart Failure ARNI Not Indicated: LV Ejection Fraction >/= 40%
- ACEI/ARB
Patient already on ACEI/ARB: No
Heart Failure ACEI/ARB Not Indicated: LV Ejection Fraction > 40%
- Beta Marzena
Patient already on Evidence Based Beta Marzena: Yes
- Mineralocorticord Receptor Antagonist
Patient already on MRA: No
Heart Failure MRA Not Indicated: LV Ejection Fraction > 40%
- SGLT-2 Inhibitor
Patient already on SGLT-2 Inhibitor: No
Heart Failure SGLT-2 Inhibitor Contraindication: Patient Refusal
- Afib Anticoagulation
Patient already on Anticoagulation for Afib: Yes
- NYHA CHF Classification
NYHA CHF Classification Level: Class III - Symptoms w/ min exertion, interferes w/ nml daily activity
- ACC/AHA Stage
ACC/AHA Stage: Stage C: Symptomatic Heart Failure
== END 2024-10-14 13:25 | disposition home health service (06) | DRG 292 ==
LOC: 4 WEST ACU 12:59
PROVIDERS: Physician Assistant Medical; ADMITTING PHYSICIAN Hospitalist; ATTENDING PHYSICIAN Internal Medicine; EMERGENCY PHYSICIAN Emergency Medicine; FAMILY PHYSICIAN Family Medicine; OTHER PHYSICIAN Internal Medicine Cardiovascular Disease
DX: I50.31 Acute diastolic (congestive) heart failure (principal); K50.90 Crohn's disease, unspecified, without complications; I48.0 Paroxysmal atrial fibrillation; K21.9 Gastro-esophageal reflux disease without esophagitis; F41.9 Anxiety disorder, unspecified; E83.42 Hypomagnesemia; C50.919 Malignant neoplasm of unspecified site of unspecified female breast; E78.00 Pure hypercholesterolemia, unspecified; Z85.3 Personal history of malignant neoplasm of breast; Z79.01 Long term (current) use of anticoagulants; Z87.891 Personal history of nicotine dependence
CPT/HCPCS: 71046; 71275; 80048; 80053; 81003; 82040; 83036; 83735; 83880; 84443; 84484; 85025; 85027; 85379; 93005; 93306; 93970; 94762; 96374; 97163; 97167; 99285; Q9967

== ENCOUNTER → 2024-11-18 07:02 | Outpatient (REF) | payer OTHER, SELFPAY | LOC: HWRAD 07:02 | PROVIDERS: ATTENDING PHYSICIAN Family Medicine | DX: E04.1 Nontoxic single thyroid nodule (principal) | CPT/HCPCS: 76536 ==

== ENCOUNTER → 2025-03-02 07:44 | Outpatient (REF) | payer OTHER, SELFPAY | LOC: HWRAD 07:44 | PROVIDERS: ATTENDING PHYSICIAN Internal Medicine Rheumatology; FAMILY PHYSICIAN Family Medicine | DX: M81.0 Age-related osteoporosis without current pathological fracture (principal) | CPT/HCPCS: 77080 ==

== ENCOUNTER → 2025-04-26 07:06 | Outpatient (REF) | payer OTHER, SELFPAY | LOC: HWRCS 07:06 | PROVIDERS: ATTENDING PHYSICIAN Internal Medicine Cardiovascular Disease; FAMILY PHYSICIAN Family Medicine | DX: I49.1 Atrial premature depolarization (principal) | CPT/HCPCS: 93306 ==

== ENCOUNTER → 2025-05-03 11:19 | Outpatient (REF) | payer OTHER, SELFPAY | LOC: HWRCS 11:19 | PROVIDERS: ATTENDING PHYSICIAN Internal Medicine Cardiovascular Disease; FAMILY PHYSICIAN Family Medicine | DX: I48.0 Paroxysmal atrial fibrillation (principal); I49.1 Atrial premature depolarization; R00.2 Palpitations | CPT/HCPCS: 78452; 93017; A9500; J2785 ==

== ENCOUNTER 2025-05-13 16:30 | Inpatient (IN) | payer OTHER, SELFPAY ==
[2025-05-13] VITALS (8 sets, daily range): BP systolic 108–122; BP diastolic 60–82
--- NOTE | 2025-05-13 13:01 | CON.NEURO4 ---
Addendum entered and electronically signed by Luis Pritchard MD 05/13/25 14:31:
Studies reviewed.
I have personally examined the patient. I reviewed and agree with the NATUROPATHIC PHYSICIAN's Note.
My addenda:
Patient minimally interactive. No acute distress.
Speech moaning nearly constantly. Some preserved phrases after 20 minutes of evaluations
Follows no requests w/o difficulty. No tremor.
Extra-ocular movements grossly intact.
Facial movements full and symmetric. Hearing intact to normal conversational volume.
Normal UE movements bilaterally. No significant movement bilateral lower extremities.
Neck: full ROM.
Chest: no dyspnea
Heart: no JVD
Ext: (-) Clubbing, (-) Cyanosis, (-) Edema
IMPRESSIONS/RECOMMENDATIONS:
Abrupt onset of change in mental status
Based on CT of head, CTA and CT perfusion as well as examination, less likely this is secondary to stroke and more likely due to toxic metabolic encephalopathy. It is not clear how much the patient's hypoxia is related to current symptomatology.
Would restart the patient's apixaban when patient is able to take by mouth
Would ensure adequate oxygenation and supportive care
Eventual check of MRI of brain with and without contrast to ensure no structural changes
Rehabilitation evaluations
From a neurological perspective, permissive hypertension is acceptable although TIA/stroke is low in the differential at this time. Goal of normotension beginning 03/14/2025 at approximately 1400 hrs.
Total Critical Care Time=�40 minutes.
The neurological system is affected and the action required by me to prevent further deterioration or potential was control over the item listed first in the Impressions and Recommendations section of this note.
I was present and personally examined the patient.� I discussed patient care with other professional health care providers.
Also discussed with family.
Will continue to follow patient.
Original Note:
Documented by User: Loretta Fitzgerald NP 05/13/25 14:18
Consultation - Neurology 4
-
CONSULTING PHYSICIAN: Luis Pritchard MD
REFERRING PHYSICIAN: ER/Dr. Garrett
DICTATED BY: TREASURE Mackey
DATE/TIME OF REQUEST: 05/13/25
DATE/TIME OF CONSULTATION: 05/13/25
Reason for Consultation: Stroke Alert
History of Present Illness:
This is an 85-year-old female who has presented to the hospital with report of unresponsiveness. Patient's family and Cardiology Dr. Erica Barrett at bedside report that she has been holding her apixaban since 05/07/25 for a paraesophageal
hernia repair at [facility] on 05/10/25. This morning (05/13/25), her family notes that they last saw her at her baseline around 0830 eating breakfast. She reportedly took oxycodone for pain mid-morning. Around 1230 patient was found unresponsive. On EMS
arrival her pulse ox was 40% on room air. A stroke alert was activated on arrival in the ER. CT head was obtained and is negative for any acute intracranial abnormalities but demonstrates an old occipital ischemic stroke and extensive subcutaneous
emphysema in the neck soft tissues. CTA head/neck was obtained and is negative for any acute abnormalities. CT brain perfusion was obtained and is negative for an ischemic penumbra or core infarct. NIHSS is currently 16 but is challenging to assess
due to lack of cooperation. Exam is nonfocal. She is not a candidate for TNK/IAT due to CT brain perfusion failing to demonstrate any ischemia, recent major surgery, and no LVO for IAT. Patient is unable to provide a review of systems due to aphasia.
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
Surgical History: Paraesophageal hernia repair, lumpectomy, THR, Mohs surgery, septoplasty
Family History: Reviewed and noncontributory.
Social History: Former smoker. No alcohol or illicit drug use.
Allergies: No known allergies.
Home Medications: See below.
Review of Symptoms:
Per the HPI. I am unable to obtain a complete review of systems�because of patient's inability to provide history.
Physical Exam:
The patient is afebrile, abdomen is nondistended, breathing is unlabored, skin is warm and dry.
NIH Stroke Scale:
I performed the NIH stroke scale on the patient on 05/13/25 at 1300. The patient scored 16 points on the NIH stroke scale assessment, which were assigned as follows: See below.
Neurologic Examination:
The patient is awake but not following commands or answering most questions. Restless and pulling off oxygen mask. There is severe aphasia, mild dysarthria. On cranial nerve assessment, pupils are 3 mm bilateral, round and reactive to light and
accommodation. JULES visual metz and EOMs. There is no facial asymmetry. JULES hearing. JULES tongue. Spontaneously moves extremities, upper extremities antigravity, localizes BUE. Withdraws bilateral lower extremities. There is drift in bilateral upper
extremities. No involuntary movement noted. JULES coordination, sensation, and double simultaneous.
Lab Results: See below.
Neuro Imaging:
1. CT head 05/13/25: No evidence of large vessel occlusion, or arterial dissection. Extensive subcutaneous emphysema within the soft tissues of the head and neck, retropharyngeal space, and mediastinum. No apical pneumothorax on either side. Small
bilateral pleural effusions. 2 cm right thyroid nodule. Consider nonemergent thyroid ultrasound for further characterization.
2. CTA head/neck 05/13/25: No evidence of large vessel occlusion, or arterial dissection. Extensive subcutaneous emphysema within the soft tissues of the head and neck, retropharyngeal space, and mediastinum. No apical pneumothorax on either side.
Small bilateral pleural effusions. 2 cm right thyroid nodule. Consider nonemergent thyroid ultrasound for further characterization.
3. CT brain perfusion 05/13/25: CBF 0ml, Tmax 0ml.
Differentials for the patient's presentation include:
1. Altered mental status; etiology is likely toxic metabolic encephalopathy in the setting of narcotic usage/hypoxia, less likely an acute ischemic stroke but possible given holding apixaban.
2. Recent paraesophageal hernia repair.
Patient has the following risk factors for their symptoms: Holding apixaban/Afib, recent major surgery
IV Tenecteplase/IAT candidacy: She is not a candidate for TNK/IAT due to CT brain perfusion failing to demonstrate any ischemia, recent major surgery, and no LVO for IAT.
Recommendations:
-Metabolic/infectious workup per primary team.
-IF patient fails to return to baseline will consider EEG, MRI brain.
-Resume home apixaban when able.
-Neurological checks per unit guidelines.
Discussed patient care with: Dr. Pritchrad, the patient, patient's family
Vital Signs and Labs
-
Vital Signs and Labs:
Vital Signs
Pulse Resp BP Pulse Ox
111 14 110/82 95
05/13/25 12:55 05/13/25 12:55 05/13/25 12:54 05/13/25 13:10
Medications
-
Home Medications
�Medication �Instructions �Recorded
multivitamin with folic acid 400 1 tab PO DAILY Supplement 03/13/20
mcg tablet (Tab-A-Varinder)
pantoprazole 40 mg tablet,delayed 40 mg PO DAILY Gastrointestinal 03/13/20
release issue
alprazolam 1 mg tablet 1 mg PO HS Mental Health/Anxiety 09/05/22
apixaban 5 mg tablet (Eliquis) 5 mg PO BID Blood clot 09/05/22
prevention/tx
atorvastatin 40 mg tablet 40 mg PO DAILY High cholesterol 09/05/22
omega-3 acid ethyl esters 1 gram 2 g PO BID Supplement 09/05/22
capsule
cyanocobalamin (vitamin B-12) 1,000 mcg PO DAILY Supplement 08/12/23
1,000 mcg tablet (Vitamin B-12)
ergocalciferol (vitamin D2) 1,250 1,250 mcg PO FR Supplement 08/12/23
mcg (50,000 unit) capsule
risankizumab-rzaa 360 mg/2.4 mL 360 mg SC Q6W Crohn's disease 08/12/23
(150 mg/mL) subcut wearable
injector (Skyrizi)
denosumab 60 mg/mL subcutaneous 60 mg SC [id number] Autoimmune 10/08/24
syringe (Prolia) Disorder
ciprofloxacin HCl 0.3 % eye drops 1 drp ophthalmic (eye) Q4H #5 mL 10/14/24
furosemide 40 mg tablet (Lasix) 40 mg PO DAILY Heart Failure #30 10/14/24
tabs
magnesium oxide 500 mg PO BID Electrolyte 10/14/24
Repletion #60 tabs
metoprolol succinate 25 mg 25 mg PO BID Heart Failure #60 tabs 10/14/24
tablet,extended release 24 hr
midodrine 2.5 mg tablet 5 mg (2 x 2.5 mg) PO 10/14/24
TID@0800,1300,1800 Blood pressure
#90 tabs
polyvinyl alcohol-povidone (PF) 1 drp ophthalmic (eye) Q4 #50 ea 10/14/24
1.4 %-0.6 % eye drops in a
dropperette (Refresh Classic (PF))
potassium chloride 20 mEq 20 meq PO DAILY Electrolyte 10/14/24
tablet,extended release(part/cryst) Repletion #30 tabs
NIH Stroke Score
Subsequent NIH Scale
Date of Subsequent NIH Scale: 05/13/25
Time of Subsequent NIH Scale: 13:00
NIH Stroke Score
Level of Consciousness: 1 - Arousable
LOC Questions: 2-Neither correct
LOC Commands: 2-Performs neither correctly
Best Horizontal Gaze: 0-Normal
Visual Metz: 0=Normal, no visual loss (JULES)
Facial Palsy: 0=Normal, symmetrical
Motor - Right Arm: 1=Drift < 10 seconds
Motor - Left Arm: 1=Drift < 10 seconds
Motor - Right Le-None vs. gravity
Motor - Left Le-None vs. gravity
Limb Ataxia: 0-Absent
Sensation: 0-Normal
Best Language: 2-Severe aphasia
Dysarthria: 1-Mild slurring
Extinction and Inattention: 0-No abnormality
NIH Total Score:: 16
Modified Willow (mRS) Score
Modified Willow Scale (mRS): Moderately severe disability. Unable to attend to bodily needs/walk.
Score: 4
Alteplase Contraindication
Inclusion and Exclusion criteria reviewed: Yes
Reasons for NON-Tx with Thrombolytics POSSIBLE Exclusions: Major surgery or serious trauma within proceding 14 days
IAT Contraindications: Imaging doesn't show large vessel occlusion as cause of stroke

Documented by User: Luis Pritchard MD 05/13/25 14:24
NIH Stroke Score
NIH Stroke Score
NIH Total Score:: 16
Modified Merary (mRS) Score
Score: 4
--- NOTE | 2025-05-13 13:06 | ED.CVA ---
History of Present Illness
General
Chief Complaint: CVA/TIA Symptoms
Source: family and ambulance crew
Exam Limitations: altered mental status
Time Seen by Provider: 05/13/25 12:51
Nursing documentation reviewed up to this point in time: agreed with
Onset of Stroke Symptoms
Onset of symptoms known: Yes
Date of onset of symptoms: 05/13/25
History of Present Illness
History of Present Illness:
85-year-old female presents for department due to being found unresponsive by family just prior to arrival. She was last seen normal at 8:30 AM. She had paraesophageal hernia repair this past week at [facility]. She was taken off
of her Eliquis for her atrial fibrillation, and has not yet restarted it. She took OxyContin at about 10:30 AM. Her oxygenation was 40% on room air upon EMS arrival.
Past History
Past History
ED Past Medical History: Arrthythmia, CVA and Other (Crohn's disease)
ED Past Surgical History: Orthopedic and Other (Nose, left hip replacement left breast surgery, paraesophageal hernia repair)
Social History
Tobacco: Non-smoker
Alcohol: None
Drug: None
Personal:
Living: with family
Employment: Retired
Family History
Family History: Other (Noncontributory)
Review of Systems
Review of Systems
Allergies reviewed?: Yes
Unable to obtain full review of systems at this time due to: due to acuity
All Other Systems: Not applicable
Respiratory: Reports trouble breathing
Cardiac: Reports no symptoms
Phy Exam
Physical Exam
Physical Exam:
Physical Exam
General: Respiratory distress, responding to name
Neck: supple. no meningeal signs. normal posterior pharynx
Heart: s1/s2 regular rate and rhythm, no murmur. equal radial
pulses.
HEENT: Pupils equal round reactive to light, EOMI
Lungs: no acute respiratory distress. clear bilaterally
Abdomen: normal bowel sounds. not tender. no CVAT, wound adhesive intact on abdominal incisions
Neuro: Response to name, lifting hands, not following commands
Skin: no rash
Psychiatric: well kept. interactive and cooperative
Extremities: no edema. no calf tenderness. negative homans. good distal pulses
Course
Orders/Labs/Results
Orders:
Orders
05/13/25 12:52
Electrocardiogram (*1) Stat
Reason for Study: Other
Other Reason for Exam: neuro symptoms
CT BRAIN PERF STROKE ALERT Urgent
Comment:
Reason For Exam: altered mental status
CT HEAD STROKE ALERT W/o Cont Urgent
Comment:
Reason For Exam: altered mental status
CT HEAD/NECK ANG STROKE ALERT Urgent
Comment:
Reason For Exam: altered mental status
Cardiac Monitoring- Treatment ONCE
EKG- Treatment ONCE
CR Chest Portable - 1 View Urgent
Comment:
Reason For Exam: hypoxia, short of breath
Reason Study Needs to be Portable: Patient Unstable
O2 Therapy [RESP] Stat
Titrate/Wean O2 to maintain O2 sat greater than (%): 92
Pulse Ox/cont/shift [RESP] Stat
Quantity: 1
05/13/25 12:58
Complete Blood Count/With Diff Urgent
PTT Urgent
Prothrombin Time Urgent
Troponin I Urgent
05/13/25 13:49
CT Chest PE Study Urgent
Comment:
Reason For Exam: hypoxia, post op from paresophageal hernia repair
05/13/25 13:52
Add On- LAB Urgent
Tests Added?: pro-bnp
05/13/25 13:53
Bladder Scan- Treatment ONCE
05/13/25 13:56
Urinalysis Reflex To Culture Urgent
05/13/25 14:11
Basic Metabolic Panel Urgent
05/13/25 15:06
Consult Interventional Radiology [IRAD CONSULT] Urgent
Consulting Provider: Luis Enrique Santana
Was physician already notified: Yes
Procedure being ordered, including laterality if applicable: central venous access
Acknowledgement that appropriate orders are entered: Yes
Furosemide [Lasix] 40 mg IV NOW STA
05/13/25 15:08
Comprehensive Metabolic Panel Urgent
05/13/25 15:44
Echo 2D MMode Color/Doppler Routine
Reason for Study: acute HF
Cardiology Consult: Erica Barrett
05/13/25 15:46
Admit/Transfer Patient As Directed
Co-Sign Provider:
Level of Care: Inpatient admission
Assign to:: IMU- Intermediate Care
Physician / Group: dragan
Diagnosis: acute hypoxic respiratory failure
Reason for Hospitalization: acute hypoxic respiratory failure
Expected length of stay greater than two midnights?: Yes
ELOS- Estimated Length of Stay in days: 3
I certify the patient meets the requirements for IP care: Yes
PRN Pain Medication Management As Directed
May give lesser potent ordered pain med per pt: Yes
preference::
Protocol:: Medication orders for pain may be administered in a
manner that supports deferring to patient preference
when the pt is:
- Requesting an ordered lesser potent pain medication.
Least to most potent pain medications are defined
as: acetaminophen < NSAID < tramadol < opioids
(morphine, oxycodone, hydromorphone).
- Requesting a lesser dose of the same medication IF
ORDERED.
- Requesting a less intrusive route of administration
if both routes are prescribed by the provider (PO <
IV).
05/13/25 15:47
Echo Follow up Study W Dop Routine
Reason for Study: acute HF
Cardiology Consult: Erica Barrett
Code Status As Directed
Resuscitation Status: Full Code
05/13/25 15:49
PICC Line As Directed
05/13/25 23:50
NT-proBNP Urgent
Comment: ADD ON
Abnormal Lab Results
05/13/25 05/13/25
12:58 14:11
RBC 4.00 L 10^6/uL
(4.20-5.40)
Hgb 11.2 L g/dL
(12.0-16.0)
Hct 35.1 L %
(37.0-47.0)
MCHC 31.9 L g/dL
(33.0-37.0)
RDW 15.3 H %
(11.5-14.5)
MPV 10.9 H fL
(7.4-10.4)
Absolute Lymphs (auto) 0.2 L 10^3/uL
(1.2-3.4)
Immature Gran % 0.7 H %
(0-0.5)
Neutrophils % 90.0 H %
(42.2-75.2)
Lymphocytes % 3.0 L %
(20.5-51.1)
PT 14.8 H Sec
(11.4-14.6)
APTT 42.6 H Sec
(23.4-35.0)
Sodium 123 L mmol/L
(135-145)
Chloride 94 L mmol/L
(98-107)
BUN 25 H mg/dl
(7-17)
Creatinine 1.2 H mg/dL
(0.6-1.0)
Glucose 100 H mg/dl
(70-99)
Calcium 6.1 L* mg/dl
(8.4-10.2)
Troponin I 0.103 H* ng/ml
05/13/25 12:58
Vital Signs
Initial and Last Documented VS:
Initial Vital Signs
Pulse Resp
107 22
05/13/25 12:53 05/13/25 12:53
Last Documented Vital Signs
Temp Pulse Resp BP Pulse Ox
97.7 F 85 17 112/75 100
05/13/25 14:36 05/13/25 15:49 05/13/25 15:15 05/13/25 15:49 05/13/25 15:15
MDM/Problems Addressed
Differential Diagnosis Includes:
cva, PE, chf, uti
MDM/Problems Addressed:
85-year-old female with CHF exacerbation, hypoxia, altered mental status, hyponatremia, hypocalcemia. Discussed with neurology who saw patient on stroke alert. No indication for tPA or IAT. Discussed with nephrology, who recommends IV Lasix for
patient's hyponatremia. CT chest attempted, but stopped after IV line failed. Suspect CHF is more likely cause of her hypoxia. Interventional radiology consulted for support for additional IV access.
Chronic conditions affecting care: Cardiomyopathy
Acute Exacerbation and/or Progression of Chronic Illness: Cardiomyopathy
*Radiology
Radiology exam reviewed: radiology read reviewed (CT head and neck no acute findings, subcutaneous emphysema. Chest x-ray pneumomediastinum)
*Pulse Oximetry
SaO2: 95
Nasal Cannula flow liters per minute: 15
Patient hypoxic: yes
*EKG
Interpreted by ED Provider?: Yes
EKG Intrepretation Date: 05/13/25
EKG Intrepretation Time: 13:34
Interpretation: abnormal
Comparison EKG: changes noted
Heart Rate: 113
Rate: tachycardiac
Rhythm: sinus tachycardia
Colton: normal axis
Interval: normal interval
QRS Pattern: normal QRS
Ischemia: non-specific ST changes
*Vendor Specialist Interpretation
Rate: tachycardiac
Interpretation: abnormal
Heart Rate: 115
Rhythm: sinus tachycardia
*Critical Care Note
Total Time (30-74mins, 75-104mins- exclusive of procedures): 30
comment:
Critical care statement: A total of 30 minutes of critical care time was provided for this patient. This includes management of unstable vital signs, evaluation of the patient at bedside, reviewing the patient's pertinent medical records, discussion
with consultants, review of old EKGs and review of pertinent medical records. This time with separate from time utilized to perform the aforementioned documented procedures
Patient Management
Social determinants of health affecting care: Living situation and Strong social support
Discussion with other providers: Hospitalist and Monitoring Analyst (Nephrology)
Escalation/DeEscalation of care consider admission/obs:
Admit indicated
ED Attending Note
-
Portions of this chart may have been created with voice recognition software.� Occasional wrong word or��sound alike� substitutions may have occurred due to the inherent limitations of voice recognition software.
Discharge Plan
Departure
Patient Disposition: Admit
Date of Disposition: 05/13/25
Time of Disposition: 15:05
Admit to: IMU
Presentation/result/management discussed w/ accepting MD/DO: Hospitalist
Patient with high blood pressure during this ER visit?: No
Condition: Fair
Discharge Problem:
Acute exacerbation of CHF (congestive heart failure), Respiratory failure, Acute alteration in mental status, Acute hyponatremia, Hypocalcemia
Prescriptions:
No Action
pantoprazole 40 MG tablet,delayed release (DR/EC)
40 mg PO DAILY
atorvastatin 40 mg Tablet
40 mg PO HS
Eliquis 5 mg Tablet
5 mg PO BID
Rx Instructions:
family stated eliquis was held for surgery due to restart tomorrow 05/14/25 MKO
alprazolam 1 mg tablet
1 mg PO HS
Skyrizi 360 mg/2.4 mL (150 mg/mL) wearable injector
360 mg SC Q6W
Prolia 60 mg/mL Syringe
60 mg SC [id number]
metoprolol succinate 25 mg Tablet Extended Release 24 Hr
25 mg PO BID Qty: 60 11RF
acetaminophen [Tylenol Ex Str Arthritis Pain] 500 mg Tablet
500 mg PO Q6H PRN (Reason: mild pain)
Rx Instructions:
alternating with oxycodone
oxycodone 5 mg Tablet
5 mg PO Q4HPRN PRN (Reason: severe pain)
Rx Instructions:
alternating with tylenol
furosemide [Lasix] 40 mg tablet
40 mg PO DAILYPRN PRN (Reason: Heart Failure)
Rx Instructions:
takes with potassium
potassium chloride 20 mEq tablet,ER particles/crystals
20 meq PO DAILYPRN PRN (Reason: Electrolyte Repletion)
Referrals:
UNKNOWN,NO INTERVIEW [Family Provider]
Interventions
Interventions:
*General Assessment Last Done: 05/13/25 14:33
*Neglect/Abuse Screening Last Done: 05/13/25 14:33
*ED COVID-19 Vaccine History Last Done: 05/13/25 14:33
*ED Influenza Vaccine History Last Done: 05/13/25 14:33
[facility] Risk Assessment Tool Last Done: 05/13/25 14:35
*Risk Screen - Suicide (C-SSRS) Last Done: 05/13/25 14:33
ED- Pulmonary Assessment Last Done: 05/13/25 14:34
ED- Neurological Assessment Last Done: 05/13/25 14:34
ED- Cardiac Assessment Last Done: 05/13/25 14:34
Discharge Date and Time
Print Language: BELIZEAN
[2025-05-13 13:15] LABS: Hematocrit 35.1 % (37.0-47.0); Hemoglobin 11.2 g/dL (12.0-16.0); Mean Corp Hgb Conc. 31.9 g/dL (33.0-37.0); Mean Corpuscular Volume 87.8 fL (81.0-99.0); Nucleated Red Blood Cells % 0 %; Platelet Count 165 10^3/uL (130-400); Red Cell Dist. Width 15.3 % (11.5-14.5)
[2025-05-13 13:26] LABS: INR 1.18; PT 14.8 Sec (11.4-14.6)
[2025-05-13 13:27] LABS: APTT 42.6 Sec (23.4-35.0)
[2025-05-13 13:45] LABS: Troponin I 0.103 ng/ml
[2025-05-13 14:39] LABS: Blood Urea Nitrogen 25 mg/dl (7-17); Calcium 6.1 mg/dl (8.4-10.2); Carbon Dioxide 25 mmol/L (22-30); Chloride 94 mmol/L (98-107); Glucose 100 mg/dl (70-99); Sodium 123 mmol/L (135-145); eGFR 43.81
--- NOTE | 2025-05-13 14:54 | CON.CAR ---
Addendum entered and electronically signed by Erica Barrett MD 05/13/25 17:38:
I saw and examined the patient.
The Intermediate Accountant's note was reviewed and I agree with the note.
Comment: Patient well-known to me. I saw her on arrival to the emergency department. She presented initially unresponsive but moving all 4 extremities and seem to wince to pain, later keeping her eyes open and seeming to turn her head to verbal
stimulus. Neurologically this seemed improved compared to initial presentation. She recently underwent paraesophageal hernia surgery .
She has history of paroxysmal atrial fibrillation and CVA. She has been off of oral anticoagulation before surgery and plan was to resume oral anticoagulation tomorrow. She has been being followed by her family and woke up this morning, had
something to eat and then went back to bed after taking 1 Oxycodone. Later her son found her poorly responsive. She was noted to have hypoxemia. Stroke alert called in the ER. I discussed with neurology and emergency department physician.
Negative for stroke. Hope to be more related to TME.
She does have baselines edema and more edema noted. proBNP level is quite elevated. Extensive subcutaneous air noted.
Impression/plan:
Change in mental status
- Possibly related to hypoxemia, severe illness post paraesophageal hernia repair, metabolic derangements
- Negative for CVA
- Continue supportive care
- Appreciate consultants and primary service input
- Reassess echocardiogram
- Rule out infectious source
Acute hypoxemic respiratory failure
- May be in part related to recent procedure, atelectasis, postop effusions and diaphragm dysfunction, subcutaneous emphysema
- May be related to volume overload in the setting of recent surgery
- Exclude pulmonary embolism. Await CT scan.
- Avoid narcotics if able
Paroxysmal atrial fibrillation
- Follow monitor
- Resume oral anticoagulation when able
- Rate control
- EKG likely sinus tachycardia, repeat
Elevated troponin
- Lexiscan nuclear stress test negative for ischemia 04/2025
- Likely non-IL troponin elevation given recent surgery
- Trend troponins
Paraesophageal hernia repair [facility] 05/10/2025 until 05/11/2025
Acute on chronic heart failure with preserved ejection fraction. Heart failure admission for heart failure with preserved ejection fraction 10/08/2024
- Agree with diuresis
- Follow input/output and daily weights
- Follow renal function and electrolytes
- Guideline directed medical therapy is limited given history of orthostasis. Follow.
History of CVA
- Known paroxysmal atrial fibrillation anticoagulation when able
Hypocalcemia
Hyponatremia
Hypocalcemia
Hyperlipidemia
Crohn's disease
Anemia
Lexiscan nuclear stress test 05/03/2025 no significant ischemia.
Echocardiogram 04/26/2025 normal left ventricular ejection fraction. Trivial pericardial effusion. No change compared to 09/2024.
Original Note:
Consultation
Consultation Request
Date/Time Consultation Requested: 05/13/2025
Date/Time Consultation Performed: 05/13/2025
Requesting Provider: Dr. Garrett
Performing Provider: Dr. Erica Barrett
Reason for Consultation: Possible CVA
Medical History
-
History of Present Illness:
Patient presents to the ER today with hypoxia and change in mental status and cardiology is consulted for possible acute HF. Patient was last seen in the office on 12/30/2024 and at that time appeared stable on a regimen of Lasix 40 mg daily
according to medication reconciliation list in the office, but patient family reports dosing was more like 3 times a week. Patient has chronic LE edema. Last admission for heart failure was 09/2024 and at that point patient diuresed to a dry weight
of 147lbs. In the interim patient saw a surgeon at [facility] and was offered paraesophageal hernia repair surgery. Patient had preoperative Lexiscan nuclear stress test on 05/03/2025 that was negative for ischemia. Patient had echocardiogram 04/26/2025
that showed preserved EF without significant valve disease. Patient's surgeon told her to stop Eliquis on 05/05/2025 and patient has surgery on 05/10/2025 at [facility]. Patient's family reports surgery was considered a success and patient has had
symptomatic improvement. Patient has been following a liquid diet and was able to return home on 05/11/2025. Family has been with the patient at all times and this morning she awoke in her usual state of health, ate some Jell-O took a pain
medication and then lay down to take a nap. The patient's son checked on her at around 930 and the patient was unresponsive and did not awaken easily and 911 was called. Patient was noted to be hypoxic at 40% on room air and supplemental oxygen
therapy was started. In the emergency room initially patient was responsive to pain with palpation of the abdomen. CT of the head without acute intracranial abnormality and neurology saw the patient for possible stroke alert, but they do not feel
patient's presentation is consistent with CVA. Additional labs then returned including a proBNP of 21,800 which is her highest level on record and CT of the chest suggested small B/L pleural effusions. Patient was ordered Lasix 40 mg IV by ER
attending, but has yet to receive that dose. Sodium level was 123 initially.
PMH:
Recent admission for paraesophageal hernia repair at [facility] 05/10/2025 until 05/11/2025
Recent admission for acute HF 10/08/2024 until 10/14/2024
Chronic HFpEF
Chronic B/L LE edema
h/o Hypoalbuminemia
Paroxysmal Afib
Chronic Eliquis OAC
Last dose 05/05/2025 due to paraesophageal hernia repair surgery 05/10/2025
h/o CVA by MRI in [place] 2021
Hyperlipidemia
Crohn's disease
Anemia
Past Medical History
Past Medical History: Other
Past Surgical History: Gynecological (lumpectomy) and Orthopedic
Social History
Tobacco: Former Smoker
Alcohol: None
Drug: None
Personal:
Living: With Family
Family History
Family History: Cancer
Allergies / Home Medications
Allergy/AdvReac Type Severity Reaction Status Date / Time
No Known Allergies Allergy Verified 10/08/24 08:07
�Medication �Instructions �Recorded �Confirmed �Type
pantoprazole 40 mg tablet,delayed 40 mg PO DAILY Gastrointestinal 03/13/20 05/13/25 History
release issue
alprazolam 1 mg tablet 1 mg PO HS Mental Health/Anxiety 09/05/22 05/13/25 History
apixaban 5 mg tablet (Eliquis) 5 mg PO BID Blood clot 09/05/22 05/13/25 History
prevention/tx
atorvastatin 40 mg tablet 40 mg PO HS High cholesterol 09/05/22 05/13/25 History
risankizumab-rzaa 360 mg/2.4 mL 360 mg SC Q6W Crohn's disease 08/12/23 05/13/25 History
(150 mg/mL) subcut wearable
injector (Skyrizi)
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
syringe (Prolia) Disorder
metoprolol succinate 25 mg 25 mg PO BID Heart Failure #60 tabs 10/14/24 05/13/25 Rx
tablet,extended release 24 hr
acetaminophen 500 mg tablet 500 mg PO Q6H PRN mild pain 05/13/25 05/13/25 History
furosemide 40 mg tablet (Lasix) 40 mg PO DAILYPRN PRN Heart Failure 05/13/25 05/13/25 History
oxycodone 5 mg tablet 5 mg PO Q4HPRN PRN severe pain 05/13/25 05/13/25 History
potassium chloride 20 mEq 20 meq PO DAILYPRN PRN Electrolyte 05/13/25 05/13/25 History
tablet,extended release(part/cryst) Repletion
Review of Systems
-
History Source: Patient and Family (Granddaughter who is a PA in the ER at [employer], another granddaughter who is a physician plus her who is a physician, son and [id number] and another grandchild and their spouse)
All other systems: Negative unless noted
Physical Exam
Vital Signs
Temp Pulse Resp BP Pulse Ox
97.7 F 111 14 110/82 100
05/13/25 14:36 05/13/25 12:55 05/13/25 12:55 05/13/25 12:54 05/13/25 14:36
GEN: Awake and alert. NAD
HEENT: EOMI, MMM
LUNGS: High flow oxygen. Diffuse Rales and subcutaneous emphysema. No audible wheeze
CV: Sinus tachycardia on tele. Reg, S1/S2, no murmur
ABD: Mildly distended
EXT: +3 B/L LE edema, tender to touch
NEURO: Gross non-focal
SKIN: No rash
Lab Results
05/13/25 12:58
05/13/25 14:11
Troponin I 0.103 ng/ml H* 05/13/25 12:58
Lfx-E-Rseaugfthwy Pept 79116 pg/ml 05/13/25 23:50
Impression / Plan
-
PCP: Dr. Johan Cunningham
Card: Dr. Erica Barrett
Impression:
Presented to the ER with abrupt change in mental status and hypoxia 05/13/2025
Recent admission for paraesophageal hernia repair at [facility] 05/10/2025 until 05/11/2025
Recent admission for acute HF 10/08/2024 until 10/14/2024
Acute hypoxic respiratory failure
Change in mental status
Elevated troponin
Acute HFpEF
Acute on chronic B/L LE edema
Hyponatremia
Hypocalcemia
h/o Hypoalbuminemia
Paroxysmal Afib
Chronic Eliquis OAC
Last dose 05/05/2025 due to paraesophageal hernia repair surgery 05/10/2025
h/o CVA by MRI in [place] 2021
Hyperlipidemia
Crohn's disease
Anemia
Lexiscan nuclear stress test 05/03/2025: Perfusion imaging reveals a small area of moderately to severely decreased counts in the apex, at rest defect remains predominantly fixed consistent with likely soft tissue attenuation, EF 57%
Echo 04/21/2024: EF 55-60%, mild MR, thickened aortic valve leaflets with normal excursion
Echo 10/09/2024: EF 60 to 65%. Mild TR. PAP 42 to 45 mmHg
Echo 04/26/2025: EF 55 to 60%, mild TR, trivial pericardial effusion, unchanged from echo 09/2024
Echo 05/13/2025: Follow-up study, study pending
Plan:
-Patient presents to the ER today with hypoxia and change in mental status and cardiology is consulted for possible acute HF. Patient was last seen in the office on 12/30/2024 and at that time appeared stable on a regimen of Lasix 40 mg daily
according to medication reconciliation list in the office, but patient family reports dosing was more like 3 times a week. Patient has chronic LE edema. Last admission for heart failure was 09/2024 and at that point patient diuresed to a dry weight
of 147lbs. In the interim patient saw a surgeon at [facility] and was offered paraesophageal hernia repair surgery. Patient had preoperative Lexiscan nuclear stress test on 05/03/2025 that was negative for ischemia. Patient had echocardiogram 04/26/2025
that showed preserved EF without significant valve disease. Patient's surgeon told her to stop Eliquis on 05/05/2025 and patient has surgery on 05/10/2025 at [facility]. Patient's family reports surgery was considered a success and patient has had
symptomatic improvement. Patient has been following a liquid diet and was able to return home on 05/11/2025. Family has been with the patient at all times and this morning she awoke in her usual state of health, ate some Jell-O took a pain
medication and then lay down to take a nap. The patient's son checked on her at around 930 and the patient was unresponsive and did not awaken easily and 911 was called. Patient was noted to be hypoxic at 40% on room air and supplemental oxygen
therapy was started. In the emergency room initially patient was responsive to pain with palpation of the abdomen. CT of the head without acute intracranial abnormality and neurology saw the patient for possible stroke alert, but they do not feel
patient's presentation is consistent with CVA. Additional labs then returned including a proBNP of 21,800 which is her highest level on record and CT of the chest suggested small B/L pleural effusions. Patient was ordered Lasix 40 mg IV by ER
attending, but has yet to receive that dose. Sodium level was 123 initially.
-ECG reviewed by me looks like sinus tachycardia
-proBNP is 21,[address] chest showed small B/L pleural effusions suggesting acute HF as a cause for her acute hypoxic respiratory failure.
-Lasix 40 mg IV x 1 ordered by ER attending, but patient has yet to receive the dose. Patient was taking Lasix 40 mg PO three times a week prior to admission. Recommend Lasix 40 mg IV daily and follow labs. If sodium fails to improve with
attempts at diuresis and fluid restriction then would recommend nephrology consultation.
-EF was 55 to 60% by echo 04/26/2025 and repeat follow-up echo study ordered by me on 05/13/2025.
-Initial troponin 0.103. No complaints of chest pain. No ischemic changes on ECG. There is no evidence of ischemia on Lexiscan stress test 05/03/2025. Will trend troponin level to peak. Troponin elevation could be nonischemic myocardial injury
troponin elevation due to hypoxia and acute HF.
-GDMT is limited by orthostasis and prior medication intolerances.
-Outpatient dose of Toprol-XL 25 mg BID should be continued as able
-Patient is not chronically on INGRID/ARB/ARNI due to hypotension
-Midodrine previously stopped due to scalp itching
-Patient is not on an SGLT2 due to previous medication intolerances
-Patient's primary language is English, but patient's family reports patient speaks fluent Italian and they would also prefer to be present either in the room or on the phone for any conversations with the patient which is reasonable given age and
change in mental status on admission.
-Patient has a history of paroxysmal A-fib, currently appears to be sinus tachycardia on ECG.
-Toprol-XL as noted above
-Outpatient dose of Eliquis 5 mg BID (age 85, Cre 1.2, wt 81.1 kg) was held for surgery starting on 05/05/2025 and was scheduled to be restarted on 05/14/2025 as indicated by her surgeon. Hgb stable at 11.[address] imaging does not suggest any acute
issues so we will plan to restart Eliquis 5 mg BID on 05/14/2025.
--- NOTE | 2025-05-13 15:17 | HPS.HSE ---
Addendum entered and electronically signed by Dany Garsia MD 05/13/25 16:19:
Attending addendum:
I saw and evaluated the patient. I reviewed the STOPE MINER�s note and agree with findings and plan as documented in the STOPE MINER�s note. patient found unresponsive at home, came to the ER as a stroke alert, seen by neurology, CTA head and neck shows no large
vessel occlusion or artery dissection, extensive subcutaneous emphysema, patient also noted to have hyponatremia, hypokalemia, there is concern if unresponsiveness caused hypoxia secondary to CHF, Patient seen and examined at bedside, family at
bedside, overall feeling better, still on high flow oxygen .
Physical exam:
GENERAL : Patient is awake, alert, oriented x3
HEENT: Nonicteric sclerae, PERRLA, EOMI. Oropharynx clear. Moist mucous membranes. Conjunctivae appear well perfused.
CHEST: Chest wall is nontender.
HEART: Regular rate and rhythm without murmurs.
LUNGS: Diffuse bilateral rales.
ABDOMEN: Soft, positive bowel sounds, nontender, no organomegaly.
RECTAL: Deferred.
MUSCLES/EXTREMITIES: Multiple skin bruising. Bilateral +2 lower extremity edema
NEUROLOGIC: Cranial nerves II-XII intact without motor/sensory deficit.
Assessment/plan:
Acute metabolic encephalopathy / Acute hypoxic respiratory failure �secondary to acute on chronic diastolic CHF exacerbation
Patient is on high-flow oxygen; continue supplemental oxygen to maintain SpO? >95%, wean as tolerated
Continue diuretics per cardiology recommendations
Strict intake/output monitoring, daily weights, and fluid restriction
Obtain echocardiogram
Cardiology consulted
BNP: 21,[address] chest to rule out PE
Chest X-ray impression:
Elevation of the left hemidiaphragm
Air collection under diaphragm likely related to elevated gastric bubble
Recent paraesophageal hernia surgery may explain extensive subcutaneous emphysema
Airspace disease in right lower lobe likely atelectasis
Recommend comparison with any postoperative images
Most recent echo 04/26/2025 shows:
1. Normal left ventricular chamber size myocardial thickness and systolic function. Left ventricular ejection fraction 55 to 60%.
2. Mild tricuspid regurgitation.
3. Trivial pericardial effusion is present.
4. Technically fair study.
5. Compared to previous echo from September 2024, findings are similar.
Metabolic encephalopathy � CVA ruled out
CTA impression:
No evidence of large vessel occlusion or arterial dissection
Extensive subcutaneous emphysema in head/neck, retropharyngeal space, and mediastinum
No apical pneumothorax
Small bilateral pleural effusions
2 cm right thyroid nodule � consider nonemergent thyroid ultrasound
Head CT impression:
Moderate cortical atrophy and chronic ischemic changes
Old infarct in left cerebellum
Extensive subcutaneous emphysema in neck soft tissues � chest X-ray recommended
Neurology evaluated; recommends laryngeal check and MRI brain with and without contrast
Acute hyponatremia / Hypocalcemia secondary to fluid overload
Fluid restriction and diuretics
Nephrology consulted
CKD Stage IIIb
Continue management as above
Recent paraesophageal hernia repair / Known subcutaneous emphysema
Hold oxycodone
Anemia of chronic disease
Hemoglobin stable at 11.2, no active bleeding
Continue monitoring
Troponin elevation � likely NSTEMI in setting of CHF exacerbation
Troponin: 0.103, continue trending
EKG: sinus tachycardia
Paroxysmal atrial fibrillation
Eliquis on hold
Continue metoprolol
Crohn�s disease
On Skyrizi
History of diverticulosis
History of breast cancer
History of skin cancer
Hyperlipidemia
Continue statin
GERD
Continue Protonix
Anxiety
Continue alprazolam
Code Status: Full Code
DVT Prophylaxis: SCDs
Diet: Cardiac diet
Family communication: Discussed with family at bedside
Disposition: CTA chest pending
Total time spent on today�s encounter was 75 minutes which included time spent in counseling the patient/family regarding diagnosis and treatment plan as listed above, goals of care, and symptom management. Case was discussed with nursing staff,
specialists, and care coordinators/case management. All labs and imaging personally reviewed by me. Remainder the time spent in detailed review of previous records, lab data, imaging, and other medical provider documentation.
Original Note:
Family Physician
-
Family Physician: NO INTERVIEW UNKNOWN
Chief Complaint
-
found unresponsive.
History of Present Illness
85-year-old female with past medical history for CVA, chron's disease presents for department due to being found unresponsive by family just prior to arrival. denied MINOR, dizzy or syncope. denied fever, chills, chest pain. she has LE edema which is
chornic as per family. denied dysuria or hematuria.
She had paraesophageal hernia repair this past week at [facility]. She was taken off of her Eliquis for her atrial fibrillation, and has not yet restarted it. She took OxyContin at about 10:30 AM. Her oxygenation was 40% on room
air upon EMS arrival.
Patient is requiring high flow oxygen. Lasix ordered in ER. Admitting for further management
Medical History
Past Medical History
Past Medical History: Reports Other
Additional Past Medical History:
Normocytic anemia, hiatal hernia, diverticulosis of large
, Cold disease, iron deficiency anemia, A-fib, GERD, breast cancer, skin cancer, hyperlipidemia, hypertension, paroxysmal A-fib, patent [place], obesity, reflux
Past Surgical History: Reports Other
Additional Past Surgical History:
Lumpectomy, Mohs surgery, total hip replacement surgery, septoplasty
Social History
Tobacco: Non-smoker
Alcohol: None
Drug: None
Family History
Family History: Not pertinent
Allergies / Home Medications
Allergies reflects when Allergies were last updated in [facility].
Home Medications with original date entered in [facility]
Allergy/Medication List:
Allergies
Allergy/AdvReac Type Severity Reaction Status Date / Time
No Known Allergies Allergy Verified 10/08/24 08:07
Home Medications
pantoprazole 40 mg tablet,delayed release 40 mg PO DAILY Gastrointestinal issue 03/13/20
alprazolam 1 mg tablet 1 mg PO HS Mental Health/Anxiety 09/05/22
apixaban 5 mg tablet (Eliquis) 5 mg PO BID Blood clot prevention/tx 09/05/22
atorvastatin 40 mg tablet 40 mg PO HS High cholesterol 09/05/22
risankizumab-rzaa 360 mg/2.4 mL (150 mg/mL) subcut wearable injector (Skyrizi) 360 mg SC Q6W Crohn's disease 08/12/23
denosumab 60 mg/mL subcutaneous syringe (Prolia) 60 mg SC [id number] Autoimmune Disorder 10/08/24
metoprolol succinate 25 mg tablet,extended release 24 hr 25 mg PO BID Heart Failure #60 tabs 10/14/24
acetaminophen 500 mg tablet 500 mg PO Q6H PRN mild pain 05/13/25
furosemide 40 mg tablet (Lasix) 40 mg PO DAILYPRN PRN Heart Failure 05/13/25
oxycodone 5 mg tablet 5 mg PO Q4HPRN PRN severe pain 05/13/25
potassium chloride 20 mEq tablet,extended release(part/cryst) 20 meq PO DAILYPRN PRN Electrolyte Repletion 05/13/25
Review of Systems
-
Constitutional: Reports No Symptoms
EENT: Reports No Symptoms
Respiratory: Reports Trouble Breathing
Cardiac: Reports No Symptoms
Abdomen/GI: Reports No Symptoms
: Reports No Symptoms
Musculoskeletal: Reports Edema
Skin: Reports No Symptoms
Neurological: Reports No Symptoms
Endocrine: Reports No Symptoms
Hematologic/Lymphatic: Reports No Symptoms
Psych: Reports No Symptoms
Physical Exam
Vital Signs
Vital Signs
Temp Pulse Resp BP Pulse Ox
97.7 F 92 10 116/69 100
05/13/25 14:36 05/13/25 15:00 05/13/25 15:00 05/13/25 14:30 05/13/25 15:00
Physical Exam
General: Well Developed, Well Nourished and No Apparent Distress
HEENT: NormoCephalic, Moist mucous membranes and Atraumatic
Respiratory: Rales
Cardiac: S1/S2 and Regular Rhythm; No Murmur or Rub
GI: Soft, Non Tender, Non Distended and Normal Bowel Sounds; No Organomegaly
Rectal: Deferred by Provider
Musculoskeletal: No Clubbing, No Cyanosis and Other (Bilateral lower extremities edema)
Skin: No Rash
Neuro: Nonfocal/grossly intact
Psych: Calm
Laboratory Results
-
05/13/25 12:58
Laboratory Results
PT 14.8 Sec (11.4-14.6) H 05/13/25 12:58
INR 1.18 05/13/25 12:58
APTT 42.6 Sec (23.4-35.0) H 05/13/25 12:58
Total Bilirubin Cancelled 05/13/25 14:11
AST Cancelled 05/13/25 14:11
ALT Cancelled 05/13/25 14:11
Alkaline Phosphatase Cancelled 05/13/25 14:11
Troponin I 0.103 ng/ml H* 05/13/25 12:58
Data Reviewed
-
Diagnostic Radiology: Report Reviewed by me
CT Scan: Report Reviewed by me
Lab Data: Labs Reviewed by me
Impression/Plan
-
# Acute metabolic encephalopathy/acute hypoxic respiratory failure concern for CHF exacerbation
-Patient is on high flow oxygen, continue supplemental oxygen to keep sat greater than 95, wean as tolerated
- Diuretics continued as per cardiology
- Strict MAIN, daily weight, fluid restrict
- Obtain echocardiogram
- Cardiology consulted
- BNP 21 800
-Obtain CT of chest
- Chest x-ray with impression of There is elevation of the left hemidiaphragm. There is an air collection under the diaphragm which is likely related to an elevated gastric bubble. There has been recent paraesophageal hernia surgery which could be
the etiology of the extensive subcutaneous emphysema. Are there any postop images for comparison?There is airspace disease in the right lower lobe which is likely atelectasis
# Metabolic encephalopathy ruled out CVA
- CTA with impression of No evidence of large vessel occlusion, or arterial dissection.
2. Extensive subcutaneous emphysema within the soft tissues of the head and neck, retropharyngeal space, and mediastinum. No apical pneumothorax on either side.
3. Small bilateral pleural effusions.
4. 2 cm right thyroid nodule. Consider nonemergent thyroid ultrasound for further characterization.
- Head CT with impression of here are moderate changes of cortical atrophy and chronic ischemic disease.
2. There is an old infarct in the left cerebellum
3. There is extensive subcutaneous emphysema in the soft tissues of the neck. Chest x-ray is recommended
- Patient was evaluated by neurology, recommended laryngeal check of MRI brain with and without contrast
# Acute hyponatremia/hypocalcemia secondary to fluid overload
# CKD stage IIIb
-fluid restriction, diuretics
- Nephrology consulted
# Recent paraesophageal hernia repair
# Known subcutaneous emphysema
- Hold oxy
# Anemia of chronic disease
- Hemoglobin stable at 11.2, no active bleeding
- Continue to monitor
# Troponin elevation likely NSTEMI in setting of CHF exacerbation
- Troponin 0.103, continue to trend Trope
- EKG was sinus tachycardia
#paroxysmal atrial fibrillation
- Eliquis on hold
- Continue metoprolol
#Crohn's disease
- On Skyrizi
#History of diverticulosis
#Breast cancer
#Skin cancer
#Hyperlipidemia
- Continue statin
#GERD
- Continue Protonix
#Anxiety
- Continue alprazolam
Full code
DVT prophylaxis�scd
[2025-05-13] MEDS: LASIX 40 MG IV (15:49)
--- NOTE | 2025-05-13 16:46 | W.CON.NEPH ---
Consultation
-
Date/Time Consultation Requested: 05/13/2025 at 1:00 p.m.
Date/Time Consultation Performed: 05/13/2025 at 4:00 p.m.
Requesting Provider: Dr. Garrett
Performing Provider: Dr. Huffman
Reason for Consultation: hyponatremia
Medical History
-
Chief Complaint: hyponatremia
History of Present Illness:
85-year-old female with past medical history for CVA, chron's disease presents for department due to being found unresponsive by family just prior to arrival. she has LE edema which is chornic as per family. history was obtained via her son who
was interviewed in the waiting room.
She had paraesophageal hernia repair this past week at [facility]. She was taken off of her Eliquis for her atrial fibrillation, and has not yet restarted it. She took OxyContin at about 10:30 AM. Her oxygenation was 40% on room
air upon EMS arrival.
She usually takes 40 mg of Lasix but family noticed more swelling this morning so she took 80 mg of Lasix. Prior to this event this morning she was her usual self eating a little bit last but alert as of this morning.
Currently requiring high flow oxygen with emphysematous changes on imaging. Lasix 40 mg IV given by the ER as discussed with Dr. Garrett
Her son told me that her sodium was 132 upon discharge from [place] and gave her IV diuretics for that ultimately discharged.
renal consultation requested for the hyponatremia of 126. No history of hyponatremia
Past Medical History
CVA, chron's disease
Social History
Tobacco: Non-Smoker
Alcohol: None
Family History
Family History: Not Pertinent
Allergies / Home Medications
Allergy/AdvReac Type Severity Reaction Status Date / Time
No Known Allergies Allergy Verified 10/08/24 08:07
�Medication �Instructions �Recorded �Confirmed �Type
pantoprazole 40 mg tablet,delayed 40 mg PO DAILY Gastrointestinal 03/13/20 05/13/25 History
release issue
alprazolam 1 mg tablet 1 mg PO HS Mental Health/Anxiety 09/05/22 05/13/25 History
apixaban 5 mg tablet (Eliquis) 5 mg PO BID Blood clot 09/05/22 05/13/25 History
prevention/tx
atorvastatin 40 mg tablet 40 mg PO HS High cholesterol 09/05/22 05/13/25 History
risankizumab-rzaa 360 mg/2.4 mL 360 mg SC Q6W Crohn's disease 08/12/23 05/13/25 History
(150 mg/mL) subcut wearable
injector (Skyrizi)
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
syringe (Prolia) Disorder
metoprolol succinate 25 mg 25 mg PO BID Heart Failure #60 tabs 10/14/24 05/13/25 Rx
tablet,extended release 24 hr
acetaminophen 500 mg tablet 500 mg PO Q6H PRN mild pain 05/13/25 05/13/25 History
furosemide 40 mg tablet (Lasix) 40 mg PO DAILYPRN PRN Heart Failure 05/13/25 05/13/25 History
oxycodone 5 mg tablet 5 mg PO Q4HPRN PRN severe pain 05/13/25 05/13/25 History
potassium chloride 20 mEq 20 meq PO DAILYPRN PRN Electrolyte 05/13/25 05/13/25 History
tablet,extended release(part/cryst) Repletion
Review of Systems
-
Unable to obtain full review of systems at this time due to: Acuity
Physical Exam
Vital Signs
Vital Signs
Temp Pulse Resp BP Pulse Ox
97.7 F 85 15 112/75 99
05/13/25 14:36 05/13/25 15:49 05/13/25 15:45 05/13/25 15:49 05/13/25 16:15
Lab Results
WBC 6.1 10^3/uL (4.8-10.8) 05/13/25 12:58
RBC 4.00 10^6/uL (4.20-5.40) L 05/13/25 12:58
Hgb 11.2 g/dL (12.0-16.0) L 05/13/25 12:58
Hct 35.1 % (37.0-47.0) L 05/13/25 12:58
Plt Count 165 10^3/uL (130-400) 05/13/25 12:58
eGFR 43.81 05/13/25 14:11
Rmg-T-Lhqbrzqerce Pept 26861 pg/ml 05/13/25 23:50
Physical Exam
General no acute distress
HEENT no cephalic atraumatic extraocular muscle intact no scleral icterus no JVD neck supple
lungs coarse breath sounds
heart regular S1-S2 positive ectopy
abdomen soft nontender positive bowel sounds
extremities no edema pulses present bilateral
Neurologically nonfocal
Skin no lesions no abrasions no petechiae
Psych normal affect no bizarre behavior
Data Reviewed
-
Radiology: Image Personally Visualized and interpreted
CT Scan: Image Personally Visualized and interpreted
Assessment/Plan
-
presents for department due to being found unresponsive by family just prior to arrival. she has LE edema which is chornic as per family. history was obtained via her son who was interviewed in the waiting room.
had paraesophageal hernia repair this past week at [facility]. She was taken off of her Eliquis for her atrial fibrillation, and has not yet restarted it. She took OxyContin at about 10:30 AM. Her oxygenation was 40% on room air
upon EMS arrival.
She usually takes 40 mg of Lasix but family noticed more swelling this morning so she took 80 mg of Lasix. Prior to this event this morning she was her usual self eating a little bit last but alert as of this morning.
renal consultation requested for the hyponatremia of 123. No history of hyponatremia
impression
hyponatremia at 123 with altered mental status in the setting of hypoxia
hypocalcemia
chronic kidney disease stage IIIB based on creatinine 1.1 -1.2
emphysema on imaging
CHF with preserved EF as of 2024
atrial fibrillation
Plan
IV diuretics
fluid restrict
check urine indices
suggest Cabral catheter
and check albumin and replete calcium if indicated with correction for albumin as needed
high-flow oxygen
repeat labs this evening
neurology and cardiology noted
--- NOTE | 2025-05-13 18:17 | PTCARENOTE ---
Patient arrived to unit via stretcher. AAOX3. Family present and staying with patient. Language line in room . Patient speaks Jordanian but mainly Nepali. High flow [address] and sating 99%. No signs of distress note at this time. Oriented to unit.
Call bautista within reach.
[2025-05-13 18:42] LABS: ALT (SGPT) 110 U/L (0-35); AST (SGOT) 48 U/L (14-36); Albumin 2.9 g/dl (3.5-5.0); Alkaline Phosphatase 63 U/L (38-126); Blood Urea Nitrogen 24 mg/dl (7-17); Calcium 6.1 mg/dl (8.4-10.2); Carbon Dioxide 26 mmol/L (22-30); Chloride 92 mmol/L (98-107); Glucose 81 mg/dl (70-99); Potassium 4.9 mmol/L (3.5-5.1); Sodium 123 mmol/L (135-145); Total Protein 5.8 g/dl (6.3-8.2); eGFR 39.80
[2025-05-13 18:49] LABS: Troponin I 0.171 ng/ml
[2025-05-13] MEDS: CALCIUM GLUCONATE 100 IV (20:35)
[2025-05-13] MEDS: TOPROL XL 25 MG PO (21:31)
[2025-05-13] MEDS: XANAX 1 MG PO (21:31)
[2025-05-13] MEDS: LIPITOR 40 MG PO (21:31)
[2025-05-14] VITALS (16 sets, daily range): BP systolic 113–138; BP diastolic 64–89; PULSE 94–97; O2SAT 98
[2025-05-14 00:42] LABS: Troponin I 0.197 ng/ml
--- NOTE | 2025-05-14 01:06 | PTCARENOTE ---
transitioned patient from HFNC to 7L Midflow. Patient sating 99% on the 7L. Patient family at bedside. NSR on monitor. AAOx3. Assessment and vital signs as charted. call bautista in reach.
[2025-05-14] MEDS: DULCOLAX 10 MG RECTAL (02:28)
[2025-05-14 06:20] LABS: Hematocrit 33.1 % (37.0-47.0); Hemoglobin 10.7 g/dL (12.0-16.0); Mean Corp Hgb Conc. 32.3 g/dL (33.0-37.0); Mean Corpuscular Volume 87.8 fL (81.0-99.0); Platelet Count 174 10^3/uL (130-400); Red Cell Dist. Width 15.3 % (11.5-14.5)
[2025-05-14 06:41] LABS: Troponin I 0.168 ng/ml
[2025-05-14 07:31] LABS: Blood Urea Nitrogen 20 mg/dl (7-17); Calcium 6.8 mg/dl (8.4-10.2); Carbon Dioxide 27 mmol/L (22-30); Chloride 95 mmol/L (98-107); Glucose 80 mg/dl (70-99); HDL Cholesterol 46 mg/dl; LDL Cholesterol, Calculated 103 mg/dl; Magnesium 1.8 mg/dl (1.6-2.3); Potassium 3.7 mmol/L (3.5-5.1); Sodium 129 mmol/L (135-145); Very Low Density Lipoprotein 32 mg/dl (0-30); eGFR 54.53
[2025-05-14] MEDS: TOPROL XL 25 MG PO ×2 (07:52→21:04)
[2025-05-14] MEDS: PROTONIX 40 MG PO (07:52)
--- NOTE | 2025-05-14 08:40 | W.PN.NEURO.1 ---
Addendum entered and electronically signed by Luis Pritchard MD 05/14/25 10:03:
Studies reviewed.
I have personally examined the patient. I reviewed and agree with the HUMAN RESOURCES FILE CLERK's Note.
My addenda:
Awake, alert, interactive. No acute distress.
Speech intact.
Follows 2-step requests w/ difficulty. No tremor.
Extra-ocular movements grossly intact.
Facial movements full and symmetric. Hearing intact to normal conversational volume.
Normal UE movements bilaterally.
Neck: full ROM.
Chest: no dyspnea
Heart: no JVD
Ext: (-) Clubbing, (-) Cyanosis, (-) Edema
IMPRESSIONS/RECOMMENDATIONS:
Abrupt onset of change in mental status
Most likely toxic metabolic in nature with the patient having significant hypoxemia prior to presentation
When possible, and patient is stable, MRI of brain without contrast
Continue patient's usual apixaban
Advance atorvastatin from 40 mg to 80 mg due to LDL greater than 70
Check blood work potential metabolic causes for cognitive issues underlying
D/W patient / family
All questions answered.
Will continue to follow pending results.
Original Note:
Today's Communication / Plan
-
-obtain brain MRI as planned when able for completeness
-resume Eliquis and continue atorvastatin for secondary stroke prevention
-ensure adequate oxygenation and supportive care
-continue to monitor for electrolyte abnormalities
Neuro Assessment/Plan
Assessment
This is an 85-year-old female with past medical history of afib currently off anticoagulation for recent hernia repair, who has presented to the hospital on 05/13/25 with report of unresponsiveness.
Head CT 05/13/25:
1. There are moderate changes of cortical atrophy and chronic ischemic disease.
2. There is an old infarct in the left cerebellum
3. There is extensive subcutaneous emphysema in the soft tissues of the neck. Chest x-ray is recommended
Head/neck CTA 05/13/25:
1. No evidence of large vessel occlusion, or arterial dissection.
2. Extensive subcutaneous emphysema within the soft tissues of the head and neck, retropharyngeal space, and mediastinum. No apical pneumothorax on either side.
3. Small bilateral pleural effusions.
4. 2 cm right thyroid nodule. Consider nonemergent thyroid ultrasound for further characterization.
IMPRESSIONS/RECOMMENDATIONS:
Abrupt onset of change in mental status
Based on CT of head, CTA and CT perfusion as well as examination, less likely this is secondary to stroke and more likely due to toxic metabolic encephalopathy and hypoxemia as patient notes no more confusion today and back to baseline.
Plan
-obtain brain MRI as planned when able for completeness
-resume Eliquis and continue atorvastatin for secondary stroke prevention
-ensure adequate oxygenation and supportive care
-continue to monitor for electrolyte abnormalities
All questions encouraged and answered, plan of care discussed with Dr. Pritchard, patient and family
Subjective/Objective
Subjective Data
Date of Service: May 14, 2025
No acute overnight events. Patient awake, alert and oriented. Feels a little better, states her abdomen is painful. Currently denies confusion, denies vision changes.
Objective Data
Vital Signs
Temp Pulse Resp BP Pulse Ox
98.0 F 96 18 134/77 97
05/14/25 02:37 05/14/25 05:30 05/14/25 05:30 05/14/25 04:00 05/14/25 05:30
Lab Results
05/14/25 05:41
05/14/25 05:41
PT 14.8 Sec (11.4-14.6) H 05/13/25 12:58
INR 1.18 05/13/25 12:58
APTT 42.6 Sec (23.4-35.0) H 05/13/25 12:58
Sodium 129 mmol/L (135-145) L 05/14/25 05:41
Potassium 3.7 mmol/L (3.5-5.1) 05/14/25 05:41
BUN 20 mg/dl (7-17) H 05/14/25 05:41
Glucose 80 mg/dl (70-99) 05/14/25 05:41
Calcium 6.8 mg/dl (8.4-10.2) L* 05/14/25 05:41
Edp-S-Hqhbmhqostt Pept 38578 pg/ml 05/13/25 23:50
LDL Cholesterol, Calc 103 mg/dl 05/14/25 05:41
Patient Allergies
No Known Allergies Allergy (Verified 10/08/24 08:07)
Physical Exam
-
General: Comfortable
HEENT: Normocephalic and Atraumatic
Neck: Full Range of Motion
Respiratory: No Dyspnea
Cardiac: No JVD
Extremities: No Clubbing, No Cyanosis and No Edema
Psych: Unremarkable
Extended Neurological Exam
Mood & Affect: Mood Unremarkable
Attention Span & Concentration: Awake, Alert and Interactive
Memory: Unremarkable
Speech: Quality Unremarkable and Quantity Unremarkable
Cranial Nerves III, IV, : Extraocular Movement: Extraocular Movement Full in all Directions
Cranial Nerve VII: Facial Symmetry: Normal Facial Symmetry
Cranial Nerve VIII: Hearing: Unremarkable Hearing to Normal Conversational Volume
Muscle Strength, Overall: Full Throughout
Pronator Drift: No Drift in Upper Extremities and No Drift in Lower Extremities
Touch Sensation: Unremarkable and Double Simultaneous Stimulation Unremarkable
Coordination: Qriwkr-eqgk-phmyfx Testing Unremarkable
Data Reviewed
-
CT-A: Report Reviewed and Image Reviewed
CT-Perfusion: Report Reviewed and Image Reviewed
CT Head: Report Reviewed and Image Reviewed
MRI Head: Ordered
Medical Test Reports: Report Reviewed
Labs: Report Reviewed
Reviewed with: Physician, Patient and Family
Old Records: Summarized
--- NOTE | 2025-05-14 09:11 | CON.PUL ---
Addendum entered and electronically signed by Elvie Whitt, 05/14/25 13:32:
Gen surg eval- planning for Gastrografin study
If there is demonstration of communication/leak, would add abx
Original Note:
Consultation
Consultation Request
Date/Time Consultation Requested: 05/14/25
Date/Time Consultation Performed: 05/14/25
Performing Provider: Peri
Reason for Consultation: hypoxemia
Medical History
-
History of Present Illness:
85-year-old female with prior history of CVA, Crohn's disease, A-fib on Eliquis presents to ER for being found unresponsive by family just prior to arrival. She was recently admitted at [facility] for paraesophageal hernia repair,
taken off her Eliquis for procedure. On arrival to ER her O2 malachi was 40%, she was placed on high flow nasal cannula. CT imaging demonstrating extensive subcutaneous emphysema as well as prominent pneumomediastinum, 2 gas containing foci within
the posterior mediastinum suggesting distal esophageal injury, moderate bilateral pleural effusions with collapse of the lower lobe.
No known prior history of lung disease, she does not follow with outpatient pulmonary.
Past Medical History
Past Medical History: Other (see list below)
Social History
Tobacco: Non-smoker
Alcohol: None
Drug: None
Allergies / Home Medications
Allergies
Allergy/AdvReac Type Severity Reaction Status Date / Time
No Known Allergies Allergy Verified 10/08/24 08:07
Home Medications
�Medication �Instructions �Recorded �Confirmed �Last Taken �Type
pantoprazole 40 mg tablet,delayed 40 mg PO DAILY Gastrointestinal 03/13/20 05/13/25 10/07/24 History
release issue
alprazolam 1 mg tablet 1 mg PO HS Mental Health/Anxiety 09/05/22 05/13/25 10/07/24 History
apixaban 5 mg tablet (Eliquis) 5 mg PO BID Blood clot 09/05/22 05/13/25 05/05/25 History
prevention/tx
atorvastatin 40 mg tablet 40 mg PO HS High cholesterol 09/05/22 05/13/25 10/08/24 History
risankizumab-rzaa 360 mg/2.4 mL 360 mg SC Q6W Crohn's disease 08/12/23 05/13/25 3 Weeks Ago History
(150 mg/mL) subcut wearable ~07/22/23
injector (Skyrizi)
denosumab 60 mg/mL subcutaneous 60 mg SC [id number] Autoimmune 10/08/24 05/13/25 Unknown History
syringe (Prolia) Disorder
metoprolol succinate 25 mg 25 mg PO BID Heart Failure #60 tabs 10/14/24 05/13/25 Unknown Rx
tablet,extended release 24 hr
acetaminophen 500 mg tablet 500 mg PO Q6H PRN mild pain 05/13/25 05/13/25 05/12/25 History
furosemide 40 mg tablet (Lasix) 40 mg PO DAILYPRN PRN Heart Failure 05/13/25 05/13/25 05/12/25 History
oxycodone 5 mg tablet 5 mg PO Q4HPRN PRN severe pain 05/13/25 05/13/25 05/12/25 History
potassium chloride 20 mEq 20 meq PO DAILYPRN PRN Electrolyte 05/13/25 05/13/25 Unknown History
tablet,extended release(part/cryst) Repletion
Review of Systems
-
History Source: Patient
All other systems: Negative unless noted
Vitals / Labs / Diagnostic Testing
Vital Signs
Temp Pulse Resp BP Pulse Ox
98.5 F 96 18 134/77 97
05/14/25 07:09 05/14/25 05:30 05/14/25 05:30 05/14/25 04:00 05/14/25 05:30
Lab Data
05/14/25 05:41
05/14/25 05:41
Laboratory Results
05/13/25
12:58
PT 14.8 H
INR 1.18
APTT 42.6 H
Diagnostic Testing:
Physical Exam
-
HEENT: Normocephalic, Anicteric, Moist Mucous Membranes and Other (crepitus throughout chest and neck)
Cardiovascular: S1/S2 and Regular Rhythm
Respiratory: Clear and Non-Labored Respirations
GI: Soft, Non Distended and Non Tender
Neurology: Awake, Alert, Oriented and No Motor Deficits
Skin: Warm, Dry and Good Color
General: Comfortable and Other (NAD)
Assessment
-
85-year-old female with prior history of CVA, Crohn's disease, A-fib on Eliquis presents to ER for being found unresponsive by family just prior to arrival. She was recently admitted at [facility] for paraesophageal hernia repair,
taken off her Eliquis for procedure. On arrival to ER her O2 malachi was 40%, she was placed on high flow nasal cannula. CT imaging demonstrating extensive subcutaneous emphysema as well as prominent pneumomediastinum, 2 gas containing foci within
the posterior mediastinum suggesting distal esophageal injury, moderate bilateral pleural effusions with collapse of the lower lobe. Admitted to IMU, we are consulted for evaluation.
Acute hypoxic respiratory failure
Pneumomediastinum, subcutaneous emphysema
Suspect perforated esophageal injury with 2 gas containing foci
Status post recent paraesophageal hernia repair
Moderate bilateral pleural effusions, likely acute on chronic heart failure
Conditions present prior to admission
breast cancer s/p lumpectomy
Crohn's disease
skin cancer bcc nose/MOHS
Hyperlipidemia
HTN
GERD with large hiatal hernia
Iron def anemia
Paroxysmal atrial fibrillation on Eliquis
Patent foramen ovale
Obesity
Total hip replacement surgery after fall, left 12/2021
Septoplasty
History of GI Bleed 2019
[facility] - heart failure 10/08-
Plan
Hypoxemia noted on arrival, placed on HFNC, now transitioned to 7L midflow
No oxygen was needed at baseline, home
Home O2 evaluation eventually
Prior history of lung disease is NOT noted--nonsmoker
No PFTs in past for review
Suspect patient has postoperative changes from recent paraesophageal hernia repair
She has diffuse severe subcutaneous emphysema, pneumomediastinum, small pneumothorax-this was reviewed in detail with family
Care team has communicated with surgeon at [facility], this was felt to be expected postoperative changes
There is concern for possible communication between esophagus and lungs, would empirically cover with antibiotics
We will repeat CT imaging this weekend to follow
Low threshold for transfer if she were to clinically deteriorate
Pleural effusions are noted, daughter states that she has had chronic subacute heart failure, lower extremity edema prior to this event
She takes Lasix at home
She is resumed on IV Lasix here
Prior ECHO results are reviewed indicating stable function
Case discussed with care team
Will need outpatient pulmonary evaluation for PFTs and 6MWT
We will follow
Diagnostic Data
Chest X-Ray: 05/13/25-There is elevation of the left hemidiaphragm. There is an air collection under the diaphragm which is likely related to an elevated gastric bubble. There has been recent paraesophageal hernia surgery which could be the etiology
of the extensive subcutaneous emphysema.
CT Scan: 05/13/25-1. No evidence of pulmonary embolism.
2. There is extensive subcutaneous emphysema as well as prominent pneumomediastinum. There are 2 gas containing foci within the posterior mediastinum adjacent to the distal esophagus which raises the possibility of distal esophageal injury as the
etiology of the pneumomediastinum. Consider direct visualization for further evaluation.
3. Moderate bilateral pleural effusions with partial collapse of the left lower lobe and adjacent atelectasis within the right lower lobe.
4. Trace right apical pneumothorax.
Echo: 04/26/25-1. Normal left ventricular chamber size myocardial thickness and systolic function. Left ventricular ejection fraction 55 to 60%.
2. Mild tricuspid regurgitation.
3. Trivial pericardial effusion is present.
4. Technically fair study.
5. Compared to previous echo from September 2024, findings are similar.
10/09/24- Normal left ventricular size, wall thickness and systolic function with normal regional wall motion Left ventricular ejection fraction visually estimated 60-65% Normal RV size and systolic function Thickened mitral valve leaflets with no
significant mitral regurgitation Trileaflet, mildly sclerotic aortic valve without stenosis. No significant aortic regurgitation. Mild tricuspid regurgitation
Estimated pulmonary artery pressure of 42-45 mmHg. Assuming a right atrial pressure of 5-8 mmHg. Trivial pericardial effusion Compared to prior study dated 04/21/2024, LV systolic function is preserved/vigorous. Pulmonary pressures slightly
increased compared to prior, previously estimated 25 mmHg.
PFT's:
Reports and relevant images were personally reviewed.
Total time spent on this consultation __75__ minutes which includes review of history, physical exam, medications, laboratory data, personal review of imaging, extensive review of outpatient records, discussion with care team and respiratory therapy.
[2025-05-14 09:16] LABS: Urine Character Slightly Cloudy (Clear)
--- NOTE | 2025-05-14 09:46 | W.PN.CARDCBS ---
Today's Communication / Plan
-
Continue IV Lasix
Wean oxygen
Check echo
Add back Eliquis if no further surgical procedures are planned
Impression / Plan
-
PCP: Dr. Johan Cunningham
Card: Dr. Erica Barrett
Impression:
Presented to the ER with abrupt change in mental status and hypoxia 05/13/2025
Recent admission for paraesophageal hernia repair at [facility] 05/10/2025 until 05/11/2025
Recent admission for acute HF 10/08/2024 until 10/14/2024
Acute hypoxic respiratory failure
Change in mental status
Elevated troponin
Acute HFpEF
Acute on chronic B/L LE edema
Hyponatremia
Hypocalcemia
h/o Hypoalbuminemia
Paroxysmal Afib
Chronic Eliquis OAC
Last dose 05/05/2025 due to paraesophageal hernia repair surgery 05/10/2025
h/o CVA by MRI in [place] 2021
Hyperlipidemia
Crohn's disease
Anemia
Lexiscan nuclear stress test 05/03/2025: Perfusion imaging reveals a small area of moderately to severely decreased counts in the apex, at rest defect remains predominantly fixed consistent with likely soft tissue attenuation, EF 57%
Echo 04/21/2024: EF 55-60%, mild MR, thickened aortic valve leaflets with normal excursion
Echo 10/09/2024: EF 60 to 65%. Mild TR. PAP 42 to 45 mmHg
Echo 04/26/2025: EF 55 to 60%, mild TR, trivial pericardial effusion, unchanged from echo 09/2024
Echo 05/13/2025: Follow-up study, study pending
Plan:
Patient presents with altered mental status, hypoxia and significant electrolyte derangement following recent paraesophageal hernia repair (05/10/25) and now presents in acute heart failure
Continue IV lasix 40 mg BID
Follows daily weight, renal function/lytes
Wean O2 as able
Repeat echo - previously LVEF was 55-60%
Troponin peaked at 0.197. Would not trend further.
No complaints of chest pain. No ischemic changes on ECG.
Suspect nonischemic myocardial injury troponin elevation
Patient has a history of paroxysmal A-fib, but currently in sinus rhythm
Would continue home metoprolol
Resume Eliquis if no further surgical procedures are planned
Discussed with daughter at bedside, son via speaker phone and nursing
Patient presents to the ER today with hypoxia and change in mental status and cardiology is consulted for possible acute HF. Patient was last seen in the office on 12/30/2024 and at that time appeared stable on a regimen of Lasix 40 mg daily
according to medication reconciliation list in the office, but patient family reports dosing was more like 3 times a week. Patient has chronic LE edema. Last admission for heart failure was 09/2024 and at that point patient diuresed to a dry weight
of 147lbs. In the interim patient saw a surgeon at [facility] and was offered paraesophageal hernia repair surgery. Patient had preoperative Lexiscan nuclear stress test on 05/03/2025 that was negative for ischemia. Patient had echocardiogram 04/26/2025
that showed preserved EF without significant valve disease. Patient's surgeon told her to stop Eliquis on 05/05/2025 and patient has surgery on 05/10/2025 at [facility]. Patient's family reports surgery was considered a success and patient has had
symptomatic improvement. Patient has been following a liquid diet and was able to return home on 05/11/2025. Family has been with the patient at all times and this morning she awoke in her usual state of health, ate some Jell-O took a pain
medication and then lay down to take a nap. The patient's son checked on her at around 930 and the patient was unresponsive and did not awaken easily and 911 was called. Patient was noted to be hypoxic at 40% on room air and supplemental oxygen
therapy was started. In the emergency room initially patient was responsive to pain with palpation of the abdomen. CT of the head without acute intracranial abnormality and neurology saw the patient for possible stroke alert, but they do not feel
patient's presentation is consistent with CVA. Additional labs then returned including a proBNP of 21,800 which is her highest level on record and CT of the chest suggested small B/L pleural effusions. Patient was ordered Lasix 40 mg IV by ER
attending, but has yet to receive that dose. Sodium level was 123 initially.
Progress Note - Order Manager
Subjective
Date of Service: May 14, 2025
No acute overnight events. Awake and alert today out of bed to chair. Tells me that her breathing is comfortable. No chest discomfort. Biggest issue is constipation she is yet to have a bowel movement here. Also asking to have her diet advanced
from clears.
Objective
Labs:
05/14/25 05:41
05/14/25 05:41
Labs
Hgb 10.7 g/dL (12.0-16.0) L 05/14/25 05:41
Hct 33.1 % (37.0-47.0) L 05/14/25 05:41
Plt Count 174 10^3/uL (130-400) 05/14/25 05:41
PT 14.8 Sec (11.4-14.6) H 05/13/25 12:58
INR 1.18 05/13/25 12:58
APTT 42.6 Sec (23.4-35.0) H 05/13/25 12:58
Sodium 129 mmol/L (135-145) L 05/14/25 05:41
Potassium 3.7 mmol/L (3.5-5.1) 05/14/25 05:41
BUN 20 mg/dl (7-17) H 05/14/25 05:41
Creatinine 1.0 mg/dL (0.6-1.0) 05/14/25 05:41
Glucose 80 mg/dl (70-99) 05/14/25 05:41
Troponins
05/13/25 05/13/25 05/13/25
12:58 18:06 23:46
Troponin I 0.103 H* 0.171 H* D 0.197 H*
05/14/25
05:41
Troponin I 0.168 H*
Vital Signs and I&O:
Vital Signs
Temp Pulse Resp BP Pulse Ox
98.5 F 96 18 134/77 97
05/14/25 07:09 05/14/25 05:30 05/14/25 05:30 05/14/25 04:00 05/14/25 05:30
Vital Signs
Temp Pulse Resp BP Pulse Ox
98.5 F 96 18 134/77 97
05/14/25 07:09 05/14/25 05:30 05/14/25 05:30 05/14/25 04:00 05/14/25 05:30
Intake & Output
05/12/25 05/13/25 05/14/25 05/15/25
06:59 06:59 06:59 06:59
Output Total 2700 / 2700
Balance -2700 / -2700
Physical Exam
Physical Exam
Gen: NAD, AA. OOB to chair
HEENT: NC/AT, sclera anicteric
Neck: No JVD
CV: RRR, NL s1/s2
Lungs: CTAB on 4L NC
Abd: Hyperactive bowel sounds
Ext: Nonpitting LE edema
Skin: Warm, dry
Neuro: Non-focal
[2025-05-14] MEDS: LASIX 40 MG IV ×2 (10:28→17:11)
--- NOTE | 2025-05-14 10:57 | CM ---
I.A: Completed By ZAC Espinosa.
Patient lives alone in a [facility] with 0 STI. DME: uses rolling walker, on O2 at home at 2 Liters, No other DME, Outpatient in the past, No VN/PT, No STR.
Patient gets SOFTWARE [employer] 5 days a week 8 hours a day.
PCP: Dr. Maris Salazar
Pharm: [facility]
Patient has transport when ready. PLAN: Home VN vs. SNF.
--- NOTE | 2025-05-14 11:19 | W.PN.NEPH.PH ---
Today's Communication / Plan
-
replete calcium
Assessment/Plan
-
Impression
hyponatremia at 123 with altered mental status in the setting of hypoxia
hypocalcemia
chronic kidney disease stage IIIB based on creatinine 1.1 -1.2
emphysema on imaging
CHF with preserved EF as of 2024
atrial fibrillation
Plan
continue IV diuretics
follow BMP
replete Calcium IV
-
-
Date of Service: May 14, 2025
CC / HPI / ROS
-
Chief Complaint:
hyponatremia
History of Present Illness:
Na up to 129
Calcium low 6.8
CR stable 1.0
BP stable
diuresing well with IV lasix for decompensated HFpEF
Review of Systems:
no CP/SOB
Labs
-
Labs:
WBC 4.4 10^3/uL (4.8-10.8) L 05/14/25 05:41
RBC 3.77 10^6/uL (4.20-5.40) L 05/14/25 05:41
Hgb 10.7 g/dL (12.0-16.0) L 05/14/25 05:41
Hct 33.1 % (37.0-47.0) L 05/14/25 05:41
Plt Count 174 10^3/uL (130-400) 05/14/25 05:41
Sodium 129 mmol/L (135-145) L 05/14/25 05:41
Potassium 3.7 mmol/L (3.5-5.1) 05/14/25 05:41
Chloride 95 mmol/L (98-107) L 05/14/25 05:41
Carbon Dioxide 27 mmol/L (22-30) 05/14/25 05:41
BUN 20 mg/dl (7-17) H 05/14/25 05:41
Creatinine 1.0 mg/dL (0.6-1.0) 05/14/25 05:41
eGFR 54.53 05/14/25 05:41
Glucose 80 mg/dl (70-99) 05/14/25 05:41
Calcium 6.8 mg/dl (8.4-10.2) L* 05/14/25 05:41
Gov-U-Ynedbtcjdfm Pept 78886 pg/ml 05/13/25 23:50
Albumin 2.9 g/dl (3.5-5.0) L 05/13/25 18:06
Physical Exam
-
Vital Signs:
Vital Signs
Temp Pulse Resp BP Pulse Ox
98.5 F 96 18 134/77 94
05/14/25 07:09 05/14/25 05:30 05/14/25 05:30 05/14/25 04:00 05/14/25 09:56
Cardiovascular:: Regular rate and rhythm
Respiratory:: Bilateral: Coarse
Lung Excursion:: Normal
Abdomen:: Nontender and Soft
Bowel Sounds:: Normal
Extremity Edema:: +3: Bilateral:
--- NOTE | 2025-05-14 11:25 | PTCARENOTE ---
Pt currently on 6L midflow oxygen - SPO2 95%. Pt oob to BSC and chair - assist x 1 w/ rollator from home. Had large loose BM. Still w/ crepitus upper chest, shoulders, neck. Seen by cards, pulm, and hospitalist this morning. Waiting for
surgical consult to determine plan for pneumomediastinum. Family at bedside.
--- NOTE | 2025-05-14 13:00 | W.PN.HOSP.TC ---
Today's Communication/Plan
-
Upper GI series with Gastrografin.
N.p.o. for now.
Resume Eliquis if upper GI series negative.
MRI brain pain
Continue lasix
Assessment / Plan
Assessment / Plan
Impression:
Patient is a [id number] female with past medical history for CVA, chron's disease presents for department due to being found unresponsive by family just prior to arrival. denied MINOR, dizzy or syncope. denied fever, chills, chest pain. she has LE
edema which is chornic as per family. denied dysuria or hematuria.
Patient status post hiatal hernia repair this past week at [facility]. She was taken off of her Eliquis for her atrial fibrillation, and has not yet restarted it. She took OxyContin at about 10:30 AM. Her oxygenation was 40% on
room air upon EMS arrival.
Initially placed on high flow oxygen then weaned down to [address] chest shows:
1. No evidence of pulmonary embolism.
2. There is extensive subcutaneous emphysema as well as prominent pneumomediastinum. There are 2 gas containing foci within the posterior mediastinum adjacent to the distal esophagus which raises the possibility of distal esophageal injury as the
etiology of the pneumomediastinum. Consider direct visualization for further evaluation.
3. Moderate bilateral pleural effusions with partial collapse of the left lower lobe and adjacent atelectasis within the right lower lobe.
4. Trace right apical pneumothorax.
Discussed with surgery at [place] who stated that that could be a normal finding postoperatively but recommending upper GI series with Gastrografin, which is ordered.
Patient seen by pulmonology/cardiology, also nephrology consulted for hyponatremia.
Assessment/plan:
Acute metabolic encephalopathy / Acute hypoxic respiratory failure �secondary to acute on chronic diastolic CHF exacerbation
Patient initially started in the ER on high-flow oxygen; wean down to 6 L
Continue diuretics per cardiology recommendations (Lasix 40 mg IV twice daily)
Strict intake/output monitoring, daily weights, and fluid restriction
Cardiology consulted
Initiate BNP: 21,[address] chest shows no PE
Chest X-ray impression:
Elevation of the left hemidiaphragm
Air collection under diaphragm likely related to elevated gastric bubble
Recent paraesophageal hernia surgery may explain extensive subcutaneous emphysema
Airspace disease in right lower lobe likely atelectasis
Recommend comparison with any postoperative images
Most recent echo 04/26/2025 shows:
1. Normal left ventricular chamber size myocardial thickness and systolic function. Left ventricular ejection fraction 55 to 60%.
2. Mild tricuspid regurgitation.
3. Trivial pericardial effusion is present.
4. Technically fair study.
5. Compared to previous echo from September 2024, findings are similar.
Repeat echocardiogram 05/14
1. Left ventricular ejection fraction is normal with an ejection fraction of 54 % by Kirby's biplane method of discs.
2. Right ventricular size and systolic function are within normal limits.
3. Aortic sclerosis without stenosis.
4. Mild tricuspid regurgitation. Estimated pulmonary artery pressure of 34 mmHg assuming a right atrial pressure of 8 mmHg.
5. Compared to prior study dated 04/26/2025, there is little significant change.
Pneumomediastinum, rule out distal esophageal injury
CT chest shows:
1. No evidence of pulmonary embolism.
2. There is extensive subcutaneous emphysema as well as prominent pneumomediastinum. There are 2 gas containing foci within the posterior mediastinum adjacent to the distal esophagus which raises the possibility of distal esophageal injury as the
etiology of the pneumomediastinum. Consider direct visualization for further evaluation.
3. Moderate bilateral pleural effusions with partial collapse of the left lower lobe and adjacent atelectasis within the right lower lobe.
4. Trace right apical pneumothorax.
Discussed with surgery at [place] Dr. Daniel Hurtado who stated that that could be a normal finding postoperatively but recommending upper GI series with Gastrografin, which is ordered.
Metabolic encephalopathy � CVA ruled out
CTA impression:
No evidence of large vessel occlusion or arterial dissection
Extensive subcutaneous emphysema in head/neck, retropharyngeal space, and mediastinum
No apical pneumothorax
Small bilateral pleural effusions
2 cm right thyroid nodule � consider nonemergent thyroid ultrasound
Head CT impression:
Moderate cortical atrophy and chronic ischemic changes
Old infarct in left cerebellum
Extensive subcutaneous emphysema in neck soft tissues � chest X-ray recommended
Neurology evaluated; recommends laryngeal check and MRI brain with and without contrast.
Patient will need sedation for MRI, since we need to do upper GI series first, MRI postponed for now.
Acute hyponatremia / Hypocalcemia secondary to fluid overload
Fluid restriction and diuretics
Nephrology consulted, note appreciated
CKD Stage IIIb
Continue management as above
Recent paraesophageal hernia repair / Known subcutaneous emphysema
Hold oxycodone
Follow upper GI series with Gastrografin study to rule out esophageal leak
Anemia of chronic disease
Hemoglobin stable at 11.2, no active bleeding
Continue monitoring
Troponin elevation � likely NSTEMI in setting of CHF exacerbation
Troponin: 0.103, continue trending
EKG: sinus tachycardia
Paroxysmal atrial fibrillation
Eliquis on hold
Continue metoprolol
Crohn�s disease
On Skyrizi
History of diverticulosis
History of breast cancer
History of skin cancer
Hyperlipidemia
Continue statin
GERD
Continue Protonix
Anxiety
Continue alprazolam
Code Status: Full Code
DVT Prophylaxis: SCDs
Diet: Cardiac diet
Family communication: Discussed with family at bedside
Disposition: CTA chest pending
CODE STATUS: Full code
DVT prophylaxis: Resume Eliquis if no evidence of distal esophageal leak
Diet: NPO for upper GI series
Family communication: Discussed with family at bedside
Disposition: Upper GI series with Gastrografin.
N.p.o. for now.
Resume Eliquis if upper GI series negative.
MRI brain pain
Continue lasix
Total time spent on today's encounter was 55 minutes which included time spent in counseling the patient/family regarding diagnosis and treatment plan as listed above, goals of care, and symptom management. Case was discussed with nursing staff,
specialists, and care coordinators/case management. All labs and imaging personally reviewed by me. Remainder the time spent in detailed review of previous records, lab data, imaging, and other medical provider documentation.
Part of this note was created using voice recognition system. Occasional wrong word or �sound alike� substitutions may have inadvertently occurred due to the inherent limitations of voice recognition software. If noted kindly bring it to my
attention for correction.
Anticipated Discharge: > 48 hours
Subjective/Interval History
-
Date of Service: May 14, 2025
Patient seen and examined at bedside, family at bedside, admits pain all over her body, overall respiratory status improved and currently on 6 L nasal cannula.
Discussed CT result with family, discussed with surgery at [facility], will obtain upper GI with Gastrografin.
Objective Data
-
Labs:
Laboratory Results
05/14/25
05:41
WBC 4.4 L
Hgb 10.7 L
Hct 33.1 L
Plt Count 174
Sodium 129 L
Potassium 3.7
Chloride 95 L
Carbon Dioxide 27
BUN 20 H
Creatinine 1.0
Glucose 80
Calcium 6.8 L*
Vital Signs:
Vital Signs
Temp Pulse Resp BP Pulse Ox
97.6 F 103 19 131/84 93
05/14/25 11:54 05/14/25 12:45 05/14/25 12:45 05/14/25 12:00 05/14/25 12:45
I&O
05/13/25 05/14/25 05/15/25
06:59 06:59 06:59
Output Total 2700 / 2700 1125 / 1125
Balance -2700 / -2700 -1125 / -1125
Physical Exam
-
General: Well Developed and Appears in Distress
HEENT: Normocephalic, Atraumatic, Moist Mucous Membranes, No Ptosis, PERRLA and Nose Appears Normal
Respiratory: Wheezes, Rales, Rhonchi, Crackles and Non Labored Respirations
Cardiac: Regular Rhythm and S1/S2
Breast: Deferred by me
GI: Soft, Nontender, Nondistended and Normal Bowel Sounds
Genito-urinary: No Costovertebral Tender
Musculoskeletal: No Clubbing, No Cyanosis, Edema, Right Lower Extrem and Edema, Left Lower Extrem
Skin: Warm and Other (Multiple skin bruises)
Neuro: Awake, Alert, Oriented, AO x 3 and No Motor Deficits
Psych: Calm
Data Reviewed
-
Diagnostic Radiology: Image personally visualized and interpreted and Report Reviewed by me
CT Scan: Image personally visualized and interpreted and Report Reviewed by me
Ultrasound: Image personally visualized and interpreted and Report Reviewed by me
MRI: Image personally visualized and interpreted and Report Reviewed by me
Medical Tests (Nuc Med, Echo etc): Image personally visualized and interpreted and Report Reviewed by me
Labs: Labs Reviewed by me
Old Records: Reviewed
[2025-05-14] MEDS: CALCIUM GLUCONATE 290 MG IV (13:30)
--- NOTE | 2025-05-14 14:18 | CON.GS ---
Consultation
-
Date/Time Consultation Performed: 05/14/25 0075
Medical History
-
History of Present Illness:
85 yo female with a h/o Afib on Eliquis (held for recent surgery), CVA and Crohn's who recently underwent PEH hernia repair at [facility] on 05/10/25 and was subsequently discharged to home on 05/11/25 on clear liquids with instructions to slowly advance
diet at home. She was found by family unresponsive at home yesterday morning and they noted a low pulse ox and applied oxygen and then called 911. She was found to be hypoxic with acute heart failure exacerbation with mildly elevated troponin as
well as electrolyte derangements including hyponatremia and hypocalcemia. She is currently in IMU undergoing cardiac and neurologic work up. She denies nausea and vomiting. She is oriented x3 and back to baseline per family. She denies much
discomfort. Incisions are healing well.
Past Medical History
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
Past Surgical History: Hernia Repair (Paraesophageal ), Orthopedic (Left THR) and Other (septoplasty)
Social History
Tobacco: Former Smoker
Alcohol: None
Family History
Family History: Reviewed & Not Pertinent
Allergies / Home Medications
Allergy/AdvReac Type Severity Reaction Status Date / Time
No Known Allergies Allergy Verified 10/08/24 08:07
�Medication �Instructions �Recorded �Confirmed �Type
pantoprazole 40 mg tablet,delayed 40 mg PO DAILY Gastrointestinal 03/13/20 05/13/25 History
release issue
alprazolam 1 mg tablet 1 mg PO HS Mental Health/Anxiety 09/05/22 05/13/25 History
apixaban 5 mg tablet (Eliquis) 5 mg PO BID Blood clot 09/05/22 05/13/25 History
prevention/tx
atorvastatin 40 mg tablet 40 mg PO HS High cholesterol 09/05/22 05/13/25 History
risankizumab-rzaa 360 mg/2.4 mL 360 mg SC Q6W Crohn's disease 08/12/23 05/13/25 History
(150 mg/mL) subcut wearable
injector (Skyrizi)
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
syringe (Prolia) Disorder
metoprolol succinate 25 mg 25 mg PO BID Heart Failure #60 tabs 10/14/24 05/13/25 Rx
tablet,extended release 24 hr
acetaminophen 500 mg tablet 500 mg PO Q6H PRN mild pain 05/13/25 05/13/25 History
furosemide 40 mg tablet (Lasix) 40 mg PO DAILYPRN PRN Heart Failure 05/13/25 05/13/25 History
oxycodone 5 mg tablet 5 mg PO Q4HPRN PRN severe pain 05/13/25 05/13/25 History
potassium chloride 20 mEq 20 meq PO DAILYPRN PRN Electrolyte 05/13/25 05/13/25 History
tablet,extended release(part/cryst) Repletion
Review of Systems
-
History Source: Patient and Family
All other systems: Negative unless noted
A 10 point review of systems was completed, and was negative except as per HPI.
Physical Exam
Vital Signs
Temp Pulse Resp BP Pulse Ox
97.6 F 103 19 131/84 93
05/14/25 11:54 05/14/25 12:45 05/14/25 12:45 05/14/25 12:00 05/14/25 12:45
05/13/25 05/14/25 05/15/25
06:59 06:59 06:59
Actual Weight 73.3 kg
Lab Results
05/14/25 05:41
05/14/25 05:41
WBC 4.4 10^3/uL (4.8-10.8) L 05/14/25 05:41
Hgb 10.7 g/dL (12.0-16.0) L 05/14/25 05:41
Hct 33.1 % (37.0-47.0) L 05/14/25 05:41
Plt Count 174 10^3/uL (130-400) 05/14/25 05:41
Abs Immat Gran (auto) 0.0 10^3/uL (0-0.05) 05/13/25 12:58
Neutrophils % 90.0 % (42.2-75.2) H 05/13/25 12:58
Physical Exam
General: Well Developed and No Apparent Distress
HEENT: Normocephalic and Moist Mucous Membranes
Respiratory: Non Labored Respirations
GI: Soft, Non Tender, Distended (minimal) and Incisions (healing well)
Skin: Warm and Dry
Neuro: Awake, Alert and AO x 3
Psych: Calm
Data Reviewed
-
CT Scan: Image Personally Visualized and interpreted, Report Reviewed by me, Discussed with Physician, Discussed with Patient and Discussed with Family
Labs: Labs Reviewed by me, Discussed with Physician, Discussed with Patient and Discussed with Family
Old Records: Requested (requested records from [facility]) and Reviewed
Assessment / Plan
-
85 yo female with a h/o Afib on Eliquis (held for recent surgery), CKD, CVA and Crohn's who recently underwent laparoscopic PEH hernia repair at [facility] on 05/10/[address] Daniel Hurtado and was subsequently discharged to home on 05/11/25. She was found
by family unresponsive at home. She was found to be hypoxic with acute heart failure exacerbation with mildly elevated troponin as well as electrolyte derangements including hyponatremia and hypocalcemia. She is afebrile, mildly tachycardic with
normal BP's. No leukocytosis. Mild anemia present.
CT imaging with pneumomediastinum and subcutaneous emphysema, not uncommon after the procedure she underwent. A right apical PTX is present, also not uncommon post op PEH repair. Her surgeon at [facility] was contacted and recommended UGI study to ensure
there is no esophageal injury which showed no extravasation of contrast.
MRI brain is pending, CT head negative for stroke.
Plan:
Ok to continue full liquid diet, would discharge on this diet until can follow up with her primary surgeon
No surgical interventions planned, ok for Eliquis from surgical standpoint
Surgery to follow peripherally, please call with questions/concerns
[2025-05-14] MEDS: KCL ELIXIR 40 MEQ PO (15:48)
[2025-05-14 19:21] LABS: Ferritin 64.0 ng/ml (11.1-264.0)
[2025-05-14 19:52] LABS: Folate > 20.0 ng/ml (2.76-20); Vitamin B12 968 pg/ml (239-931)
[2025-05-14] MEDS: ELIQUIS 5 MG PO (21:04)
[2025-05-14] MEDS: LIPITOR 80 MG PO (21:05)
[2025-05-14] MEDS: XANAX 1 MG PO (21:05)
[2025-05-15] VITALS (11 sets, daily range): BP systolic 95–131; BP diastolic 45–84
--- NOTE | 2025-05-15 01:12 | PTCARENOTE ---
patient on 4L midflow, sating at 100%. Patient restless and keeps changing from bed to chair with 1 person assist. Patient slept in chair for a few hours and moved back to bed. Patient does not ring appropriately, will just try to get up and move
herself. bed and chair alarms on. purewick in place overnight while in bed. assessment charted. call bautista in reach.
[2025-05-15 05:37] LABS: Hematocrit 35.4 % (37.0-47.0); Hemoglobin 11.0 g/dL (12.0-16.0); Mean Corp Hgb Conc. 31.1 g/dL (33.0-37.0); Mean Corpuscular Volume 91.5 fL (81.0-99.0); Platelet Count 207 10^3/uL (130-400); Red Cell Dist. Width 15.4 % (11.5-14.5)
[2025-05-15 06:13] LABS: Blood Urea Nitrogen 16 mg/dl (7-17); Calcium 8.2 mg/dl (8.4-10.2); Carbon Dioxide 32 mmol/L (22-30); Chloride 94 mmol/L (98-107); Glucose 83 mg/dl (70-99); Potassium 4.1 mmol/L (3.5-5.1); Sodium 132 mmol/L (135-145); eGFR > 60.00
--- NOTE | 2025-05-15 07:56 | W.PN.CARDCBS ---
Today's Communication / Plan
-
Overall clinically improving/resolving encephalopathy
Still somewhat volume overloaded, continue diuresis
Pulmonary toilet
Apixaban has been resumed for atrial fibrillation related thromboembolic risk reduction
Continued physical therapy evaluation and treatment
Impression / Plan
-
PCP: Dr. Johan Cunningham
Card: Dr. Erica Barrett
Impression:
Presented to the ER with abrupt change in mental status and hypoxia 05/13/2025: Toxic metabolic encephalopathy is likely diagnosis
Recent admission for paraesophageal hernia repair at [facility] 05/10/2025 until 05/11/2025
Recent admission for acute HF 10/08/2024 until 10/14/2024
Acute hypoxic respiratory failure
Change in mental status
Elevated troponin
Acute HFpEF
Acute on chronic B/L LE edema
Hyponatremia
Hypocalcemia
h/o Hypoalbuminemia
Paroxysmal Afib
Chronic Eliquis OAC
Last dose 05/05/2025 due to paraesophageal hernia repair surgery 05/10/2025
h/o CVA by MRI in [place] 2021
Hyperlipidemia
Crohn's disease
Anemia
Lexiscan nuclear stress test 05/03/2025: Perfusion imaging reveals a small area of moderately to severely decreased counts in the apex, at rest defect remains predominantly fixed consistent with likely soft tissue attenuation, EF 57%
Echo 04/21/2024: EF 55-60%, mild MR, thickened aortic valve leaflets with normal excursion
Echo 10/09/2024: EF 60 to 65%. Mild TR. PAP 42 to 45 mmHg
Echo 04/26/2025: EF 55 to 60%, mild TR, trivial pericardial effusion, unchanged from echo 09/2024
Echo 05/13/2025:
1. Left ventricular ejection fraction is normal with an ejection fraction of 54 % by Kirby's biplane method of discs.
2. Right ventricular size and systolic function are within normal limits.
3. Aortic sclerosis without stenosis.
4. Mild tricuspid regurgitation. Estimated pulmonary artery pressure of 34 mmHg assuming a right atrial pressure of 8 mmHg.
5. Compared to prior study dated 04/26/2025, there is little significant change.
Plan:
Toxic metabolic encephalopathy
Likely related to hypoxia as well as electrolyte derangement with marked hyponatremia status post paraesophageal hernia repair (05/10/25)
Clinically improving
Sodium improving, up to 132.
Calcium improving after IV repletion, calcium up to 8.2
Acute on chronic heart failure with preserved ejection fraction
Likely precipitated by volume overload Jennifer-op
Continue IV lasix 40 mg BID, renal function improving, potassium 4.1, sodium up to 132, weight is down 4 pounds past 24 hrs (down 13# ? in 48 hrs)
Follows daily weight, renal function/lytes
Wean O2 as able
Troponin peaked at 0.197.
No chest pain, no suggestion of ischemia or myocardial infarction on EKG, would not trend further.
Troponin peaked at 1.97 then reduced
Suspect nonischemic myocardial injury
No further coronary ischemia evaluation at this time
Patient has a history of paroxysmal A-fib, but currently in sinus rhythm
Would continue home metoprolol
Apixaban 5 mg twice daily has been resumed
Acute hypoxic respiratory failure in the setting of postsurgical state from paraesophageal hernia repair with subsequent pneumomediastinum and extensive subcutaneous emphysema as well as tiny right pneumothorax. Bilateral atelectasis and bilateral
pleural effusions
Pulmonary now following
Diuresis with IV Lasix
Pulmonary toilet
Paraesophageal hernia repair
There had been some concern about the possibility of perforated esophagus with communication between the esophagus and the lung. However imaging finds this not to be the case,
Radiographic findings are typical expected findings after this type of surgery.
chronic kidney disease stage IIIB based on creatinine 1.1 -1.2
Renal function is improving
Deconditioning
Physical therapy evaluating
Likely will need rehab/SNF stay
Discussed with son at bedside
All questions answered
Total time spent today was 50 minutes in preparing to see the patient, seeing the patient and coordination of care. This included review of recent laboratory evaluations, cardiact testing, imaging studies, primary care rtecords, specialty
consultations, hospital records, as well as personally interviewing and examining the patient, which included discussion of their tests, review/ordering medications, and communicating with other healthcare professionals and also treatment planning
as well as counseling.
Total time does not include separately billed tests performed on this date of service.
Patient presents to the ER today with hypoxia and change in mental status and cardiology is consulted for possible acute HF. Patient was last seen in the office on 12/30/2024 and at that time appeared stable on a regimen of Lasix 40 mg daily
according to medication reconciliation list in the office, but patient family reports dosing was more like 3 times a week. Patient has chronic LE edema. Last admission for heart failure was 09/2024 and at that point patient diuresed to a dry weight
of 147lbs. In the interim patient saw a surgeon at [facility] and was offered paraesophageal hernia repair surgery. Patient had preoperative Lexiscan nuclear stress test on 05/03/2025 that was negative for ischemia. Patient had echocardiogram 04/26/2025
that showed preserved EF without significant valve disease. Patient's surgeon told her to stop Eliquis on 05/05/2025 and patient has surgery on 05/10/2025 at [facility]. Patient's family reports surgery was considered a success and patient has had
symptomatic improvement. Patient has been following a liquid diet and was able to return home on 05/11/2025. Family has been with the patient at all times and this morning she awoke in her usual state of health, ate some Jell-O took a pain
medication and then lay down to take a nap. The patient's son checked on her at around 930 and the patient was unresponsive and did not awaken easily and 911 was called. Patient was noted to be hypoxic at 40% on room air and supplemental oxygen
therapy was started. In the emergency room initially patient was responsive to pain with palpation of the abdomen. CT of the head without acute intracranial abnormality and neurology saw the patient for possible stroke alert, but they do not feel
patient's presentation is consistent with CVA. Additional labs then returned including a proBNP of 21,800 which is her highest level on record and CT of the chest suggested small B/L pleural effusions. Patient was ordered Lasix 40 mg IV by ER
attending, but has yet to receive that dose. Sodium level was 123 initially.
Progress Note - Lapper
Subjective
Date of Service: May 15, 2025
Sleeping but arousable. No chest pain. No shortness of breath at rest, lying flat in bed.
Objective
Labs:
05/15/25 04:54
05/15/25 04:54
Labs
Hgb 11.0 g/dL (12.0-16.0) L 05/15/25 04:54
Hct 35.4 % (37.0-47.0) L 05/15/25 04:54
Plt Count 207 10^3/uL (130-400) 05/15/25 04:54
PT 14.8 Sec (11.4-14.6) H 05/13/25 12:58
INR 1.18 05/13/25 12:58
APTT 42.6 Sec (23.4-35.0) H 05/13/25 12:58
Sodium 132 mmol/L (135-145) L 05/15/25 04:54
Potassium 4.1 mmol/L (3.5-5.1) 05/15/25 04:54
BUN 16 mg/dl (7-17) 05/15/25 04:54
Creatinine 0.7 mg/dL (0.6-1.0) 05/15/25 04:54
Glucose 83 mg/dl (70-99) 05/15/25 04:54
Troponins
05/13/25 05/13/25 05/13/25
12:58 18:06 23:46
Troponin I 0.103 H* 0.171 H* D 0.197 H*
05/14/25
05:41
Troponin I 0.168 H*
Vital Signs and I&O:
Vital Signs
Temp Pulse Resp BP Pulse Ox
98.1 F 100 17 110/59 98
05/15/25 03:00 05/15/25 04:54 05/15/25 04:54 05/15/25 04:54 05/15/25 04:54
Vital Signs
Temp Pulse Resp BP Pulse Ox
98.1 F 100 17 110/59 98
05/15/25 03:00 05/15/25 04:54 05/15/25 04:54 05/15/25 04:54 05/15/25 04:54
Intake & Output
05/13/25 05/14/25 05/15/25 05/16/25
06:59 06:59 06:59 06:59
Output Total 2700 / 2700 1825 / 1825
Balance -2700 / -2700 -1825 / -1825
Physical Exam
Physical Exam
Elderly woman, laying in bed, sleeping but arousable
Neck no JVD
Heart regular rate and rhythm with normal S1 and S2, no S3 no S4 there is a grade 1/6 apical holosystolic murmur and no rub
Lungs decreased inspiratory effort, reduced breath sounds at both bases.
Abdomen soft nondistended positive bowel sounds mild diffuse tenderness, no rebound
Extremities +2 lower extremity edema bilaterally
Neurologic exam nonfocal
[2025-05-15] MEDS: TOPROL XL 25 MG PO ×2 (09:20→20:19)
[2025-05-15] MEDS: LASIX 40 MG IV ×2 (09:20→17:40)
[2025-05-15] MEDS: ELIQUIS 5 MG PO ×2 (09:20→20:18)
[2025-05-15] MEDS: PROTONIX 40 MG PO (09:20)
[2025-05-15] MEDS: TYLENOL 650 MG PO (09:27)
--- NOTE | 2025-05-15 09:36 | W.PN.HOSP.TC ---
Today's Communication/Plan
-
see plan
Assessment / Plan
Assessment / Plan
Admission summary: [id number] female with past medical history for CVA, chron's disease presents for department due to being found unresponsive by family just prior to arrival. denied MINOR, dizzy or syncope. denied fever, chills, chest pain. she
has LE edema which is chornic as per family. denied dysuria or hematuria. Patient status post hiatal hernia repair this past week at [facility]. She was taken off of her Eliquis for her atrial fibrillation, and has not yet restarted
it. She took OxyContin at about 10:30 AM. Her oxygenation was 40% on room air upon EMS arrival. Initially placed on high flow oxygen then weaned down to 6 L. Discussed with surgery at [place] [facility] who stated that that could be a normal finding
postoperatively but recommending upper GI series with Gastrografin, which is ordered.
Patient seen by pulmonology/cardiology, also nephrology consulted for hyponatremia.
Gen: NAD, AAOx3, appears chronically ill.
Eyes: EOMI, no scleral icterus.
Neck: supple.
CV: RRR, +S1/S2, no m/r/g.
Resp: dec BS in the bases, otherwiseCTAB, no rales, wheezes, or rhonchi.
Abd: +BS, soft, NT, ND
Skin: No rashes. 1+ B/L LE edema
Neuro: CN 2-12 intact, non-focal.
Psych: Normal mood and affect.
CXR 05/13: There is elevation of the left hemidiaphragm. There is an air collection under the diaphragm which is likely related to an elevated gastric bubble. There has been recent paraesophageal hernia surgery which could be the etiology of the
extensive subcutaneous emphysema. There is airspace disease in the right lower lobe which is likely atelectasis.
CTA chest 05/13:
1. No evidence of pulmonary embolism.
2. There is extensive subcutaneous emphysema as well as prominent pneumomediastinum. There are 2 gas containing foci within the posterior mediastinum adjacent to the distal esophagus which raises the possibility of distal esophageal injury as the
etiology of the pneumomediastinum. Consider direct visualization for further evaluation.
3. Moderate bilateral pleural effusions with partial collapse of the left lower lobe and adjacent atelectasis within the right lower lobe.
4. Trace right apical pneumothorax.
CTA head/neck 05/13:
1. No evidence of large vessel occlusion, or arterial dissection.
2. Extensive subcutaneous emphysema within the soft tissues of the head and neck, retropharyngeal space, and mediastinum. No apical pneumothorax on either side.
3. Small bilateral pleural effusions.
4. 2 cm right thyroid nodule. Consider nonemergent thyroid ultrasound for further characterization.
CT brain 05/13:
1. There are moderate changes of cortical atrophy and chronic ischemic disease.
2. There is an old infarct in the left cerebellum
3. There is extensive subcutaneous emphysema in the soft tissues of the neck.
Echo 05/14:
1. Left ventricular ejection fraction is normal with an ejection fraction of 54 % by Kirby's biplane method of discs.
2. Right ventricular size and systolic function are within normal limits.
3. Aortic sclerosis without stenosis.
4. Mild tricuspid regurgitation. Estimated pulmonary artery pressure of 34 mmHg assuming a right atrial pressure of 8 mmHg.
5. Compared to prior study dated 04/26/2025, there is little significant change.
Esophagram: No definitive extravasation of contrast that would confirm distal esophageal perforation.
Acute hypoxic respiratory failure due to acute on chronic HFpEF:
-cards following
-proBNP 21,800
-acute metabolic encephalopathy likely due to acute hypoxic respiratory failure due to acute on chronic HFpEF, neuro following and MRI brain ordered
-was on high flow O2, now weaned to 5L NC O2
-cont IV lasix, daily wts, I/Os
-echo above
Pneumomediastinum:
-CT chest above
-Esophagram above, no esophageal leak
-prior physician discussed with surgery at [place] [facility] who stated that that could be a normal finding postoperatively
Other problems:
Hypocalcemia, improved
Elevated troponin, nonischemic myocardial injury
Acute hyponatremia, improving with diuresis
ALBAN on CKD3b, resolved with diuresis (CRS)
Recent paraesophageal hernia repair/known subcutaneous emphysema
Anemia of chronic disease: Hb stable
PAF: cont Eliquis/BB
Crohn�s disease: on [facility]
h/o breast CA
h/o skin CA
HLD: cont statin
GERD: cont PPI
Anxiety: cont Xanax
FULL/Eliquis
Anticipated Discharge: > 48 hours
Subjective/Interval History
-
Date of Service: May 15, 2025
No new complaints.
Objective Data
-
Labs:
Laboratory Results
05/15/25
04:54
WBC 4.2 L
Hgb 11.0 L
Hct 35.4 L
Plt Count 207
Sodium 132 L
Potassium 4.1
Chloride 94 L
Carbon Dioxide 32 H
BUN 16
Creatinine 0.7
Glucose 83
Calcium 8.2 L
Vital Signs:
Vital Signs
Temp Pulse Resp BP Pulse Ox
98.1 F 89 17 107/65 98
05/15/25 03:00 05/15/25 09:20 05/15/25 04:54 05/15/25 09:20 05/15/25 04:54
I&O
05/14/25 05/15/25 05/16/25
06:59 06:59 06:59
Output Total 2700 / 2700 1824 / 1824
Balance -2700 / -2700 -1825 / -182
--- NOTE | 2025-05-15 10:17 | W.PN.PUL3 ---
Today's Communication / Plan
-
- Follow-up chest x-ray in a.m.
- Continue diuresis as tolerated
- Monitor off antibiotics
Assessment
-
85-year-old female with prior history of CVA, Crohn's disease, A-fib on Eliquis presents to ER for being found unresponsive by family just prior to arrival. She was recently admitted at [facility] for paraesophageal hernia repair,
taken off her Eliquis for procedure. On arrival to ER her O2 malachi was 40%, she was placed on high flow nasal cannula. CT imaging demonstrating extensive subcutaneous emphysema as well as prominent pneumomediastinum, 2 gas containing foci within
the posterior mediastinum suggesting distal esophageal injury, moderate bilateral pleural effusions with collapse of the lower lobe. Admitted to IMU, we are consulted for evaluation.
Acute hypoxic respiratory failure
Pneumomediastinum, subcutaneous emphysema
Suspect perforated esophageal injury with 2 gas containing foci
Status post recent paraesophageal hernia repair
Moderate bilateral pleural effusions, likely acute on chronic heart failure
Conditions present prior to admission
breast cancer s/p lumpectomy
Crohn's disease
skin cancer bcc nose/MOHS
Hyperlipidemia
HTN
GERD with large hiatal hernia
Iron def anemia
Paroxysmal atrial fibrillation on Eliquis
Patent foramen ovale
Obesity
Total hip replacement surgery after fall, left 12/2021
Septoplasty
History of GI Bleed 2019
DH - heart failure 10/08-
Plan
Hypoxemia noted on arrival, placed on HFNC, now transitioned to nasal cannula 2 ltr, improving
No oxygen was needed at baseline, home
Home O2 evaluation eventually
Prior history of lung disease is NOT noted--nonsmoker
No PFTs in past for review
Suspect patient has postoperative changes from recent paraesophageal hernia repair
She has diffuse severe subcutaneous emphysema, pneumomediastinum, small pneumothorax
Care team has communicated with surgeon at [facility], this was felt to be expected postoperative changes
Gastrografin study negative for perforation
Low threshold for transfer if she were to clinically deteriorate
Continue IV lasix for diuresis, cardiology service on casae
- F/U CXR in AM
Case discussed with care team
Will need outpatient pulmonary evaluation for PFTs and 6MWT
We will follow
Diagnostic Data
Chest X-Ray: 05/13/25-There is elevation of the left hemidiaphragm. There is an air collection under the diaphragm which is likely related to an elevated gastric bubble. There has been recent paraesophageal hernia surgery which could be the etiology
of the extensive subcutaneous emphysema.
CT Scan: 05/13/25-1. No evidence of pulmonary embolism.
2. There is extensive subcutaneous emphysema as well as prominent pneumomediastinum. There are 2 gas containing foci within the posterior mediastinum adjacent to the distal esophagus which raises the possibility of distal esophageal injury as the
etiology of the pneumomediastinum. Consider direct visualization for further evaluation.
3. Moderate bilateral pleural effusions with partial collapse of the left lower lobe and adjacent atelectasis within the right lower lobe.
4. Trace right apical pneumothorax.
Echo: 04/26/25-1. Normal left ventricular chamber size myocardial thickness and systolic function. Left ventricular ejection fraction 55 to 60%.
2. Mild tricuspid regurgitation.
3. Trivial pericardial effusion is present.
4. Technically fair study.
5. Compared to previous echo from September 2024, findings are similar.
10/09/24- Normal left ventricular size, wall thickness and systolic function with normal regional wall motion Left ventricular ejection fraction visually estimated 60-65% Normal RV size and systolic function Thickened mitral valve leaflets with no
significant mitral regurgitation Trileaflet, mildly sclerotic aortic valve without stenosis. No significant aortic regurgitation. Mild tricuspid regurgitation
Estimated pulmonary artery pressure of 42-45 mmHg. Assuming a right atrial pressure of 5-8 mmHg. Trivial pericardial effusion Compared to prior study dated 04/21/2024, LV systolic function is preserved/vigorous. Pulmonary pressures slightly
increased compared to prior, previously estimated 25 mmHg.
PFT's:
Reports and relevant images were personally reviewed.
Total time spent on this consultation __45__ minutes which includes review of history, physical exam, medications, laboratory data, personal review of imaging, extensive review of outpatient records, discussion with care team and respiratory therapy.
Subjective Data
-
Date of Service:
Date of Service: May 15, 2025
Subjective:
No new symptoms reported
Objective Data
Data Reviewed
Vital Signs / I&O / Oxygen:
Vital Signs
Temp Pulse Resp BP Pulse Ox
97.4 F 98 17 98/70 97
05/15/25 07:03 05/15/25 10:00 05/15/25 10:00 05/15/25 10:00 05/15/25 10:00
Intake and Output
05/14/25 05/15/25 05/16/25
06:59 06:59 06:59
Output Total 2700 / 2700 1825 / 1825 275 / 275
Balance -2700 / -2700 -1825 / -1825 -275 / -275
SaO2 97
Nasal Cannula flow liters per 5
minute
Physical Exam
General: Comfortable
HEENT: Normocephalic
Cardiovascular: S1-S2
Respiratory: Clear and Non-Labored Respirations
GI: Soft and Non Distended
Neurology: Awake and Alert
Skin: Warm
Labs/Micro/Reports
Lab Data
05/15/25 04:54
05/15/25 04:54
--- NOTE | 2025-05-15 10:58 | PTCARENOTE ---
0700 assumed care. patient in bed. On 4L of oxygen via nasal canula.
-AAO x 3 . bed and chair alarm activated
-Wean to 2L of oxygen via nasal canula SpO2 93%. 87%RA at rest Lungs diminished
-Normal Sinus Rhythm 68 +2 edema pitting b/l le
-Abdomen soft round NORMAL Bowel sounds x 4 quadrants . Surgical puncture sites JAMARCUS +BM soft round medium. Tolerating Full liquid diet
- Son at bedside updates provided
-MRA today
--- NOTE | 2025-05-15 11:26 | W.PN.NEPH.PH ---
Today's Communication / Plan
-
diurese
Assessment/Plan
-
Impression
hyponatremia at 123 with altered mental status in the setting of hypoxia
hypocalcemia
chronic kidney disease stage IIIB based on creatinine 1.1 -1.2
emphysema on imaging
CHF with preserved EF as of 2024
atrial fibrillation
Plan
continue IV diuretics today
plan to convert to po lasix tomorrow
follow BMP
-
-
Date of Service: May 15, 2025
CC / HPI / ROS
-
Chief Complaint:
hyponatremia
History of Present Illness:
Na up to 132
Calcium up to 8.2 after repletion
CR stable 0.7
BP stable
diuresing well with IV lasix for decompensated HFpEF
Review of Systems:
no CP/SOB
Labs
-
Labs:
WBC 4.2 10^3/uL (4.8-10.8) L 05/15/25 04:54
RBC 3.87 10^6/uL (4.20-5.40) L 05/15/25 04:54
Hgb 11.0 g/dL (12.0-16.0) L 05/15/25 04:54
Hct 35.4 % (37.0-47.0) L 05/15/25 04:54
Plt Count 207 10^3/uL (130-400) 05/15/25 04:54
Sodium 132 mmol/L (135-145) L 05/15/25 04:54
Potassium 4.1 mmol/L (3.5-5.1) 05/15/25 04:54
Chloride 94 mmol/L (98-107) L 05/15/25 04:54
Carbon Dioxide 32 mmol/L (22-30) H 05/15/25 04:54
BUN 16 mg/dl (7-17) 05/15/25 04:54
Creatinine 0.7 mg/dL (0.6-1.0) 05/15/25 04:54
eGFR > 60.00 05/15/25 04:54
Glucose 83 mg/dl (70-99) 05/15/25 04:54
Calcium 8.2 mg/dl (8.4-10.2) L 05/15/25 04:54
Cdv-K-Mbwulgjtbpa Pept 58843 pg/ml 05/13/25 23:50
Albumin 2.9 g/dl (3.5-5.0) L 05/13/25 18:06
Physical Exam
-
Vital Signs:
Vital Signs
Temp Pulse Resp BP Pulse Ox
97.3 F 71 20 98/70 97
05/15/25 11:11 05/15/25 11:00 05/15/25 11:00 05/15/25 10:00 05/15/25 11:00
Cardiovascular:: Regular rate and rhythm
Respiratory:: Bilateral: Coarse
Lung Excursion:: Normal
Abdomen:: Nontender and Soft
Bowel Sounds:: Normal
Extremity Edema:: +1: Bilateral:
--- NOTE | 2025-05-15 16:38 | PTCARENOTE ---
patient intermittent OOB Chair and back in bed
AAO x 3 Forgetful. on 2L of oxygen via nasal canula
Abdominal complaints gas like pain
continent of urine
[2025-05-15] MEDS: LIPITOR 80 MG PO (20:19)
[2025-05-15] MEDS: XANAX 1 MG PO (21:04)
[2025-05-16] VITALS (14 sets, daily range): BP systolic 80–145; BP diastolic 53–72
--- NOTE | 2025-05-16 03:57 | PTCARENOTE ---
Pt with urinary frequency, incontinence at times. Able to ambulate to bathroom with assist x1 and rw. Pt does not demonstrate appropriate use of call bautista, bed alarm in place for pt safety. PW in place for nighttime incontinence. Maintained on 2L
O2. Care ongoing.
[2025-05-16 06:07] LABS: Hematocrit 35.5 % (37.0-47.0); Hemoglobin 11.3 g/dL (12.0-16.0); Mean Corp Hgb Conc. 31.8 g/dL (33.0-37.0); Mean Corpuscular Volume 88.5 fL (81.0-99.0); Platelet Count 205 10^3/uL (130-400); Red Cell Dist. Width 15.1 % (11.5-14.5)
[2025-05-16 06:40] LABS: Blood Urea Nitrogen 15 mg/dl (7-17); Calcium 8.1 mg/dl (8.4-10.2); Carbon Dioxide 35 mmol/L (22-30); Chloride 93 mmol/L (98-107); Glucose 87 mg/dl (70-99); Potassium 3.5 mmol/L (3.5-5.1); Sodium 133 mmol/L (135-145); eGFR > 60.00
--- NOTE | 2025-05-16 07:08 | W.PN.NEURO.1 ---
Today's Communication / Plan
-
Continue apixiban 5 mg BID, atrovastatin.
Neuro Assessment/Plan
Assessment
Madina Arambula is a 85-year-old female with past medical history of AFIB currently off anticoagulation for recent hernia repair, who has presented to the hospital on 05/13/25 with report of unresponsiveness, now found to have multifocal acute to
subacute embolic appearing punctate infarcts most suggestive of a cardioembolic source, likely secondary to AFIB in the setting of held AC. Initial NIHSS 16 (05/13), however limited due to lack of cooperation. Recent trials suggest safety of
restarting anticoagulation 3-4 days after symptom onset in patients with moderate to severe stroke. Given high risk for recurrent cardioembolic events, recommend restarting apixiban
Other stroke etiologies disfavored include hypercoagulable state (disfavored due to relatively low D-dimer), endocarditis/septic emboli (absence of fever, leukocytosis, relatively unremarkable TTE).
The degree of initial encephaloapthy likely not fully explained by MRI results. Likely contributing factors include acute hypoxic respiratory failure and possible toxic-metabolic encephalopathy (multiple electrolyte abnormalities, ALBAN etc). Exam
today with marked improvement in encephalopathy, with only mild persistent inattention and delayed responsiveness however no focal features
Plan
- continue apixiban 5 mg BID
- continue atorvastatin 80 mg (increased this admission due to LDL> 70)
- BP goal normotension
- continue to correct electrolyte abnormalities
- STAT NCHCT for acute change in mental status given recently restarted on AC
- neurology will signoff; if neurological exam/alertness does not improve after above, please re-engage neurology
Subjective/Objective
Subjective Data
Date of Service: May 16, 2025
- MRI brain with evidence of multifocal embolic appearing late acute/subacute punctate acute infarcts
- Restarted on apixiban 5 mg BID
- Patient and son report improvement in mental status
Objective Data
Vital Signs
Temp Pulse Resp BP Pulse Ox
36.3 C 86 21 112/53 98
05/16/25 03:09 05/16/25 02:00 05/16/25 02:00 05/16/25 00:00 05/16/25 01:04
Lab Results
05/16/25 05:23
05/16/25 05:23
PT 14.8 Sec (11.4-14.6) H 05/13/25 12:58
INR 1.18 05/13/25 12:58
APTT 42.6 Sec (23.4-35.0) H 05/13/25 12:58
Sodium 133 mmol/L (135-145) L 05/16/25 05:23
Potassium 3.5 mmol/L (3.5-5.1) 05/16/25 05:23
BUN 15 mg/dl (7-17) 05/16/25 05:23
Glucose 87 mg/dl (70-99) 05/16/25 05:23
Calcium 8.1 mg/dl (8.4-10.2) L 05/16/25 05:23
Krj-R-Kcbnpqkchrv Pept 00962 pg/ml 05/13/25 23:50
LDL Cholesterol, Calc 103 mg/dl 05/14/25 05:41
Vitamin B12 Cancelled 05/14/25 09:58
Labs reviewed, hyponatremia (133), chronic normocytic anemia (Hgb 11.3), paltelets wnl, hypercarbia (CO2 35), INR wnl, D-dimer 0.72
Patient Allergies
No Known Allergies Allergy (Verified 10/08/24 08:07)
TTE (05/14/25)
SUMMARY
1. Left ventricular ejection fraction is normal with an ejection fraction of 54 % by Kirby's biplane method of discs.
2. Right ventricular size and systolic function are within normal limits.
3. Aortic sclerosis without stenosis.
4. Mild tricuspid regurgitation. Estimated pulmonary artery pressure of 34 mmHg assuming a right atrial pressure of 8 mmHg.
5. Compared to prior study dated 04/26/2025, there is little significant change.
MRI brain without contrast (05/15/25)
Numerous small foci of restricted diffusion involving the bilateral cerebellar hemispheres, occipital lobes and parietal lobes consistent with posterior cerebral artery territory infarctions.
Mild atrophy with sequelae of mild chronic small vessel ischemic disease and encephalomalacia within the left occipital lobe.
CTAH&N (05/13/25)
IMPRESSION:
1. No evidence of large vessel occlusion, or arterial dissection.
2. Extensive subcutaneous emphysema within the soft tissues of the head and neck, retropharyngeal space, and mediastinum. No apical pneumothorax on either side.
3. Small bilateral pleural effusions.
4. 2 cm right thyroid nodule. Consider nonemergent thyroid ultrasound for further characterization.
LDL Level: >70, statin ordered
Review of Systems
-
All other systems: Reviewed and negative
Physical Exam
-
Mildly lethargic, oriented to person, place, and time
Intact naming, repetition, and fluency
Mild inattention and delayed responsiveness
CN II-XII intact
Stregnth and sensation intact bilaterally
No ataxia on FNF bilaterally
Data Reviewed
-
CT-A: Image Reviewed
CT Head: Image Reviewed
MRI Head: Image Reviewed
Echocardiogram: Report Reviewed
Labs: Report Reviewed
--- NOTE | 2025-05-16 07:22 | W.PN.HOSP.TC ---
Today's Communication/Plan
-
see plan
Assessment / Plan
Assessment / Plan
Admission summary: 76-[id number] female with past medical history for CVA, Crohn's disease presents for department due to being found unresponsive by family just prior to arrival. denied MINOR, dizzy or syncope. denied fever, chills, chest pain. she
has LE edema which is chornic as per family. denied dysuria or hematuria. Patient status post hiatal hernia repair this past week at [facility]. She was taken off of her Eliquis for her atrial fibrillation, and has not yet restarted
it. She took OxyContin at about 10:30 AM. Her oxygenation was 40% on room air upon EMS arrival. Initially placed on high flow oxygen.
Gen: NAD, AAOx3, appears chronically ill.
Eyes: EOMI, no scleral icterus.
Neck: supple.
CV: tacyh, irreg/irreg, +S1/S2, no m/r/g.
Resp: slightly dec BS in the bases, otherwise CTAB, no rales, wheezes, or rhonchi.
Abd: +BS, soft, NT, ND
Skin: No rashes. trace RLE edema
Neuro: CN 2-12 intact, non-focal.
Psych: Normal mood and affect.
CXR 05/13: There is elevation of the left hemidiaphragm. There is an air collection under the diaphragm which is likely related to an elevated gastric bubble. There has been recent paraesophageal hernia surgery which could be the etiology of the
extensive subcutaneous emphysema. There is airspace disease in the right lower lobe which is likely atelectasis.
CTA chest 05/13:
1. No evidence of pulmonary embolism.
2. There is extensive subcutaneous emphysema as well as prominent pneumomediastinum. There are 2 gas containing foci within the posterior mediastinum adjacent to the distal esophagus which raises the possibility of distal esophageal injury as the
etiology of the pneumomediastinum. Consider direct visualization for further evaluation.
3. Moderate bilateral pleural effusions with partial collapse of the left lower lobe and adjacent atelectasis within the right lower lobe.
4. Trace right apical pneumothorax.
CTA head/neck 05/13:
1. No evidence of large vessel occlusion, or arterial dissection.
2. Extensive subcutaneous emphysema within the soft tissues of the head and neck, retropharyngeal space, and mediastinum. No apical pneumothorax on either side.
3. Small bilateral pleural effusions.
4. 2 cm right thyroid nodule. Consider nonemergent thyroid ultrasound for further characterization.
CT brain 05/13:
1. There are moderate changes of cortical atrophy and chronic ischemic disease.
2. There is an old infarct in the left cerebellum
3. There is extensive subcutaneous emphysema in the soft tissues of the neck.
Echo 05/14:
1. Left ventricular ejection fraction is normal with an ejection fraction of 54 % by Kirby's biplane method of discs.
2. Right ventricular size and systolic function are within normal limits.
3. Aortic sclerosis without stenosis.
4. Mild tricuspid regurgitation. Estimated pulmonary artery pressure of 34 mmHg assuming a right atrial pressure of 8 mmHg.
5. Compared to prior study dated 04/26/2025, there is little significant change.
Esophagram: No definitive extravasation of contrast that would confirm distal esophageal perforation.
MRI brain 05/15: Numerous small foci of restricted diffusion involving the bilateral cerebellar hemispheres, occipital lobes and parietal lobes consistent with posterior cerebral artery territory infarctions. Mild atrophy with sequelae of mild
chronic small vessel ischemic disease and encephalomalacia within the left occipital lobe.
CXR 05/16: Tiny bilateral apical pneumothoraces, more pronounced on the right. Small/moderate left-sided pleural effusion and a small right pleural effusion with adjacent airspace opacities which likely represents atelectasis. Extensive subcutaneous
edema and known pneumomediastinum which is similar in appearance to prior.
Acute hypoxic respiratory failure due to acute on chronic HFpEF:
-cards following
-proBNP 21,800
-acute metabolic encephalopathy likely due to acute hypoxic respiratory failure due to acute on chronic HFpEF, neuro following and MRI brain ordered
-was on high flow O2, now weaned to 1L NC O2
-cont IV lasix, daily wts, I/Os
-echo above
B/L posterior circulation distribution CVAs:
-currently on Eliquis, suspect CVAs due to Eliquis being held perioperatively for hiatal hernia repair (not an eliquis failure)
Pneumomediastinum:
-CT chest above
-Esophagram above, no esophageal leak
-prior physician discussed with surgery at [facility] who stated that that could be a normal finding postoperatively
-CXR 05/16 noted, suspect that B/L apical pneumothoraces related to recent hiatal hernia repair
Other problems:
Hypocalcemia, improved
Elevated troponin, nonischemic myocardial injury
Acute hyponatremia, improving with diuresis
ALBAN on CKD3b, resolved with diuresis (CRS)
Recent paraesophageal hernia repair/known subcutaneous emphysema
Anemia of chronic disease: Hb stable
PAF: cont Eliquis/BB
[facility]
h/o breast CA
h/o skin CA
HLD: cont statin
GERD: cont PPI
Anxiety: cont Xanax
FULL/Eliquis
Anticipated Discharge: 24 - 48 hours
Subjective/Interval History
-
Date of Service: May 16, 2025
Pt states she feels better than yesterday.
Objective Data
-
Labs:
Laboratory Results
05/16/25
05:23
WBC 5.5
Hgb 11.3 L
Hct 35.5 L
Plt Count 205
Sodium 133 L
Potassium 3.5
Chloride 93 L
Carbon Dioxide 35 H
BUN 15
Creatinine 0.6
Glucose 87
Calcium 8.1 L
Vital Signs:
Vital Signs
Temp Pulse Resp BP Pulse Ox
97.4 F 86 21 112/53 98
05/16/25 03:09 05/16/25 02:00 05/16/25 02:00 05/16/25 00:00 05/16/25 01:04
I&O
05/15/25 05/16/25 05/17/25
06:59 06:59 06:59
Intake Total 400 / 400
Output Total 1825 / 1825 1175 / 1175
Balance -1825 / -1825 -775 / -775
[2025-05-16] MEDS: PROTONIX 40 MG PO (08:45)
[2025-05-16] MEDS: TOPROL XL PO ×2 (08:45→09:02)
[2025-05-16] MEDS: LASIX 40 MG IV (08:46)
[2025-05-16] MEDS: ELIQUIS 5 MG PO ×2 (08:48→19:19)
[2025-05-16] MEDS: TOPROL XL 25 MG PO (09:03)
--- NOTE | 2025-05-16 09:47 | W.PN.CARDCBS ---
Today's Communication / Plan
-
Currently on IV Lasix, awaiting evaluation by renal but I would think she is ready to transition to oral Lasix today.
Keep potassium between 4 and 5 and magnesium between 2 and 3
She is now back on oral anticoagulation and I stressed to her the importance of medical compliance as it appears she had been previously missing doses of Eliquis even prior to her surgery
Impression / Plan
-
PCP: Dr. Johan Cunningham
Card: Dr. Erica Barrett
Impression:
Presented to the ER with abrupt change in mental status and hypoxia 05/13/2025: Toxic metabolic encephalopathy is likely diagnosis
Recent admission for paraesophageal hernia repair at [facility] 05/10/2025 until 05/11/2025
Recent admission for acute HF 10/08/2024 until 10/14/2024
Acute hypoxic respiratory failure
Change in mental status
Elevated troponin
Acute HFpEF
Acute on chronic B/L LE edema
Hyponatremia
Hypocalcemia
h/o Hypoalbuminemia
Paroxysmal Afib
Chronic Eliquis OAC
Last dose 05/05/2025 due to paraesophageal hernia repair surgery 05/10/2025
h/o CVA by MRI in [place] 2021
Hyperlipidemia
Crohn's disease
Anemia
Lexiscan nuclear stress test 05/03/2025: Perfusion imaging reveals a small area of moderately to severely decreased counts in the apex, at rest defect remains predominantly fixed consistent with likely soft tissue attenuation, EF 57%
Echo 04/21/2024: EF 55-60%, mild MR, thickened aortic valve leaflets with normal excursion
Echo 10/09/2024: EF 60 to 65%. Mild TR. PAP 42 to 45 mmHg
Echo 04/26/2025: EF 55 to 60%, mild TR, trivial pericardial effusion, unchanged from echo 09/2024
Echo 05/13/2025:
1. Left ventricular ejection fraction is normal with an ejection fraction of 54 % by Kirby's biplane method of discs.
2. Right ventricular size and systolic function are within normal limits.
3. Aortic sclerosis without stenosis.
4. Mild tricuspid regurgitation. Estimated pulmonary artery pressure of 34 mmHg assuming a right atrial pressure of 8 mmHg.
5. Compared to prior study dated 04/26/2025, there is little significant change.
Brain MRI: multifocal acute to subacute embolic appearing punctate infarcts most suggestive of a cardioembolic source
Plan:
Toxic metabolic encephalopathy
Likely related to hypoxia as well as electrolyte derangement with marked hyponatremia status post paraesophageal hernia repair (05/10/25)
Clinically improving
Sodium improving, up to 133.
Calcium improving after IV repletion, calcium up to 8.1
Acute on chronic heart failure with preserved ejection fraction
Likely precipitated by volume overload Jennifer-op
On IV lasix 40 mg BID, renal function improving, potassium 3.5, sodium up to 132, weight is down 10 pounds past 24 hrs (down 27# ? since adm), blood pressure stable
Renal note from yesterday plans to transition to oral Lasix today, will defer to renal.
Replete potassium, goal potassium should be between 4 and 5
Check magnesium in the morning, goal magnesium between 2 and 3
Follows daily weight, renal function/lytes
Wean O2 as able
Troponin peaked at 0.197.
No chest pain, no suggestion of ischemia or myocardial infarction on EKG, would not trend further.
Troponin peaked at 1.97 then reduced
Suspect nonischemic myocardial injury
No further coronary ischemia evaluation at this time
Patient has a history of paroxysmal A-fib, but currently in sinus rhythm
Would continue home metoprolol
Apixaban 5 mg twice daily has been resumed
Acute hypoxic respiratory failure in the setting of postsurgical state from paraesophageal hernia repair with subsequent pneumomediastinum and extensive subcutaneous emphysema as well as tiny right pneumothorax. Bilateral atelectasis and bilateral
pleural effusions
Pulmonary now following
Diuresis with IV Lasix
Pulmonary toilet
My read of chest x-ray from today May 16 suggest there has been some improvement in pleural effusions
Paraesophageal hernia repair
There had been some concern about the possibility of perforated esophagus with communication between the esophagus and the lung. However imaging finds this not to be the case,
Radiographic findings are typical expected findings after this type of surgery.
Cerebrovascular events:
h/o CVA by MRI in [place] 2021
Now with multifocal acute to subacute embolic appearing punctate infarcts most suggestive of a cardioembolic source
She was off of oral anticoagulation perioperatively for her paraesophageal hernia repair
Discussed with her family today and told she often is noncompliant with Eliquis, sometimes taking it just once a day and this predates her surgery. Patient does admit to this. I stressed to her the importance of compliance to reduce risk of
recurrent stroke
Discussed with neurology, resuming oral anticoagulation this hospital stay.
Chronic kidney disease stage IIIB based on creatinine 1.1 -1.2
Renal function is improving
Deconditioning
Physical therapy evaluating
Likely will need rehab/SNF stay
Discussed with son at bedside
All questions answered
Total time spent today was 50 minutes in preparing to see the patient, seeing the patient and coordination of care. This included review of recent laboratory evaluations, cardiact testing, imaging studies, primary care rtecords, specialty
consultations, hospital records, as well as personally interviewing and examining the patient, which included discussion of their tests, review/ordering medications, and communicating with other healthcare professionals and also treatment planning
as well as counseling.
Total time does not include separately billed tests performed on this date of service.
Patient presents to the ER today with hypoxia and change in mental status and cardiology is consulted for possible acute HF. Patient was last seen in the office on 12/30/2024 and at that time appeared stable on a regimen of Lasix 40 mg daily
according to medication reconciliation list in the office, but patient family reports dosing was more like 3 times a week. Patient has chronic LE edema. Last admission for heart failure was 09/2024 and at that point patient diuresed to a dry weight
of 147lbs. In the interim patient saw a surgeon at [facility] and was offered paraesophageal hernia repair surgery. Patient had preoperative Lexiscan nuclear stress test on 05/03/2025 that was negative for ischemia. Patient had echocardiogram 04/26/2025
that showed preserved EF without significant valve disease. Patient's surgeon told her to stop Eliquis on 05/05/2025 and patient has surgery on 05/10/2025 at [facility]. Patient's family reports surgery was considered a success and patient has had
symptomatic improvement. Patient has been following a liquid diet and was able to return home on 05/11/2025. Family has been with the patient at all times and this morning she awoke in her usual state of health, ate some Jell-O took a pain
medication and then lay down to take a nap. The patient's son checked on her at around 930 and the patient was unresponsive and did not awaken easily and 911 was called. Patient was noted to be hypoxic at 40% on room air and supplemental oxygen
therapy was started. In the emergency room initially patient was responsive to pain with palpation of the abdomen. CT of the head without acute intracranial abnormality and neurology saw the patient for possible stroke alert, but they do not feel
patient's presentation is consistent with CVA. Additional labs then returned including a proBNP of 21,800 which is her highest level on record and CT of the chest suggested small B/L pleural effusions. Patient was ordered Lasix 40 mg IV by ER
attending, but has yet to receive that dose. Sodium level was 123 initially.
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
Subjective
Date of Service: May 16, 2025
Denies chest pain, feels her breathing is better.
Objective
Labs:
05/16/25 05:23
05/16/25 05:23
Labs
Hgb 11.3 g/dL (12.0-16.0) L 05/16/25 05:23
Hct 35.5 % (37.0-47.0) L 05/16/25 05:23
Plt Count 205 10^3/uL (130-400) 05/16/25 05:23
PT 14.8 Sec (11.4-14.6) H 05/13/25 12:58
INR 1.18 05/13/25 12:58
APTT 42.6 Sec (23.4-35.0) H 05/13/25 12:58
Sodium 133 mmol/L (135-145) L 05/16/25 05:23
Potassium 3.5 mmol/L (3.5-5.1) 05/16/25 05:23
BUN 15 mg/dl (7-17) 05/16/25 05:23
Creatinine 0.6 mg/dL (0.6-1.0) 05/16/25 05:23
Glucose 87 mg/dl (70-99) 05/16/25 05:23
Troponins
05/13/25 05/13/25 05/13/25
12:58 18:06 23:46
Troponin I 0.103 H* 0.171 H* D 0.197 H*
05/14/25
05:41
Troponin I 0.168 H*
Vital Signs and I&O:
Vital Signs
Temp Pulse Resp BP Pulse Ox
97.4 F 114 21 114/71 98
05/16/25 07:48 05/16/25 09:03 05/16/25 02:00 05/16/25 09:03 05/16/25 01:04
Vital Signs
Temp Pulse Resp BP Pulse Ox
97.4 F 114 21 114/71 98
05/16/25 07:48 05/16/25 09:03 05/16/25 02:00 05/16/25 09:03 05/16/25 01:04
Intake & Output
05/14/25 05/15/25 05/16/25 05/17/25
06:59 06:59 06:59 06:59
Intake Total 400 / 400
Output Total 2700 / 2700 1825 / 1825 1175 / 1175
Balance -2700 / -2700 -1825 / -1825 -775 / -775
Physical Exam
Physical Exam
Well-appearing, sitting up in chair more conversive and interactive than yesterday.
Regular rate and rhythm normal S1 and S2, no S3 no S4.
Lungs decreased breath sounds at both bases, no rales no wheezes
Extremities +2 pretibial edema bilaterally
--- NOTE | 2025-05-16 12:38 | W.PN.PUL3 ---
Today's Communication / Plan
-
- Continue diuresis with improving pulmonary congestion
- Follow-up chest x-ray in a.m.
Assessment
-
85-year-old female with prior history of CVA, Crohn's disease, A-fib on Eliquis presents to ER for being found unresponsive by family just prior to arrival. She was recently admitted at [facility] for paraesophageal hernia repair,
taken off her Eliquis for procedure. On arrival to ER her O2 malachi was 40%, she was placed on high flow nasal cannula. CT imaging demonstrating extensive subcutaneous emphysema as well as prominent pneumomediastinum, 2 gas containing foci within
the posterior mediastinum suggesting distal esophageal injury, moderate bilateral pleural effusions with collapse of the lower lobe. Admitted to IMU, we are consulted for evaluation.
Acute hypoxic respiratory failure
Pneumomediastinum, subcutaneous emphysema
Suspect perforated esophageal injury with 2 gas containing foci
Status post recent paraesophageal hernia repair
Moderate bilateral pleural effusions, likely acute on chronic heart failure
Conditions present prior to admission
breast cancer s/p lumpectomy
Crohn's disease
skin cancer bcc nose/MOHS
Hyperlipidemia
HTN
GERD with large hiatal hernia
Iron def anemia
Paroxysmal atrial fibrillation on Eliquis
Patent foramen ovale
Obesity
Total hip replacement surgery after fall, left 12/2021
Septoplasty
History of GI Bleed 2019
[facility] - heart failure 10/08-
Plan
Hypoxemia noted on arrival, placed on HFNC, now transitioned to nasal cannula 2 ltr, improving
No oxygen was needed at baseline, home
Home O2 evaluation eventually
Responding well to IV diuresis with improving pulmonary congestion on chest x-ray.
Prior history of lung disease is NOT noted--nonsmoker
No PFTs in past for review
Suspect patient has postoperative changes from recent paraesophageal hernia repair
She has diffuse severe subcutaneous emphysema, pneumomediastinum, small pneumothorax
Care team has communicated with surgeon at [facility], this was felt to be expected postoperative changes
Gastrografin study negative for perforation
Low threshold for transfer if she were to clinically deteriorate
Continue IV lasix for diuresis, cardiology service on casae
- F/U CXR with improving pulmonary congestion, stable pneumomediastinum and pneumothorax
- Chest x-ray follow-up in a.m.
Case discussed with family at bedside
Will need outpatient pulmonary evaluation for PFTs and 6MWT
We will follow
Diagnostic Data
Chest X-Ray: 05/13/25-There is elevation of the left hemidiaphragm. There is an air collection under the diaphragm which is likely related to an elevated gastric bubble. There has been recent paraesophageal hernia surgery which could be the etiology
of the extensive subcutaneous emphysema.
CT Scan: 05/13/25-1. No evidence of pulmonary embolism.
2. There is extensive subcutaneous emphysema as well as prominent pneumomediastinum. There are 2 gas containing foci within the posterior mediastinum adjacent to the distal esophagus which raises the possibility of distal esophageal injury as the
etiology of the pneumomediastinum. Consider direct visualization for further evaluation.
3. Moderate bilateral pleural effusions with partial collapse of the left lower lobe and adjacent atelectasis within the right lower lobe.
4. Trace right apical pneumothorax.
Echo: 04/26/25-1. Normal left ventricular chamber size myocardial thickness and systolic function. Left ventricular ejection fraction 55 to 60%.
2. Mild tricuspid regurgitation.
3. Trivial pericardial effusion is present.
4. Technically fair study.
5. Compared to previous echo from September 2024, findings are similar.
10/09/24- Normal left ventricular size, wall thickness and systolic function with normal regional wall motion Left ventricular ejection fraction visually estimated 60-65% Normal RV size and systolic function Thickened mitral valve leaflets with no
significant mitral regurgitation Trileaflet, mildly sclerotic aortic valve without stenosis. No significant aortic regurgitation. Mild tricuspid regurgitation
Estimated pulmonary artery pressure of 42-45 mmHg. Assuming a right atrial pressure of 5-8 mmHg. Trivial pericardial effusion Compared to prior study dated 04/21/2024, LV systolic function is preserved/vigorous. Pulmonary pressures slightly
increased compared to prior, previously estimated 25 mmHg.
PFT's:
Reports and relevant images were personally reviewed.
Total time spent on this consultation __43__ minutes which includes review of history, physical exam, medications, laboratory data, personal review of imaging, extensive review of outpatient records, discussion with care team and respiratory therapy.
Subjective Data
-
Date of Service:
Date of Service: May 16, 2025
Subjective:
Comfortably sitting in no acute distress.
Review of Systems
Genitourinary: Other (No new symptoms reported)
Objective Data
Data Reviewed
Vital Signs / I&O / Oxygen:
Vital Signs
Temp Pulse Resp BP Pulse Ox
98.2 F 114 21 114/71 98
05/16/25 11:00 05/16/25 09:03 05/16/25 02:00 05/16/25 09:03 05/16/25 01:04
Intake and Output
05/15/25 05/16/25 05/17/25
06:59 06:59 06:59
Intake Total 400 / 400
Output Total 1825 / 1825 1175 / 1175
Balance -1825 / -1825 -775 / -775
SaO2 98
Nasal Cannula flow liters per 2
minute
Physical Exam
General: Comfortable
HEENT: Normocephalic
Cardiovascular: S1-S2
Respiratory: Clear and Non-Labored Respirations
GI: Soft and Non Distended
Neurology: Awake and Alert
Skin: Warm
Labs/Micro/Reports
Lab Data
05/16/25 05:23
05/16/25 05:23
--- NOTE | 2025-05-16 12:51 | W.PN.NEPH.PH ---
Today's Communication / Plan
-
Convert to p.o. Lasix
Assessment/Plan
-
Impression
hyponatremia at 123 with altered mental status in the setting of hypoxia
hypocalcemia
chronic kidney disease stage IIIB based on creatinine 1.1 -1.2
emphysema on imaging
CHF with preserved EF as of 2024
atrial fibrillation
Plan
convert to po lasix 40 mg twice daily
follow BMP
-
-
Date of Service: May 16, 2025
CC / HPI / ROS
-
Chief Complaint:
hyponatremia
History of Present Illness:
Na up to 133
Calcium stable 8.1
CR stable 0.6
BP stable
diuresing well with IV lasix for decompensated HFpEF
Review of Systems:
no CP/SOB
Labs
-
Labs:
WBC 5.5 10^3/uL (4.8-10.8) 05/16/25 05:23
RBC 4.01 10^6/uL (4.20-5.40) L 05/16/25 05:23
Hgb 11.3 g/dL (12.0-16.0) L 05/16/25 05:23
Hct 35.5 % (37.0-47.0) L 05/16/25 05:23
Plt Count 205 10^3/uL (130-400) 05/16/25 05:23
Sodium 133 mmol/L (135-145) L 05/16/25 05:23
Potassium 3.5 mmol/L (3.5-5.1) 05/16/25 05:23
Chloride 93 mmol/L (98-107) L 05/16/25 05:23
Carbon Dioxide 35 mmol/L (22-30) H 05/16/25 05:23
BUN 15 mg/dl (7-17) 05/16/25 05:23
Creatinine 0.6 mg/dL (0.6-1.0) 05/16/25 05:23
eGFR > 60.00 05/16/25 05:23
Glucose 87 mg/dl (70-99) 05/16/25 05:23
Calcium 8.1 mg/dl (8.4-10.2) L 05/16/25 05:23
Gdf-O-Iktjougmrcn Pept [id number] pg/ml 05/13/25 23:50
Albumin 2.9 g/dl (3.5-5.0) L 05/13/25 18:06
Physical Exam
-
Vital Signs:
Vital Signs
Temp Pulse Resp BP Pulse Ox
98.2 F 114 21 114/71 98
05/16/25 11:00 05/16/25 09:03 05/16/25 02:00 05/16/25 09:03 05/16/25 01:04
Cardiovascular:: Regular rate and rhythm
Respiratory:: Bilateral: Coarse
Lung Excursion:: Normal
Abdomen:: Nontender and Soft
Bowel Sounds:: Normal
Extremity Edema:: +1: Bilateral:
--- NOTE | 2025-05-16 13:45 | W.PN.UPDATE ---
Update Note
Progress Note Update
Reviewed telemetry, heart rates have been trending higher. Now averaging over 100 bpm.
Will increase metoprolol succinate from 25 mg twice daily to 50 mg twice daily and follow heart rate and blood pressure closely.
Would definitely like to follow her another 48 hours to best titrate heart rate control and best assess heart rate control prior to discharge home as I am concerned that rapid heart rate would contribute to reexacerbation of heart failure with
preserved ejection fraction and clinical decompensation with readmission.
--- NOTE | 2025-05-16 18:24 | PTCARENOTE ---
see nursing flowsheet. assessment as charted. pt hypotensive this afternoon but denies dizziness. bp in upper 80s systolic at times. MAP greater than 65. physicians made aware, lasix discontinued and tele transfer cancelled.
[2025-05-16] MEDS: LIPITOR 80 MG PO (19:19)
[2025-05-16] MEDS: TOPROL XL 50 MG PO (19:22)
[2025-05-16] MEDS: XANAX 1 MG PO (21:35)
[2025-05-17] VITALS (12 sets, daily range): BP systolic 96–113; BP diastolic 55–80; PULSE 110
--- NOTE | 2025-05-17 04:44 | PTCARENOTE ---
BPs stable throughout the night. Pt denies complaints. Maintains SR on CM. 88% on RA, 1L O2 replaced. Hygiene and toileting performed as needed. Call bautista within reach. Pt ringing appropriately.
[2025-05-17 06:18] LABS: Blood Urea Nitrogen 13 mg/dl (7-17); Calcium 8.0 mg/dl (8.4-10.2); Carbon Dioxide 36 mmol/L (22-30); Chloride 92 mmol/L (98-107); Glucose 92 mg/dl (70-99); Potassium 3.4 mmol/L (3.5-5.1); Sodium 131 mmol/L (135-145); eGFR > 60.00
[2025-05-17 06:35] LABS: Hematocrit 33.7 % (37.0-47.0); Hemoglobin 10.7 g/dL (12.0-16.0); Mean Corp Hgb Conc. 31.8 g/dL (33.0-37.0); Mean Corpuscular Volume 87.1 fL (81.0-99.0); Platelet Count 212 10^3/uL (130-400); Red Cell Dist. Width 15.3 % (11.5-14.5)
[2025-05-17] MEDS: PROTONIX 40 MG PO (08:17)
[2025-05-17] MEDS: ELIQUIS 5 MG PO ×2 (08:17→20:59)
[2025-05-17] MEDS: TOPROL XL 50 MG PO (08:17)
--- NOTE | 2025-05-17 08:53 | W.PN.HOSP.TC ---
Today's Communication/Plan
-
see plan
Assessment / Plan
Assessment / Plan
Admission summary: [id number] female with past medical history for CVA, Crohn's disease presents for department due to being found unresponsive by family just prior to arrival. denied MINOR, dizzy or syncope. denied fever, chills, chest pain. she
has LE edema which is chornic as per family. denied dysuria or hematuria. Patient status post hiatal hernia repair this past week at [facility]. She was taken off of her Eliquis for her atrial fibrillation, and has not yet restarted
it. She took OxyContin at about 10:30 AM. Her oxygenation was 40% on room air upon EMS arrival. Initially placed on high flow oxygen.
Gen: NAD, AAOx3, appears chronically ill.
Eyes: EOMI, no scleral icterus.
Neck: supple.
CV: RRR with freq premature beats, +S1/S2, no m/r/g.
Resp: CTAB, no rales, wheezes, or rhonchi.
Abd: +BS, soft, NT, ND
Skin: No rashes. 1+ B/L ankle edema
Neuro: CN 2-12 intact, non-focal.
Psych: Normal mood and affect.
CXR 05/13: There is elevation of the left hemidiaphragm. There is an air collection under the diaphragm which is likely related to an elevated gastric bubble. There has been recent paraesophageal hernia surgery which could be the etiology of the
extensive subcutaneous emphysema. There is airspace disease in the right lower lobe which is likely atelectasis.
CTA chest 05/13:
1. No evidence of pulmonary embolism.
2. There is extensive subcutaneous emphysema as well as prominent pneumomediastinum. There are 2 gas containing foci within the posterior mediastinum adjacent to the distal esophagus which raises the possibility of distal esophageal injury as the
etiology of the pneumomediastinum. Consider direct visualization for further evaluation.
3. Moderate bilateral pleural effusions with partial collapse of the left lower lobe and adjacent atelectasis within the right lower lobe.
4. Trace right apical pneumothorax.
CTA head/neck 05/13:
1. No evidence of large vessel occlusion, or arterial dissection.
2. Extensive subcutaneous emphysema within the soft tissues of the head and neck, retropharyngeal space, and mediastinum. No apical pneumothorax on either side.
3. Small bilateral pleural effusions.
4. 2 cm right thyroid nodule. Consider nonemergent thyroid ultrasound for further characterization.
CT brain 05/13:
1. There are moderate changes of cortical atrophy and chronic ischemic disease.
2. There is an old infarct in the left cerebellum
3. There is extensive subcutaneous emphysema in the soft tissues of the neck.
Echo 05/14:
1. Left ventricular ejection fraction is normal with an ejection fraction of 54 % by Kirby's biplane method of discs.
2. Right ventricular size and systolic function are within normal limits.
3. Aortic sclerosis without stenosis.
4. Mild tricuspid regurgitation. Estimated pulmonary artery pressure of 34 mmHg assuming a right atrial pressure of 8 mmHg.
5. Compared to prior study dated 04/26/2025, there is little significant change.
Esophagram: No definitive extravasation of contrast that would confirm distal esophageal perforation.
MRI brain 05/15: Numerous small foci of restricted diffusion involving the bilateral cerebellar hemispheres, occipital lobes and parietal lobes consistent with posterior cerebral artery territory infarctions. Mild atrophy with sequelae of mild
chronic small vessel ischemic disease and encephalomalacia within the left occipital lobe.
CXR 05/16: Tiny bilateral apical pneumothoraces, more pronounced on the right. Small/moderate left-sided pleural effusion and a small right pleural effusion with adjacent airspace opacities which likely represents atelectasis. Extensive subcutaneous
edema and known pneumomediastinum which is similar in appearance to prior.
Acute hypoxic respiratory failure due to acute on chronic HFpEF:
-cards following
-proBNP 21,800
-echo above
-acute metabolic encephalopathy likely due to acute hypoxic respiratory failure due to acute on chronic HFpEF. Also, posterior strokes may have contributed to acute encephalopathy.
-was on high flow O2, now weaned to 1L NC O2
-cont IV lasix if BP allows (last dose 05/16AM), daily wts, I/Os
B/L posterior circulation distribution CVAs:
-currently on Eliquis, suspect CVAs due to Eliquis being held perioperatively for hiatal hernia repair (not an eliquis failure)
-cont statin
Pneumomediastinum:
-CT chest above
-Esophagram above, no esophageal leak
-prior physician discussed with surgery at [place] who stated that that could be a normal finding postoperatively
-CXR 05/16 noted, suspect that B/L apical pneumothoraces related to recent hiatal hernia repair
Other problems:
Hypocalcemia, improved
Hypokalemia: 40meq PO K, check Mg
Elevated troponin, nonischemic myocardial injury
Acute hyponatremia, improving with diuresis
ALBAN on CKD3b, resolved with diuresis (CRS)
Recent paraesophageal hernia repair/known subcutaneous emphysema
Anemia of chronic disease: Hb stable
PAF: cont Eliquis/BB
Crohn�s disease: on Skyrizi
h/o breast CA
h/o skin CA
HLD: cont statin
GERD: cont PPI
Anxiety: cont Xanax
FULL/Eliquis
Anticipated Discharge: 24 - 48 hours
Subjective/Interval History
-
Date of Service: May 17, 2025
No new complaints.
Objective Data
-
Labs:
Laboratory Results
05/17/25
05:42
WBC 5.3
Hgb 10.7 L
Hct 33.7 L
Plt Count 212
Sodium 131 L
Potassium 3.4 L
Chloride 92 L
Carbon Dioxide 36 H
BUN 13
Creatinine 0.6
Glucose 92
Calcium 8.0 L
Vital Signs:
Vital Signs
Temp Pulse Resp BP Pulse Ox
97.3 F 78 24 103/60 94
05/17/25 07:35 05/17/25 06:00 05/17/25 06:00 05/17/25 06:00 05/17/25 04:46
I&O
05/16/25 05/17/25 05/18/25
06:59 06:59 06:59
Intake Total 400 / 400 480 / 480
Output Total 1175 / 1175 600 / 600
Balance -775 / -775 -600 / -600 480 / 480
--- NOTE | 2025-05-17 09:21 | W.PN.CARDCBS ---
Today's Communication / Plan
-
Telemetry with episodes of atrial tachycardia
Increase Toprol to 100 mg p.o. twice daily
Nephrology managing diuretics with hyponatremia
Impression / Plan
-
PCP: Dr. Johan Cunningham
Card: Dr. Erica Barrett
Impression:
Presented to the ER with abrupt change in mental status and hypoxia 05/13/2025: Toxic metabolic encephalopathy is likely diagnosis
Recent admission for paraesophageal hernia repair at [facility] 05/10/2025 until 05/11/2025
Recent admission for acute HF 10/08/2024 until 10/14/2024
Acute hypoxic respiratory failure
Change in mental status
Elevated troponin, Suspect nonischemic myocardial injury
Acute HFpEF
Acute on chronic B/L LE edema
Hyponatremia
Hypocalcemia
h/o Hypoalbuminemia
Paroxysmal Afib
Chronic Eliquis OAC
Last dose 05/05/2025 due to paraesophageal hernia repair surgery 05/10/2025
h/o CVA by MRI in [place] 2021
Hyperlipidemia
Crohn's disease
Anemia
Lexiscan nuclear stress test 05/03/2025: Perfusion imaging reveals a small area of moderately to severely decreased counts in the apex, at rest defect remains predominantly fixed consistent with likely soft tissue attenuation, EF 57%
Echo 04/21/2024: EF 55-60%, mild MR, thickened aortic valve leaflets with normal excursion
Echo 10/09/2024: EF 60 to 65%. Mild TR. PAP 42 to 45 mmHg
Echo 04/26/2025: EF 55 to 60%, mild TR, trivial pericardial effusion, unchanged from echo 09/2024
Echo 05/13/2025:
1. Left ventricular ejection fraction is normal with an ejection fraction of 54 % by Kirby's biplane method of discs.
2. Right ventricular size and systolic function are within normal limits.
3. Aortic sclerosis without stenosis.
4. Mild tricuspid regurgitation. Estimated pulmonary artery pressure of 34 mmHg assuming a right atrial pressure of 8 mmHg.
5. Compared to prior study dated 04/26/2025, there is little significant change.
Brain MRI: multifocal acute to subacute embolic appearing punctate infarcts most suggestive of a cardioembolic source
Plan:
Telemetry with episodes of atrial tachycardia
Will increase Toprol to 100 mg p.o. twice daily
She remains on 1 L of oxygen but volume status appears reasonable
Nephrology is managing diuretics with hyponatremia
Troponin peaked at 0.197, Suspect nonischemic myocardial injury
Patient has a history of paroxysmal A-fib, but currently in sinus rhythm
Would continue home metoprolol
Apixaban 5 mg twice daily has been resumed
Diet has been managed by surgery status post paraesophageal surgery
Likely will need rehab/SNF stay
Patient presents to the ER today with hypoxia and change in mental status and cardiology is consulted for possible acute HF. Patient was last seen in the office on 12/30/2024 and at that time appeared stable on a regimen of Lasix 40 mg daily
according to medication reconciliation list in the office, but patient family reports dosing was more like 3 times a week. Patient has chronic LE edema. Last admission for heart failure was 09/2024 and at that point patient diuresed to a dry weight
of 147lbs. In the interim patient saw a surgeon at [facility] and was offered paraesophageal hernia repair surgery. Patient had preoperative Lexiscan nuclear stress test on 05/03/2025 that was negative for ischemia. Patient had echocardiogram 04/26/2025
that showed preserved EF without significant valve disease. Patient's surgeon told her to stop Eliquis on 05/05/2025 and patient has surgery on 05/10/2025 at [facility]. Patient's family reports surgery was considered a success and patient has had
symptomatic improvement. Patient has been following a liquid diet and was able to return home on 05/11/2025. Family has been with the patient at all times and this morning she awoke in her usual state of health, ate some Jell-O took a pain
medication and then lay down to take a nap. The patient's son checked on her at around 930 and the patient was unresponsive and did not awaken easily and 911 was called. Patient was noted to be hypoxic at 40% on room air and supplemental oxygen
therapy was started. In the emergency room initially patient was responsive to pain with palpation of the abdomen. CT of the head without acute intracranial abnormality and neurology saw the patient for possible stroke alert, but they do not feel
patient's presentation is consistent with CVA. Additional labs then returned including a proBNP of 21,800 which is her highest level on record and CT of the chest suggested small B/L pleural effusions. Patient was ordered Lasix 40 mg IV by ER
attending, but has yet to receive that dose. Sodium level was 123 initially.
Progress Note - Stripper Soft Plastic
Subjective
Date of Service: May 17, 2025
No complaints
Objective
Labs:
05/17/25 05:42
05/17/25 05:42
Labs
Hgb 10.7 g/dL (12.0-16.0) L 05/17/25 05:42
Hct 33.7 % (37.0-47.0) L 05/17/25 05:42
Plt Count 212 10^3/uL (130-400) 05/17/25 05:42
PT 14.8 Sec (11.4-14.6) H 05/13/25 12:58
INR 1.18 05/13/25 12:58
APTT 42.6 Sec (23.4-35.0) H 05/13/25 12:58
Sodium 131 mmol/L (135-145) L 05/17/25 05:42
Potassium 3.4 mmol/L (3.5-5.1) L 05/17/25 05:42
BUN 13 mg/dl (7-17) 05/17/25 05:42
Creatinine 0.6 mg/dL (0.6-1.0) 05/17/25 05:42
Glucose 92 mg/dl (70-99) 05/17/25 05:42
Vital Signs and I&O:
Vital Signs
Temp Pulse Resp BP Pulse Ox
97.3 F 78 24 103/60 94
05/17/25 07:35 05/17/25 06:00 05/17/25 06:00 05/17/25 06:00 05/17/25 04:46
Vital Signs
Temp Pulse Resp BP Pulse Ox
97.3 F 78 24 103/60 94
05/17/25 07:35 05/17/25 06:00 05/17/25 06:00 05/17/25 06:00 05/17/25 04:46
Intake & Output
05/15/25 05/16/25 05/17/25 05/18/25
06:59 06:59 06:59 06:59
Intake Total 400 / 400 480 / 480
Output Total 1825 / 1825 1175 / 1175 600 / 600
Balance -1825 / -1825 -775 / -775 -600 / -600 480 / 480
Physical Exam
Physical Exam
General: Well developed, well nourished in NAD.
Neck: Supple, no JVD, HJR, carotids +2 B/L, no bruits bilaterally.
Heart: Non displaced PMI, RRR, no murmurs, No S3, S4, no rubs.
Lungs: Scattered rhonchi
Extremities: No clubbing, cyanosis or edema bilaterally.
Neuro: Grossly nonfocal, awake, alert and oriented x3.
--- NOTE | 2025-05-17 09:50 | W.PN.PUL.V3 ---
Today's Communication / Plan
-
Wean oxygen
Diuresis as tolerated
Assessment
-
85-year-old female with prior history of CVA, Crohn's disease, A-fib on Eliquis presents to ER for being found unresponsive by family just prior to arrival. She was recently admitted at [facility] for paraesophageal hernia repair,
taken off her Eliquis for procedure. On arrival to ER her O2 malachi was 40%, she was placed on high flow nasal cannula. CT imaging demonstrating extensive subcutaneous emphysema as well as prominent pneumomediastinum, 2 gas containing foci within
the posterior mediastinum suggesting distal esophageal injury, moderate bilateral pleural effusions with collapse of the lower lobe. Admitted to IMU, we are consulted for evaluation.
Acute hypoxic respiratory failure
Pneumomediastinum, subcutaneous emphysema
Suspect perforated esophageal injury with 2 gas containing foci
Status post recent paraesophageal hernia repair
Moderate bilateral pleural effusions, likely acute on chronic heart failure
Conditions present prior to admission:
breast cancer s/p lumpectomy
Crohn's disease
skin cancer bcc nose/MOHS
Hyperlipidemia
HTN
GERD with large hiatal hernia
Iron def anemia
Paroxysmal atrial fibrillation on Eliquis
Patent foramen ovale
Obesity
Total hip replacement surgery after fall, left 12/2021
Septoplasty
History of GI Bleed 2019
DH - heart failure 10/08-
Plan
Respiratory status stable
Continue supplemental oxygen as needed
Assess discharge supplemental oxygen needs prior to discharge
Follow radiographically
Suspect patient has postoperative changes from recent paraesophageal hernia repair
She has diffuse severe subcutaneous emphysema, pneumomediastinum, small pneumothorax
Care team has communicated with surgeon at [facility], this was felt to be expected postoperative changes
Gastrografin study negative for perforation
Diuresis as tolerated
Monitor renal function, electrolytes, intake/output, lower extremity edema and weight
Replace electrolytes as needed
Monitor for atrial tachycardia
Toprol increased
Cardiology following-correspondence reviewed
Monitor renal function
Monitor electrolytes
Nephrology following-correspondence reviewed
DVT prophylaxis- On Eliquis
GI prophylaxis-on pantoprazole
Nutrition-patient requesting diet advancement
Early mobilization
Will need outpatient pulmonary evaluation for PFTs and 6MWT
Diagnostic Data
Chest X-Ray: 05/13/25-There is elevation of the left hemidiaphragm. There is an air collection under the diaphragm which is likely related to an elevated gastric bubble. There has been recent paraesophageal hernia surgery which could be the etiology
of the extensive subcutaneous emphysema.
CT Scan: 05/13/25-1. No evidence of pulmonary embolism.
2. There is extensive subcutaneous emphysema as well as prominent pneumomediastinum. There are 2 gas containing foci within the posterior mediastinum adjacent to the distal esophagus which raises the possibility of distal esophageal injury as the
etiology of the pneumomediastinum. Consider direct visualization for further evaluation.
3. Moderate bilateral pleural effusions with partial collapse of the left lower lobe and adjacent atelectasis within the right lower lobe.
4. Trace right apical pneumothorax.
Echo: 04/26/25-1. Normal left ventricular chamber size myocardial thickness and systolic function. Left ventricular ejection fraction 55 to 60%.
2. Mild tricuspid regurgitation.
3. Trivial pericardial effusion is present.
4. Technically fair study.
5. Compared to previous echo from September 2024, findings are similar.
10/09/24- Normal left ventricular size, wall thickness and systolic function with normal regional wall motion Left ventricular ejection fraction visually estimated 60-65% Normal RV size and systolic function Thickened mitral valve leaflets with no
significant mitral regurgitation Trileaflet, mildly sclerotic aortic valve without stenosis. No significant aortic regurgitation. Mild tricuspid regurgitation
Estimated pulmonary artery pressure of 42-45 mmHg. Assuming a right atrial pressure of 5-8 mmHg. Trivial pericardial effusion Compared to prior study dated 04/21/2024, LV systolic function is preserved/vigorous. Pulmonary pressures slightly
increased compared to prior, previously estimated 25 mmHg.
.
Subjective Data
-
Date of Service:
Date of Service: May 17, 2025
Chief Complaint: Pulmonary Follow Up and Dyspnea Follow Up
Subjective:
Feels better, no complaints of shortness of breath, productive cough, chest pain
Review of Systems
General: Other (Per HPI)
Objective Data
Data Reviewed
Vital Signs / I&O:
Vital Signs
Temp Pulse Resp BP Pulse Ox
97.3 F 78 24 103/60 94
05/17/25 07:35 05/17/25 06:00 05/17/25 06:00 05/17/25 06:00 05/17/25 04:46
Intake and Output
05/16/25 05/17/25 05/18/25
06:59 06:59 06:59
Intake Total 400 / 400 480 / 480
Output Total 1175 / 1175 600 / 600
Balance -775 / -775 -600 / -600 480 / 480
SaO2: 94
Nasal Cannula flow liters per minute: 1
Physical Exam
General: Respiratory Distress (n) and Comfortable
HEENT: Normocephalic
Cardiovascular: Regular Rhythm
Respiratory: Clear and Non-Labored Respirations
GI: Soft and Non Distended
Neurology: Awake, Alert and No Motor Deficits
Skin: Warm, Good Color, Cyanosis (n) and Jaundice (n)
Labs/Micro/Reports
Lab Data
05/17/25 05:42
05/17/25 05:42
--- NOTE | 2025-05-17 09:58 | W.PN.NEPH.PH ---
Addendum entered and electronically signed by Erasmo Huffman, 05/17/25 10:07:
Disregard assessment and plan as incorrect documentation
Diuretics currently on hold with low blood pressure
Creatinine stable 0.6
Continue fluid restriction as discussed with the family
Current sodium 131
Original Note:
Today's Communication / Plan
-
Diuretics on hold
Echo pending
Assessment/Plan
-
Impression
hyponatremia at 123 with altered mental status in the setting of hypoxia
hypocalcemia
chronic kidney disease stage IIIB based on creatinine 1.1 -1.2
emphysema on imaging
CHF with preserved EF as of 2024
atrial fibrillation
Plan
Lasix held
Repeat echo will be done today
Creatinine up slightly 1.5
Weight is down from admission
follow BMP
-
-
Date of Service: May 17, 2025
CC / HPI / ROS
-
Chief Complaint:
hyponatremia
History of Present Illness:
Na up to 133
Calcium stable 8.1
CR increasing
BP stable
Review of Systems:
no CP/SOB
Labs
-
Labs:
WBC 5.3 10^3/uL (4.8-10.8) 05/17/25 05:42
RBC 3.87 10^6/uL (4.20-5.40) L 05/17/25 05:42
Hgb 10.7 g/dL (12.0-16.0) L 05/17/25 05:42
Hct 33.7 % (37.0-47.0) L 05/17/25 05:42
Plt Count 212 10^3/uL (130-400) 05/17/25 05:42
Sodium 131 mmol/L (135-145) L 05/17/25 05:42
Potassium 3.4 mmol/L (3.5-5.1) L 05/17/25 05:42
Chloride 92 mmol/L (98-107) L 05/17/25 05:42
Carbon Dioxide 36 mmol/L (22-30) H 05/17/25 05:42
BUN 13 mg/dl (7-17) 05/17/25 05:42
Creatinine 0.6 mg/dL (0.6-1.0) 05/17/25 05:42
eGFR > 60.00 05/17/25 05:42
Glucose 92 mg/dl (70-99) 05/17/25 05:42
Calcium 8.0 mg/dl (8.4-10.2) L 05/17/25 05:42
Dfx-C-Elgpyjpayyb Pept 49684 pg/ml 05/13/25 23:50
Albumin 2.9 g/dl (3.5-5.0) L 05/13/25 18:06
Physical Exam
-
Vital Signs:
Vital Signs
Temp Pulse Resp BP Pulse Ox
97.3 F 78 24 103/60 94
05/17/25 07:35 05/17/25 06:00 05/17/25 06:00 05/17/25 06:00 05/17/25 09:50
Cardiovascular:: Regular rate and rhythm
Respiratory:: Bilateral: Coarse
Lung Excursion:: Normal
Abdomen:: Nontender and Soft
Bowel Sounds:: Normal
Extremity Edema:: +1: Bilateral:
[2025-05-17] MEDS: KCL 40 MEQ PO (10:06)
--- NOTE | 2025-05-17 10:07 | W.PN.UPDATE ---
Update Note
Progress Note Update
Please refer to addendum on progress note as there was initial incorrect documentation
Continue with fluid restriction
Diuretics currently held with low blood pressures
[2025-05-17 10:29] LABS: Magnesium 1.4 mg/dl (1.6-2.3)
--- NOTE | 2025-05-17 11:01 | PTCARENOTE ---
diet upgraded to low residue considering latest hernia repair surgery recommendations. patient tolerating the diet. ambulated with PT in the jensen. 1L O2 via nasal cannula with POX in mid 90s
[2025-05-17] MEDS: MAGNESIUM SULFATE 100 IV (14:18)
--- NOTE | 2025-05-17 15:01 | PTCARENOTE ---
family brought up patient's recent xray from this morning that says 'New focus of patchy parenchymal opacity involving the right upper midlung, suspicious for a focus of pneumonia' and would like to know if the patient requires antibiotics at this
time. hospitalist service and pulmonary made aware. procalcitonin level ordered. patient refused blood work at this time, stating he does not want to get stuck with a needle again. MD aware.
--- NOTE | 2025-05-17 15:09 | CM ---
F/U: Family requested Case Management. Family asking for [facility] V[facility]/OT/PT. Family chose [facility], referral made. CM see that patient likely DC tomorrow. Patient cleared with PT/OT today. PLAN: Home w/ [facility].
[2025-05-17 16:30] LABS: Procalcitonin < 0.05 ng/ml (0.0-0.25)
--- NOTE | 2025-05-17 17:59 | PTCARENOTE ---
patient allowed blood draw. procal level drawn and sent. test reviewed by
[2025-05-17] MEDS: TOPROL XL 100 MG PO (20:59)
[2025-05-17] MEDS: XANAX 1 MG PO (21:00)
[2025-05-17] MEDS: LIPITOR 80 MG PO (21:00)
--- NOTE | 2025-05-17 23:41 | PTCARENOTE ---
Assumed care for patient overnight. Pt ambulated to the bathroom w/ standby assist. Pt set off chair alarm. Pt with urinary frequency, per family and patient request for purewick overnight. Jennifer care done, purewick placed. Pt on 1L NC, 96%. NSR on
the monitor. VSS. Assessment and care as charted, see worklist. Bed alarm on for safety.
[2025-05-18] VITALS (9 sets, daily range): BP systolic 94–126; BP diastolic 53–110
[2025-05-18] MEDS: ELIQUIS 5 MG PO (09:39)
[2025-05-18] MEDS: TOPROL XL 100 MG PO (09:39)
[2025-05-18] MEDS: PROTONIX 40 MG PO (09:39)
--- NOTE | 2025-05-18 09:56 | W.PN.CARDCBS ---
Today's Communication / Plan
-
Stable from a cardiac point of view for discharge
Continue medications as noted
Discharged on Lasix 20 mg oral daily
Close outpatient follow-up
VNA for blood work in 1 week.
Postop per surgery
Impression / Plan
-
PCP: Dr. Johan Cunningham
Card: Dr. Erica Barrett
Impression:
Presented to the ER with abrupt change in mental status and hypoxia 05/13/2025: Toxic metabolic encephalopathy is likely diagnosis
Recent admission for paraesophageal hernia repair at [facility] 05/10/2025 until 05/11/2025
Recent admission for acute HF 10/08/2024 until 10/14/2024
Acute hypoxic respiratory failure
Change in mental status
Elevated troponin, Suspect nonischemic myocardial injury
Acute HFpEF
Acute on chronic B/L LE edema
Hyponatremia
Hypocalcemia
h/o Hypoalbuminemia
Paroxysmal Afib
Chronic Eliquis OAC
Last dose 05/05/2025 due to paraesophageal hernia repair surgery 05/10/2025
h/o CVA by MRI in [place] 2021
Hyperlipidemia
Crohn's disease
Anemia
Lexiscan nuclear stress test 05/03/2025: Perfusion imaging reveals a small area of moderately to severely decreased counts in the apex, at rest defect remains predominantly fixed consistent with likely soft tissue attenuation, EF 57%
Echo 04/21/2024: EF 55-60%, mild MR, thickened aortic valve leaflets with normal excursion
Echo 10/09/2024: EF 60 to 65%. Mild TR. PAP 42 to 45 mmHg
Echo 04/26/2025: EF 55 to 60%, mild TR, trivial pericardial effusion, unchanged from echo 09/2024
Echo 05/13/2025:
1. Left ventricular ejection fraction is normal with an ejection fraction of 54 % by Kirby's biplane method of discs.
2. Right ventricular size and systolic function are within normal limits.
3. Aortic sclerosis without stenosis.
4. Mild tricuspid regurgitation. Estimated pulmonary artery pressure of 34 mmHg assuming a right atrial pressure of 8 mmHg.
5. Compared to prior study dated 04/26/2025, there is little significant change.
Brain MRI: multifocal acute to subacute embolic appearing punctate infarcts most suggestive of a cardioembolic source
Plan:
Stable overnight and from a cardiac point of view stable for discharge with close follow-up.
Telemetry remained stable reviewed by me. She has known atrial fibrillation/atrial tachycardia.
Continue beta-francisco. Continue oral anticoagulation. I stressed the importance of taking medicines as prescribed.
She remains on 1 L of oxygen but volume status appears reasonable
Will need VNA, PT and OT
Nephrology is managing diuretics with hyponatremia
Last sodium is reasonable.
She has chronic heart failure with preserved ejection fraction. Would recommend Lasix 20 mg daily as an outpatient. We will have her undergo labs in 1 week.
Troponin peaked at 0.197, Suspect nonischemic myocardial injury
Recent Lexiscan nuclear stress test negative for ischemia.
Diet has been managed by surgery status post paraesophageal surgery
We will continue to watch her closely.
Patient presents to the ER today with hypoxia and change in mental status and cardiology is consulted for possible acute HF. Patient was last seen in the office on 12/30/2024 and at that time appeared stable on a regimen of Lasix 40 mg daily
according to medication reconciliation list in the office, but patient family reports dosing was more like 3 times a week. Patient has chronic LE edema. Last admission for heart failure was 09/2024 and at that point patient diuresed to a dry weight
of 147lbs. In the interim patient saw a surgeon at [facility] and was offered paraesophageal hernia repair surgery. Patient had preoperative Lexiscan nuclear stress test on 05/03/2025 that was negative for ischemia. Patient had echocardiogram 04/26/2025
that showed preserved EF without significant valve disease. Patient's surgeon told her to stop Eliquis on 05/05/2025 and patient has surgery on 05/10/2025 at [facility]. Patient's family reports surgery was considered a success and patient has had
symptomatic improvement. Patient has been following a liquid diet and was able to return home on 05/11/2025. Family has been with the patient at all times and this morning she awoke in her usual state of health, ate some Jell-O took a pain
medication and then lay down to take a nap. The patient's son checked on her at around 930 and the patient was unresponsive and did not awaken easily and 911 was called. Patient was noted to be hypoxic at 40% on room air and supplemental oxygen
therapy was started. In the emergency room initially patient was responsive to pain with palpation of the abdomen. CT of the head without acute intracranial abnormality and neurology saw the patient for possible stroke alert, but they do not feel
patient's presentation is consistent with CVA. Additional labs then returned including a proBNP of 21,800 which is her highest level on record and CT of the chest suggested small B/L pleural effusions. Patient was ordered Lasix 40 mg IV by ER
attending, but has yet to receive that dose. Sodium level was 123 initially.
Progress Note - Health Concierge
Subjective
Date of Service: May 18, 2025
She is sitting in the chair. She is fatigued but no complaint.
Objective
Labs:
05/17/25 05:42
05/17/25 05:42
Labs
Hgb 10.7 g/dL (12.0-16.0) L 05/17/25 05:42
Hct 33.7 % (37.0-47.0) L 05/17/25 05:42
Plt Count 212 10^3/uL (130-400) 05/17/25 05:42
PT 14.8 Sec (11.4-14.6) H 05/13/25 12:58
INR 1.18 05/13/25 12:58
APTT 42.6 Sec (23.4-35.0) H 05/13/25 12:58
Sodium 131 mmol/L (135-145) L 05/17/25 05:42
Potassium 3.4 mmol/L (3.5-5.1) L 05/17/25 05:42
BUN 13 mg/dl (7-17) 05/17/25 05:42
Creatinine 0.6 mg/dL (0.6-1.0) 05/17/25 05:42
Glucose 92 mg/dl (70-99) 05/17/25 05:42
Vital Signs and I&O:
Vital Signs
Temp Pulse Resp BP Pulse Ox
97.6 F 82 25 107/57 97
05/18/25 08:05 05/18/25 06:00 05/18/25 06:00 05/18/25 06:00 05/18/25 02:00
Vital Signs
Temp Pulse Resp BP Pulse Ox
97.6 F 82 25 107/57 97
05/18/25 08:05 05/18/25 06:00 05/18/25 06:00 05/18/25 06:00 05/18/25 02:00
Intake & Output
05/16/25 05/17/25 05/18/25 05/19/25
06:59 06:59 06:59 06:59
Intake Total 400 / 400 960 / 960
Output Total 1175 / 1175 600 / 600
Balance -775 / -775 -600 / -600 960 / 960
Physical Exam
Physical Exam
General: Frail elderly woman
Heart: Distant heart sounds
Lungs: Bibasilar crackles. Subcu air
Extremities: No clubbing, cyanosis and trace edema bilaterally.
Neuro: Grossly nonfocal, awake, alert and oriented x3.
--- NOTE | 2025-05-18 10:11 | W.PN.PUL.V3 ---
Today's Communication / Plan
-
Wean oxygen
Observe off antibiotics
Outpatient radiographic follow-up
Diuresis per cardiology
Respiratory status stable-pulmonary will sign off-please call with questions
Assessment
-
85-year-old female with prior history of CVA, Crohn's disease, A-fib on Eliquis presents to ER for being found unresponsive by family just prior to arrival. She was recently admitted at [facility] for paraesophageal hernia repair,
taken off her Eliquis for procedure. On arrival to ER her O2 malachi was 40%, she was placed on high flow nasal cannula. CT imaging demonstrating extensive subcutaneous emphysema as well as prominent pneumomediastinum, 2 gas containing foci within
the posterior mediastinum suggesting distal esophageal injury, moderate bilateral pleural effusions with collapse of the lower lobe. Admitted to IMU, we are consulted for evaluation.
Acute hypoxic respiratory failure
Pneumomediastinum, subcutaneous emphysema
Suspect perforated esophageal injury with 2 gas containing foci
Status post recent paraesophageal hernia repair
Moderate bilateral pleural effusions, likely acute on chronic heart failure
Conditions present prior to admission:
breast cancer s/p lumpectomy
Crohn's disease
skin cancer bcc nose/MOHS
Hyperlipidemia
HTN
GERD with large hiatal hernia
Iron def anemia
Paroxysmal atrial fibrillation on Eliquis
Patent foramen ovale
Obesity
Total hip replacement surgery after fall, left 12/2021
Septoplasty
History of GI Bleed 2019
[facility] - heart failure 10/08-
Plan
Respiratory status stable
Continue supplemental oxygen as needed-currently on 1 L - 96% saturation
Assess discharge supplemental oxygen needs prior to discharge
Chest x-ray 05/17/2025-large amount of subcutaneous emphysema, no definitive pneumothorax, patchy parenchymal opacification right upper and mid lung oakes which is new
Observe off antibiotics
Currently afebrile, no leukocytosis, procalcitonin negative
Suspect patient has postoperative changes from recent paraesophageal hernia repair
She has diffuse severe subcutaneous emphysema, pneumomediastinum, small pneumothorax
Care team has communicated with surgeon at [facility], this was felt to be expected postoperative changes
Gastrografin study negative for perforation
Diuresis as tolerated
Monitor renal function, electrolytes, intake/output, lower extremity edema and weight
Replace electrolytes as needed
Monitor for atrial tachycardia
Toprol increased
Cardiology following-correspondence reviewed
Monitor renal function
Monitor electrolytes
Nephrology following-correspondence reviewed
DVT prophylaxis- On Eliquis
GI prophylaxis-on pantoprazole
Nutrition-patient requesting diet advancement
Early mobilization
Respiratory status stable-pulmonary will sign off-please call with questions
Will need outpatient pulmonary evaluation for PFTs and 6MWT
Diagnostic Data
Chest X-Ray: 05/13/25-There is elevation of the left hemidiaphragm. There is an air collection under the diaphragm which is likely related to an elevated gastric bubble. There has been recent paraesophageal hernia surgery which could be the etiology
of the extensive subcutaneous emphysema.
CT Scan: 05/13/25-1. No evidence of pulmonary embolism.
2. There is extensive subcutaneous emphysema as well as prominent pneumomediastinum. There are 2 gas containing foci within the posterior mediastinum adjacent to the distal esophagus which raises the possibility of distal esophageal injury as the
etiology of the pneumomediastinum. Consider direct visualization for further evaluation.
3. Moderate bilateral pleural effusions with partial collapse of the left lower lobe and adjacent atelectasis within the right lower lobe.
4. Trace right apical pneumothorax.
Echo: 04/26/25-. Normal left ventricular chamber size myocardial thickness and systolic function. Left ventricular ejection fraction 55 to 60%.
2. Mild tricuspid regurgitation.
3. Trivial pericardial effusion is present.
4. Technically fair study.
5. Compared to previous echo from September 2024, findings are similar.
10/09/24- Normal left ventricular size, wall thickness and systolic function with normal regional wall motion Left ventricular ejection fraction visually estimated 60-65% Normal RV size and systolic function Thickened mitral valve leaflets with no
significant mitral regurgitation Trileaflet, mildly sclerotic aortic valve without stenosis. No significant aortic regurgitation. Mild tricuspid regurgitation
Estimated pulmonary artery pressure of 42-45 mmHg. Assuming a right atrial pressure of 5-8 mmHg. Trivial pericardial effusion Compared to prior study dated 04/21/2024, LV systolic function is preserved/vigorous. Pulmonary pressures slightly
increased compared to prior, previously estimated 25 mmHg.
.
Subjective Data
-
Date of Service:
Date of Service: May 18, 2025
Chief Complaint: Pulmonary Follow Up and Dyspnea Follow Up
Subjective:
Feels better, minimal cough, no chest pain or abdominal pain
Review of Systems
General: Other (Per HPI)
Objective Data
Data Reviewed
Vital Signs / I&O:
Vital Signs
Temp Pulse Resp BP Pulse Ox
97.6 F 82 25 107/57 94
05/18/25 08:05 05/18/25 06:00 05/18/25 06:00 05/18/25 06:00 05/18/25 09:51
Intake and Output
05/17/25 05/18/25 05/19/25
06:59 06:59 06:59
Intake Total 960 / 960
Output Total 600 / 600
Balance -600 / -600 960 / 960
SaO2: 94
Nasal Cannula flow liters per minute: 2
Physical Exam
General: Respiratory Distress (n) and Comfortable
HEENT: Normocephalic
Cardiovascular: Regular Rhythm
Respiratory: Clear and Non-Labored Respirations
GI: Soft and Non Distended
Neurology: Awake, Alert and No Motor Deficits
Skin: Warm, Good Color, Cyanosis (n) and Jaundice (n)
Labs/Micro/Reports
Lab Data
05/17/25 05:42
05/17/25 05:42
--- NOTE | 2025-05-18 11:08 | W.PN.HOSP.TC ---
Addendum entered and electronically signed by Jose Colon MD 05/18/25 14:30:
Patient requires portable oxygen concentrator to leave home for doctors appointments. O2 sats drop during ambulation and poc has a rechargeable battery that will last while away from home.
Addendum entered and electronically signed by Jose Colon MD 05/18/25 14:07:
Medically cleared for discharge.
Total time spent on d/c = 40 min. This included today's physical exam, progress note, review of laboratory and diagnostic data, preparation of discharge documents and prescriptions, and discussions about the pt's hospital course and discharge plan
with the patient and other medical staff specialist involved in the patient's care.
Original Note:
Today's Communication/Plan
-
see plan
Assessment / Plan
Assessment / Plan
Admission summary: 42-twrs[age]-wli female with past medical history for CVA, Crohn's disease presents for department due to being found unresponsive by family just prior to arrival. denied MINOR, dizzy or syncope. denied fever, chills, chest pain. she
has LE edema which is chornic as per family. denied dysuria or hematuria. Patient status post hiatal hernia repair this past week at [facility]. She was taken off of her Eliquis for her atrial fibrillation, and has not yet restarted
it. She took OxyContin at about 10:30 AM. Her oxygenation was 40% on room air upon EMS arrival. Initially placed on high flow oxygen.
Gen: NAD, AAOx3, appears chronically ill.
Eyes: EOMI, no scleral icterus.
Neck: supple.
CV: RRR, +S1/S2, no m/r/g.
Resp: CTAB, no rales, wheezes, or rhonchi.
Abd: +BS, soft, NT, ND
Skin: No rashes. trace B/L ankle edema
Neuro: CN 2-12 intact, non-focal.
Psych: Normal mood and affect.
CXR 05/13: There is elevation of the left hemidiaphragm. There is an air collection under the diaphragm which is likely related to an elevated gastric bubble. There has been recent paraesophageal hernia surgery which could be the etiology of the
extensive subcutaneous emphysema. There is airspace disease in the right lower lobe which is likely atelectasis.
CTA chest 05/13:
1. No evidence of pulmonary embolism.
2. There is extensive subcutaneous emphysema as well as prominent pneumomediastinum. There are 2 gas containing foci within the posterior mediastinum adjacent to the distal esophagus which raises the possibility of distal esophageal injury as the
etiology of the pneumomediastinum. Consider direct visualization for further evaluation.
3. Moderate bilateral pleural effusions with partial collapse of the left lower lobe and adjacent atelectasis within the right lower lobe.
4. Trace right apical pneumothorax.
CTA head/neck 05/13:
1. No evidence of large vessel occlusion, or arterial dissection.
2. Extensive subcutaneous emphysema within the soft tissues of the head and neck, retropharyngeal space, and mediastinum. No apical pneumothorax on either side.
3. Small bilateral pleural effusions.
4. 2 cm right thyroid nodule. Consider nonemergent thyroid ultrasound for further characterization.
CT brain 05/13:
1. There are moderate changes of cortical atrophy and chronic ischemic disease.
2. There is an old infarct in the left cerebellum
3. There is extensive subcutaneous emphysema in the soft tissues of the neck.
Echo 05/14:
1. Left ventricular ejection fraction is normal with an ejection fraction of 54 % by Kirby's biplane method of discs.
2. Right ventricular size and systolic function are within normal limits.
3. Aortic sclerosis without stenosis.
4. Mild tricuspid regurgitation. Estimated pulmonary artery pressure of 34 mmHg assuming a right atrial pressure of 8 mmHg.
5. Compared to prior study dated 04/26/2025, there is little significant change.
Esophagram: No definitive extravasation of contrast that would confirm distal esophageal perforation.
MRI brain 05/15: Numerous small foci of restricted diffusion involving the bilateral cerebellar hemispheres, occipital lobes and parietal lobes consistent with posterior cerebral artery territory infarctions. Mild atrophy with sequelae of mild
chronic small vessel ischemic disease and encephalomalacia within the left occipital lobe.
CXR 05/16: Tiny bilateral apical pneumothoraces, more pronounced on the right. Small/moderate left-sided pleural effusion and a small right pleural effusion with adjacent airspace opacities which likely represents atelectasis. Extensive subcutaneous
edema and known pneumomediastinum which is similar in appearance to prior.
Acute hypoxic respiratory failure due to acute on chronic HFpEF:
-cards following
-proBNP 21,800
-echo above
-acute metabolic encephalopathy likely due to acute hypoxic respiratory failure due to acute on chronic HFpEF. Also, posterior strokes may have contributed to acute encephalopathy.
-was on high flow O2, now weaned to 1L NC O2
-was diuresed with IV lasix, now transitioned to Lasix 20mg daily as per cardiology. Dr. Erica Barrett has cleared the pt for d/c from a cardiac standpoint.
-daily wts, I/Os
-note, pt's family reports pt has O2 at home that she uses intermittently at 2L/min so this would qualify and chronic hypoxemic respiratory failure
B/L posterior circulation distribution CVAs:
-currently on Eliquis, suspect CVAs due to Eliquis being held perioperatively for hiatal hernia repair (not an eliquis failure)
-cont statin
Pneumomediastinum:
-CT chest above
-Esophagram above, no esophageal leak
-prior physician discussed with surgery at [place] who stated that that could be a normal finding postoperatively
-CXR 05/16 noted, suspect that B/L apical pneumothoraces related to recent hiatal hernia repair
Other problems:
Hypocalcemia, improved
Hypokalemia, recheck K
Hypomagnesemia s/p IV Mg, recheck Mg
Elevated troponin, nonischemic myocardial injury
Acute hyponatremia, improving with diuresis
ALBAN on CKD3b, resolved with diuresis (CRS)
Recent paraesophageal hernia repair/known subcutaneous emphysema
Anemia of chronic disease: Hb stable
PAF: cont Eliquis/BB
Crohn�s disease: on Skyrizi
h/o breast CA
h/o skin CA
HLD: cont statin
GERD: cont PPI
Anxiety: cont Xanax
Pt's granddaughter updated at bedside.
FULL/Eliquis
Dispo: check Mg/K, possible d/c later today vs tomorrow.
Anticipated Discharge: Within 24 hours
Subjective/Interval History
-
Date of Service: May 18, 2025
No new complaints.
Objective Data
-
Vital Signs:
Vital Signs
Temp Pulse Resp BP Pulse Ox
97.6 F 82 25 107/57 94
05/18/25 08:05 05/18/25 06:00 05/18/25 06:00 05/18/25 06:00 05/18/25 10:12
I&O
05/17/25 05/18/25 05/19/25
06:59 06:59 06:59
Intake Total 960 / 960
Output Total 600 / 600
Balance -600 / -600 960 / 960
[2025-05-18] MEDS: LASIX 20 MG PO (12:25)
--- NOTE | 2025-05-18 12:25 | W.PN.NEPH.PH ---
Today's Communication / Plan
-
AM lab
Lasix 20 daily
Assessment/Plan
-
Impression
hyponatremia at 123 with altered mental status in the setting of hypoxia
hypocalcemia
chronic kidney disease stage IIIB based on creatinine 1.1 -1.2
emphysema on imaging
CHF with preserved EF as of 2024
atrial fibrillation
Plan
Lasix held
Repeat echo EF 54% with increased pulmonary artery pressure
Creatinine normalized
Weight is down from admission
follow BMP
Recheck in the a.m.
Okay with Lasix daily on discharge
-
-
Date of Service: May 18, 2025
CC / HPI / ROS
-
Chief Complaint:
hyponatremia
History of Present Illness:
Na up to 133
Calcium stable 8.1
CR increasing
BP stable
Review of Systems:
no CP/SOB
Labs
-
Labs:
WBC 5.3 10^3/uL (4.8-10.8) 05/17/25 05:42
RBC 3.87 10^6/uL (4.20-5.40) L 05/17/25 05:42
Hgb 10.7 g/dL (12.0-16.0) L 05/17/25 05:42
Hct 33.7 % (37.0-47.0) L 05/17/25 05:42
Plt Count 212 10^3/uL (130-400) 05/17/25 05:42
eGFR > 60.00 05/17/25 05:42
Fbl-K-Wbetshvbjvc Pept 38774 pg/ml 05/13/25 23:50
Albumin 2.9 g/dl (3.5-5.0) L 05/13/25 18:06
Physical Exam
-
Vital Signs:
Vital Signs
Temp Pulse Resp BP Pulse Ox
98.9 F 82 25 107/57 94
05/18/25 11:23 05/18/25 06:00 05/18/25 06:00 05/18/25 06:00 05/18/25 10:12
Cardiovascular:: Regular rate and rhythm
Respiratory:: Bilateral: Coarse
Lung Excursion:: Normal
Abdomen:: Nontender and Soft
Bowel Sounds:: Normal
Extremity Edema:: +1: Bilateral:
[2025-05-18 13:03] LABS: Blood Urea Nitrogen 16 mg/dl (7-17); Calcium 8.1 mg/dl (8.4-10.2); Carbon Dioxide 36 mmol/L (22-30); Chloride 95 mmol/L (98-107); Glucose 90 mg/dl (70-99); Magnesium 2.3 mg/dl (1.6-2.3); Potassium 3.8 mmol/L (3.5-5.1); Sodium 132 mmol/L (135-145); eGFR > 60.00
--- NOTE | 2025-05-18 13:22 | PTCARENOTE ---
Pt sating mid to high 90's on 2L NC. Pt trialed on RA and sats dropped to the high 80's. Placed back on 2L.
--- NOTE | 2025-05-18 15:11 | PTCARENOTE ---
Pt sating mid to high 90's on 2L NC. Trialed on room air with sats approx 88-89% at rest. Pt placed back on 2L and sats recovered to mid 90's.
--- NOTE | 2025-05-18 15:24 | PTCARENOTE ---
Pt for d/c; awaiting delivery of O2 tank.
--- NOTE | 2025-05-18 16:33 | CM ---
F/U: Patient is discharging. ZAC Espinosa sent clinical to [facility]- they asked for delayed start of care, so responded today to say that 05/20 is fine- CM call to let them know.
ZAC is aware from the son that patient has home O2 already on 2 liters, son asked for portable oxygen tank that the patient can use for appointments. ZAC obtained the order form then the note- faxed to [facility].
Then son said that he needs a tank here for the patient. ZAC spoke to [facility], found out that the patient has a nocturnal order, not regular, so just has an empty tank that she used then it's one and done. ZAC Espinosa then had the nurse provide
documentation that she desaturated to 88% on rest, provided this with another order form- patient approved for regular oxygen.
The [employer] racing driver is now late so will meet the patient at their home tonight per [facility]. ZAC Espinosa ensure that [facility] will start this week- 05/20 after phone call with intake. IMM completed. PLAN: Home w/ new order for regular O2 plus [facility].
--- NOTE | 2025-05-18 17:18 | PTCARENOTE ---
Pt and family refusing to wait for O2 tank and insisting on d/c. IV and monitor equipment removed. Instructions reviewed with pt and family. D/c off unit via wheelchair.
--- NOTE | 2025-05-19 09:38 | W.HF.CON ---
Heart Failure
- LV Function
Left ventricular function study result: LV Ejection fraction >/= 50%
Ejection Fraction Percentage: 54
- ARNI
Patient already on ARNI: No
Heart Failure ARNI Not Indicated: LV Ejection Fraction >/= 40%
- ACEI/ARB
Patient already on ACEI/ARB: No
Heart Failure ACEI/ARB Not Indicated: LV Ejection Fraction > 40%
- Beta Marzena
Patient already on Evidence Based Beta Marzena: Yes
- Mineralocorticord Receptor Antagonist
Patient already on MRA: No
Heart Failure MRA Not Indicated: LV Ejection Fraction > 40%
- SGLT-2 Inhibitor
Patient already on SGLT-2 Inhibitor: No
Heart Failure SGLT-2 Inhibitor Not Indicated: LV Ejection Fraction >40%
- Afib Anticoagulation
Patient already on Anticoagulation for Afib: Yes
- NYHA CHF Classification
NYHA CHF Classification Level: Class III - Symptoms w/ min exertion, interferes w/ nml daily activity
- ACC/AHA Stage
ACC/AHA Stage: Stage C: Symptomatic Heart Failure
== END 2025-05-18 17:43 | disposition home health service (06) | DRG 199 ==
LOC: IMU 16:30
PROVIDERS: Registered Nurse; Specialist; ADMITTING PHYSICIAN General Practice; ATTENDING PHYSICIAN Internal Medicine; CONSULT PHYSICIAN Internal Medicine Cardiovascular Disease; CONSULT PHYSICIAN Internal Medicine Nephrology; CONSULT PHYSICIAN Surgery; EMERGENCY PHYSICIAN Emergency Medicine; OTHER PHYSICIAN Internal Medicine; OTHER PHYSICIAN Psychiatry & Neurology Neurology
DX: T79.7XXA Traumatic subcutaneous emphysema, initial encounter (principal); G92.8 Other toxic encephalopathy; I50.33 Acute on chronic diastolic (congestive) heart failure; J96.01 Acute respiratory failure with hypoxia; I63.9 Cerebral infarction, unspecified; I13.0 Hypertensive heart and chronic kidney disease with heart failure and stage 1 through stage 4 chronic kidney disease, or unspecified chronic kidney disease; J98.11 Atelectasis; E87.1 Hypo-osmolality and hyponatremia; I5A Non-ischemic myocardial injury (non-traumatic); Q21.12 Patent foramen ovale; N18.32 Chronic kidney disease, stage 3b; E83.51 Hypocalcemia; D63.1 Anemia in chronic kidney disease; I48.0 Paroxysmal atrial fibrillation; Z85.3 Personal history of malignant neoplasm of breast; K21.9 Gastro-esophageal reflux disease without esophagitis; F41.9 Anxiety disorder, unspecified; Z79.01 Long term (current) use of anticoagulants; E04.1 Nontoxic single thyroid nodule; K57.30 Diverticulosis of large intestine without perforation or abscess without bleeding; Z79.899 Other long term (current) drug therapy; Z87.891 Personal history of nicotine dependence; D50.9 Iron deficiency anemia, unspecified; E66.9 Obesity, unspecified; E78.00 Pure hypercholesterolemia, unspecified; Z96.642 Presence of left artificial hip joint; Y83.8 Other surgical procedures as the cause of abnormal reaction of the patient, or of later complication, without mention of misadventure at the time of the procedure
CPT/HCPCS: 0042T; 51798; 70450; 70496; 70498; 70551; 71045; 71275; 74220; 80048; 80053; 80061; 81003; 81015; 82607; 82728; 82746; 83735; 83880; 84145; 84443; 84484; 85025; 85027; 85610; 85730; 93005; 93308; 93321; 93325; 96374; 97162; 97167; 97530; 99291; Q9967